=== PATIENT | female | born 1970 | race Caucasian/White ===

== ENCOUNTER 2019-11-05 11:04 | Outpatient (CLI) | payer OTHER, MEDICARE, MEDICAID, SELFPAY ==
--- NOTE | ~2019-11-05 | MM_ITS ---
EXAMINATION: MM screening [place] BI w lesli HISTORY: Screening mammogram TECHNIQUE: Craniocaudal and mediolateral oblique 3-D tomosynthesis images were obtained and synthetic 2-D images were generated. CAD analysis was submitted and interpreted. COMPARISON: Comparison to multiple prior studies sequentially, with oldest reviewed study dated 08/2015. BREAST PARENCHYMAL COMPOSITION: There are scattered areas of fibroglandular density. FINDINGS: There is no evidence of suspicious mass, calcification, or architectural distortion to sugg est malignancy in either breast. There has been no suspicious interval change. IMPRESSION: 1. No mammographic evidence of malignancy. 2. Recommend routine screening mammography in one year. BI-RADS Category 1: Negative Reviewed, dictated and finalized at location A.
== END 2019-11-05 11:05 | disposition home or self-care (01) ==
PROVIDERS: PCP Family Medicine; Visit Provider Family Medicine
DX: Z12.31 Encounter for screening mammogram for malignant neoplasm of breast (principal)
CPT/HCPCS: 77063; 77067

== ENCOUNTER 2019-11-28 09:56 | Outpatient (CLI) | payer OTHER, MEDICARE, MEDICAID, SELFPAY ==
[2019-11-28 10:25] LABS: Basophils Absolute Auto 0.05 K/mm3 (0.00-0.10); Basophils Percent Auto 0.6 % (0.0-1.0); Eosinophils Absolute Auto 0.19 K/mm3 (0.02-0.50); Eosinophils Percent Auto 2.2 % (1.0-6.0); Hematocrit 37.9 % (35.0-49.0); Hemoglobin 11.6 g/dL (12.0-15.0); Immature Granulocyte Absolute 0.02 K/mm3 (0.00-0.00); Immature Granulocyte Percent A 0.2 % (0.0-0.0); Lymphocytes Absolute Auto 2.87 K/mm3 (1.10-4.50); Lymphocytes Percent Auto 32.9 % (18.0-42.0); Mean Corpuscular HGB Conc 30.6 g/dL (32.0-36.0); Mean Corpuscular Hemoglobin 22.1 pg (27.0-31.0); Mean Corpuscular Volume 72.2 fL (78.0-102.0); Monocytes Absolute Auto 0.75 K/mm3 (0.10-0.90); Monocytes Percent Auto 8.6 % (2.0-11.0); Neutrophils Absolute Auto 4.9 K/mm3 (1.7-7.2); Neutrophils Percent Auto 55.5 % (50.0-70.0); Platelet Count Result 393 K/mm3 (150-420); Red Blood Count 5.25 M/mm3 (4.20-5.40); Red Cell Distribution Width 16.2 % (11.6-14.4); White Blood Count 8.7 K/mm3 (4.8-10.8)
[2019-11-28 11:12] LABS: Alanine Aminotransferase 22 U/L (14-59); Albumin Level 3.5 g/dL (3.4-5.0); Alkaline Phosphatase 83 U/L (46-116); Anion Gap 11.2 mmol/L (7-16); Aspartate Amino Transferase 18 U/L (15-37); Bilirubin,Total 0.3 mg/dL (0.00-1.00); Blood Urea Nitrogen 18 mg/dL (7-18); Calcium 8.1 mg/dL (8.5-10.1); Carbon Dioxide 35 mmol/L (21-32); Chloride 95 mmol/L (98-108); Cholesterol 259 mg/dL (0-200); Estimated Glomerular Filt Rate 41; Glucose 110 mg/dL (70-99); HDL Direct 50 mg/dL (40-60); LDL Cholesterol Calculated 164 mg/dL (<130); Osmolality Calculated 288 mOsm/kg (285-295); Potassium 3.2 mmol/L (3.5-5.1); Sodium 138 mmol/L (136-145); Thyroid Stimulating Hormone Reflex 2.67 u/IU/mL (0.36-3.74); Total Protein 7.7 g/dL (6.4-8.2); Triglycerides 225 mg/dL (0-150)
== END 2019-11-28 09:57 | disposition home or self-care (01) ==
PROVIDERS: PCP Family Medicine; Visit Provider Family Medicine
DX: E03.9 Hypothyroidism, unspecified (principal); I10 Essential (primary) hypertension
CPT/HCPCS: 36415; 80053; 80061; 84443; 85025

== ENCOUNTER 2020-01-27 17:47 | Emergency (ER) | payer MEDICARE, MEDICAID, SELFPAY ==
--- NOTE | ~2020-01-27 | XR_ITS ---
EXAMINATION: XR foot RT min 3V DATE: 01/27/2020 20:19 INDICATION: Right fifth toe pain, initial encounter TECHNIQUE: Dorsoplantar, lateral, and 2 oblique views of the right foot were obtained. COMPARISON: 02/11/2017 FINDINGS: There is soft tissue swelling of the fifth toe. Mild osteoarthritis is seen at the lateral margin of the head of the fifth proximal phalanx. There is adjacent soft tissue swelling. No radiopaq ue foreign body is identified. Surgical changes are noted in the head of the fifth metatarsal as well as in the lateral malleolus. A plantar calcaneal enthesophyte is noted. IMPRESSION: 1. Findings suggestive of fracture at the lateral margin of the head of the fifth proximal phalanx. Reviewed, dictated and finalized at location A. IMPRESSION: 1. Findings suggestive of fracture at the lateral margin of the head of the fif th proximal phalanx.
--- NOTE | 2020-01-27 19:40 | ED.LOWEXIN ---
HPI - Extremity Injury (Lower) General Chief Complaint: Extremity Injury, Lower Stated Complaint: foot pain Time Seen by Provider: 01/27/20 19:52 Source: patient Mode of arrival: ambulatory Limitations: no limitations History of Present Illness HPI Narrative: 49-year-old woman comes in today complaining of a laceration between her right 4th and 5th toes that occurred approximately 5 hours ago. Patient states that she was walking outdoors and her socks when she stepped on a nail. She denies any numbness or tingling. She states that she had surgery of her right 5th toe several years ago. She denies history of diabetes. She states it has been greater than 5 years since her last tetanus shot. complaint: foot injury Injury: Right: toes Type of Injury: eversion and laceration Place: home and street/outdoors Severity: moderate Relieving factors: nothing Exacerbating factors: weight bearing, movement and palpation Context: walking and stepped on nail Associated symptoms: ambulatory Related Data Home Medications Medication Instructions Recorded Confirmed dexlansoprazole 60 mg 60 mg PO DAILY 06/04/19 01/08/20 capsule,biphase delayed release nystatin 100,000 unit/gram topical 1 applic TOPICAL BID 06/04/19 01/08/20 powder acetaminophen 500 mg capsule 500 mg PO Q6H PRN 11/05/19 01/08/20 Allergies Allergy/AdvReac Type Severity Reaction Status Date / Time Sulfa (Sulfonamide Allergy Unknown Unknown Verified 01/08/20 13:54 Antibiotics) Review of Systems Constitutional: Constitutional: Denies chills and Denies fever(s) Respiratory: Respiratory: Denies cough and Denies dyspnea Gastrointestinal: Gastrointestinal: Denies nausea and Denies vomiting Musculoskeletal: Musculoskeletal: Denies back pain, Reports arthralgias and Denies joint swelling Integumentary/Breasts: Skin/Breast: Denies pruritus, Denies rash and Denies skin ulcer Neurologic: Denies vertigo, Denies dizziness and Denies syncope Hematologic/Lymphatic: Hematologic/Lymphatic: Denies easy bleeding and Denies easy bruising PMFSH Past Medical History Medical History Depression GERD (gastroesophageal reflux disease) HTN (hypertension) Hyperlipidemia Hypothyroidism Osteoarthritis Osteoarthritis of right shoulder Trochanteric bursitis, right hip Surgical History Surgical History History of shoulder surgery (~07/23/18) Lt - Subscap Tendon Repair History of total replacement of left shoulder joint History of total shoulder replacement (~06/24/18) Lt Hx of cholecystectomy Hx of colonoscopy Hx of total knee replacement Right 2014 Left 2015 Family History Family History Sister Family history of migraine headaches Social History Social History Smoking status: Never smoker Tobacco type: cigarettes Alcohol intake: never Exam Const: General: healthy appearing and alert Nutritional Appearance: obese Orientation/consciousness: patient oriented x3 Limitations: no limitations Other: mild acute distress Resp: Effort & Inspection: normal respiratory effort and not labored Auscultation: clear to auscultation bilaterally, no rales, no rhonchi and no wheezes Cardio: Rate: regular rate Rhythm: regular rhythm Heart sounds: no murmurs Skin: General skin exam: normal color, no jaundice and no pallor Rashes: no rashes Other: 1 cm laceration in the interdigital space of the right 4th and 5th toes. Minimal gaping. No foreign body noted. Neuro: General: patient oriented x3, moves all extremities, no focal motor deficits and CN's II-XI intact bilaterally Speech: normal speech Other: Antalgic gait Extrem: General: normal to inspection and no clubbing, cyanosis or edema Psych: Appearance: grossly normal and well ke
[2020-01-27 19:52] VITALS: BP 141/96; PULSE 112; RESP 18; TEMP 36.8; O2SAT 94
[2020-01-27] MEDS: ACETAMINOPHEN/CODEINE (*CRX) 300/30 MG TABLET 1 TAB PO (20:39)
[2020-01-27] MEDS: TETANUS,DIPHTHERIA,AC PERTUSSIS ADULT 0.5 ML (ADACEL) IM (20:40)
[2020-01-27 21:05] VITALS: BP 146/78; PULSE 106; RESP 18; O2SAT 96
--- NOTE | 2020-01-27 21:07 | PC.NURSE ---
Right 5th toe cleansed, topical ABX ointment applied, wrapped in gauze. Walking boot applied and patient verbalized understanding of instructions
== END 2020-01-27 21:15 | disposition home or self-care (01) ==
PROVIDERS: Emergency Provider Emergency Medicine; PCP Family Medicine
DX: S91.114A Laceration without foreign body of right lesser toe(s) without damage to nail, initial encounter (principal); S92.354A Nondisplaced fracture of fifth metatarsal bone, right foot, initial encounter for closed fracture; W45.0XXA Nail entering through skin, initial encounter
CPT/HCPCS: 73630; 90471; 90715; 99283; 99284; A9270; L2112

== ENCOUNTER 2020-02-05 14:19 | Outpatient (CLI) | payer MEDICARE, OTHER, MEDICAID, SELFPAY ==
--- NOTE | 2020-02-05 14:22 | ECG_ITS ---
Measurements Intervals [place] Rate: 102 P: 58 VT: 162 QRS: 30 QRSD: 90 T: 50 QT: 372 QTc: 487 Interpretive Statements SINUS TACHYCARDIA LOW QRS VOLTAGE IN PRECORDIAL LEADS NONSPECIFIC ST & T-WAVE ABNORMALITY- DIFFUSE LEADS BASELINE ARTIFACT- II, III BORDERLINE ECG Electronically Signed On 02-05-2020 15:50:48 CDT by Delvin Whitehead D.O.
== END 2020-02-05 14:20 | disposition home or self-care (01) ==
PROVIDERS: PCP Nurse Practitioner Family; Visit Provider Nurse Practitioner Family
DX: R00.9 Unspecified abnormalities of heart beat (principal)
CPT/HCPCS: 93005

== ENCOUNTER 2020-03-05 09:19 | Outpatient (CLI) | payer OTHER, MEDICAID, SELFPAY ==
--- NOTE | ~2020-03-05 | XR_ITS ---
XR foot RT min 3V 03/05/2020 09:53 Indication: Right foot fracture follow-up Procedure: 4 views right foot Comparison: 01/27/2020 Findings: There is a nondisplaced fracture fifth proximal phalanx of the head no significant displace ment. Amputation distal aspect of the fifth metatarsal. No significant soft tissue abnormality. Lisfr anc joint is intact. No foreign bodies identified. There is a prominent degenerative calcaneal enthes ophyte. Impression: 1: Stable nondisplaced fracture distal aspect of the right fifth proximal phalanx. Reviewed, dictated and finalized at location A. Impression: 1: Stable nondisplaced fracture distal aspect of the right fifth proximal phala nx.
== END 2020-03-05 09:20 | disposition home or self-care (01) ==
LOC: CHSIMG 09:22
PROVIDERS: PCP Family Medicine; Visit Provider Podiatrist
DX: M79.671 Pain in right foot (principal); S92.514D Nondisplaced fracture of proximal phalanx of right lesser toe(s), subsequent encounter for fracture with routine healing
CPT/HCPCS: 73630

== ENCOUNTER 2020-12-08 13:38 | Outpatient (CLI) | payer OTHER, MEDICARE, MEDICAID, SELFPAY ==
--- NOTE | ~2020-12-08 | MM_ITS ---
EXAMINATION: MM screening dionne BI w lesli HISTORY: Screening TECHNIQUE: Craniocaudal and mediolateral oblique 3-D tomosynthesis images were obtained and synthetic 2-D images were generated. CAD analysis was submitted and interpreted. COMPARISON: 11/05/2019 BREAST PARENCHYMAL COMPOSITION: There are scattered areas of fibroglandular density. FINDINGS: There is no evidence of suspicious mass, calcification, or architectural distortion to sugg est malignancy in either breast. There has been no suspicious interval change. IMPRESSION: 1. No mammographic evidence of malignancy. 2. Recommend routine screening mammography in one year. BI-RADS Category 1: Negative Reviewed, dictated and finalized at location A.
== END 2020-12-08 13:39 | disposition home or self-care (01) ==
LOC: CHSIMG 13:42
PROVIDERS: PCP Family Medicine; Visit Provider Family Medicine
DX: Z12.31 Encounter for screening mammogram for malignant neoplasm of breast (principal)
CPT/HCPCS: 77063; 77067

== ENCOUNTER 2021-04-03 08:36 | Outpatient (CLI) | payer OTHER, MEDICARE, MEDICAID, SELFPAY ==
[2021-04-03 08:48] LABS: Basophils Absolute Auto 0.05 K/mm3 (0.00-0.10); Basophils Percent Auto 0.5 % (0.0-1.0); Eosinophils Absolute Auto 0.17 K/mm3 (0.02-0.50); Eosinophils Percent Auto 1.6 % (1.0-6.0); Hematocrit 34.6 % (35.0-49.0); Hemoglobin 10.2 g/dL (12.0-15.0); Immature Granulocyte Absolute 0.03 K/mm3 (0.00-0.00); Immature Granulocyte Percent A 0.3 % (0.0-0.0); Lymphocytes Percent Auto 22.8 % (18.0-42.0); Mean Corpuscular HGB Conc 29.5 g/dL (32.0-36.0); Mean Corpuscular Hemoglobin 21.3 pg (27.0-31.0); Mean Corpuscular Volume 72.1 fL (78.0-102.0); Mean Platelet Volume 9.8 fl (9.2-11.8); Monocytes Absolute Auto 0.78 K/mm3 (0.10-0.90); Monocytes Percent Auto 7.1 % (2.0-11.0); Neutrophils Absolute Auto 7.4 K/mm3 (1.7-7.2); Neutrophils Percent Auto 67.7 % (50.0-70.0); Platelet Count Result 382 K/mm3 (150-420); Red Cell Distribution Width 16.2 % (11.6-14.4)
[2021-04-03 10:34] LABS: Alanine Aminotransferase 14 U/L (14-59); Albumin Level 3.5 g/dL (3.4-5.0); Alkaline Phosphatase 90 U/L (46-116); Anion Gap 9 mmol/L (8-16); Aspartate Amino Transferase 14 U/L (15-37); Bilirubin,Total 0.3 mg/dL (0.00-1.00); Blood Urea Nitrogen 21 mg/dL (7-18); Calcium 8.2 mg/dL (8.5-10.1); Carbon Dioxide 33 mmol/L (21-32); Chloride 100 mmol/L (98-108); Cholesterol 189 mg/dL (0-200); Estimated Glomerular Filt Rate 44; Glucose 106 mg/dL (70-99); HDL Direct 48 mg/dL (40-60); LDL Cholesterol Calculated 107 mg/dL (<130); Osmolality Calculated 297 mOsm/kg (285-295); Potassium 3.9 mmol/L (3.5-5.1); Sodium 142 mmol/L (136-145); Total Protein 7.9 g/dL (6.4-8.2); Triglycerides 170 mg/dL (0-150)
== END 2021-04-03 08:37 | disposition home or self-care (01) ==
LOC: CHSLAB 08:40
PROVIDERS: PCP Family Medicine; Visit Provider Family Medicine
DX: E83.51 Hypocalcemia (principal); E87.6 Hypokalemia; I10 Essential (primary) hypertension; E78.5 Hyperlipidemia, unspecified; E03.9 Hypothyroidism, unspecified
CPT/HCPCS: 36415; 80053; 80061; 84443; 85025

== ENCOUNTER 2021-04-12 13:25 | Outpatient (NON) | payer OTHER, MEDICARE, MEDICAID, SELFPAY | END 2021-04-12 13:26 | disposition home or self-care (01) | LOC: CHSLAB 13:38 | PROVIDERS: Visit Provider Nurse Practitioner Family | DX: Z12.4 Encounter for screening for malignant neoplasm of cervix (principal); Z13.89 Encounter for screening for other disorder | CPT/HCPCS: 87491; 87591; 87624; 88175; G0145 ==

== ENCOUNTER → 2021-07-15 00:17 | Outpatient (CLI) | payer OTHER, MEDICARE, MEDICAID, SELFPAY ==
[2021-07-15 12:27] LABS: SARS-CoV-2 RNA PCR Negative
== END ==
PROVIDERS: PCP Family Medicine; Visit Provider Internal Medicine Gastroenterology
DX: Z01.812 Encounter for preprocedural laboratory examination (principal); Z20.822 Contact with and (suspected) exposure to COVID-19
CPT/HCPCS: C9803; U0003; U0005

== ENCOUNTER 2021-07-19 00:18 | Day surgery (SDC) | payer OTHER, MEDICARE, MEDICAID, SELFPAY ==
[2021-06-05 13:54] VITALS: BMI 40.8
--- NOTE | 2021-07-07 15:03 | PC.NURSE ---
Called pt. No change from previous PAT call.
[2021-07-19 08:05] VITALS: BP 150/100; PULSE 100; RESP 20; TEMP 36.1; O2SAT 99
[2021-07-19] MEDS: LACTATED RINGERS 1,000 ML 150 ML IV CONT (08:13)
--- NOTE | 2021-07-19 08:21 | WPDANESEPPF ---
Anes - Initial Pre Proc Eval Procedure: Operation Date: 07/19/21 09:00 Proposed Procedures p Esophagogastroduodenoscopy - Rickie Roque MD Date/Time: 07/19/21 08:21 Surgeon: Rickie Roque MD Pre Op Diagnosis: GERD, dysphagia Patient Data Age: 51 Gender: F Height: 1.52 m Weight: 97 kg Last Vital Signs Temp 36.1 C L 07/19/21 08:05 Pulse 100 07/19/21 08:05 Resp 20 07/19/21 08:05 BP 150/100 H 07/19/21 08:05 Pulse Ox 99 07/19/21 08:05 Allergies Allergy/AdvReac Type Severity Reaction Status Date / Time Sulfa (Sulfonamide Allergy Unknown Unknown Verified 07/19/21 08:02 Antibiotics) Home Medications Medication Instructions Recorded Confirmed Type nabumetone 500 mg tablet 500 mg PO BID 06/03/20 07/07/21 History acetaminophen 500 mg capsule See Rx Instructions .ROUTE 07/01/20 07/07/21 Rx .COMPLEX #120 capsule calcium carbonate 500 mg calcium 1,000 mg PO BID #60 tablet 04/07/21 07/07/21 Rx (1,250 mg) tablet cholecalciferol (vitamin D3) 125 125 mcg PO DAILY #30 cap 04/07/21 07/07/21 Rx mcg (5,000 unit) capsule famotidine 20 mg tablet 20 mg PO QHS 90 Days #90 tablet 05/01/21 07/07/21 Rx atorvastatin 40 mg tablet 40 mg PO DAILY #90 tablet 05/22/21 07/07/21 Rx chromium-brindal muhammad [Garcinia 1 tablet PO BID 06/05/21 07/07/21 History Cambogia] ferrous sulfate 325 mg PO EVERY OTHER DAY 06/05/21 07/07/21 History hydrochlorothiazide 25 mg tablet 25 mg PO DAILY #90 tablet 06/05/21 07/07/21 Rx nystatin 100,000 unit/gram topical 1 applic TOPICAL BID #60 g 06/21/21 07/07/21 Rx powder omeprazole 40 mg capsule,delayed 40 mg PO DAILY 90 Days #90 cap 06/23/21 07/07/21 Rx release Patient hx anesthesia problems: none Family hx anesthesia problems: none Results Review: All pre-operative results and documents have been reviewed as part of the pre-operative evaluation. [facility] [place] Past Medical History Medical History Depression GERD (gastroesophageal reflux disease) HTN (hypertension) Hyperlipidemia Hypocalcemia Hypothyroidism Osteoarthritis Osteoarthritis of right shoulder Sebaceous cyst Trochanteric bursitis, right hip Surgical History Surgical History History of shoulder surgery (~07/23/18) Lt - Subscap Tendon Repair History of total replacement of left shoulder joint History of total shoulder replacement (~06/24/18) Lt Hx of cholecystectomy Hx of colonoscopy Hx of total knee replacement Right 2014 Left 2015 Family History Family History Sister Family history of migraine headaches Social History Social History Smoking status: Never smoker Alcohol intake: current Alcohol use details: Occasional use Substance use type: does not use Living arrangements: alone Gender identity (if verbalized by the patient): Female Spiritual care concerns: No Anes - Eval Final PreProcedure Day of Procedure 07/19/21 08:21 Patient weight: morbidly obese Heart: regular rate and rhythm Lungs: clear to auscultation Airway: Mallampati scale class II and special considerations poor opening Neurological: alert and oriented Last oral intake: >/= 8 hours ASA classification: III Emergent: no Anesthetic plan: proceed Anesthesia type and monitoring: general GIVS and standard monitoring Results Review: All pre-operative results and documents have been reviewed as part of the pre-operative evaluation. Informed Consent: The patient's anesthetic plan and its attendant risks and benefits were discussed with the patient/family/POA. Questions were solicited and answers provided to the satisfaction of the patient/family/POA.
--- NOTE | 2021-07-19 08:46 | PM.HPGS ---
History of Present Illness History of Present Illness Consent: Risks, benefits, and alternatives have been discussed and questions answered. Patient agrees to proceed with procedure. Chief complaint: GERD, dysphagia Narrative: Lorena Jensen is a 51 year old female with dysphagia to solids. reports sensation in the neck area. She has hx of previous dilation- in 2019 with 54 fr Newman and in 2017. GERD on omeprazole and pepcid. Review of Systems Constitutional: Constitutional: Denies headache(s) and Denies weakness Eyes: Eyes: Denies blurry vision ENT: Reports Normal hearing present, Denies headache(s) and Denies neck pain Cardiovascular: Cardiovascular: Denies chest pain and Denies dyspnea Respiratory: Respiratory: Denies dyspnea Gastrointestinal: Gastrointestinal: Reports no additional gastrointestinal complaints Genitourinary: Genitourinary: Denies dysuria Musculoskeletal: Musculoskeletal: Denies neck pain Integumentary/Breasts: Skin/Breast: Denies dry skin Neurologic: Reports Normal hearing present, Denies headache(s) and Denies weakness Psychiatric: Psychiatric: Denies anxiety Endocrine: Endocrine: Denies change in body appearance Hematologic/Lymphatic: Hematologic/Lymphatic: Denies easy bleeding Allergic/Immunologic: Allergic/Immunologic: Denies urticaria [facility] Past Medical History Medical History (Updated 07/19/21 @ 08:46 by Rickie Roque MD) Depression Dysphagia GERD (gastroesophageal reflux disease) HTN (hypertension) Hyperlipidemia Hypocalcemia Hypothyroidism Osteoarthritis Osteoarthritis of right shoulder Sebaceous cyst Trochanteric bursitis, right hip Surgical History Surgical History History of shoulder surgery (~07/23/18) Lt - Subscap Tendon Repair History of total replacement of left shoulder joint History of total shoulder replacement (~06/24/18) Lt Hx of cholecystectomy Hx of colonoscopy Hx of total knee replacement Right 2014 Left 2014 Family History Family History Sister Family history of migraine headaches Social History Social History Smoking status: Never smoker Alcohol intake: current Alcohol use details: Occasional use Substance use type: does not use Living arrangements: alone Gender identity (if verbalized by the patient): Female Spiritual care concerns: No Meds Home Medications and Allergies Home Medications Medication Instructions Recorded Confirmed Type nabumetone 500 mg tablet 500 mg PO BID 06/03/20 07/07/21 History acetaminophen 500 mg capsule See Rx Instructions .ROUTE 07/01/20 07/07/21 Rx .COMPLEX #120 capsule calcium carbonate 500 mg calcium 1,000 mg PO BID #60 tablet 04/07/21 07/07/21 Rx (1,250 mg) tablet cholecalciferol (vitamin D3) 125 125 mcg PO DAILY #30 cap 04/07/21 07/07/21 Rx mcg (5,000 unit) capsule famotidine 20 mg tablet 20 mg PO QHS 90 Days #90 tablet 05/01/21 07/07/21 Rx atorvastatin 40 mg tablet 40 mg PO DAILY #90 tablet 05/22/21 07/07/21 Rx chromium-brindal muhammad [Garcinia 1 tablet PO BID 06/05/21 07/07/21 History Cambogia] ferrous sulfate 325 mg PO EVERY OTHER DAY 06/05/21 07/07/21 History hydrochlorothiazide 25 mg tablet 25 mg PO DAILY #90 tablet 06/05/21 07/07/21 Rx nystatin 100,000 unit/gram topical 1 applic TOPICAL BID #60 g 06/21/21 07/07/21 Rx powder omeprazole 40 mg capsule,delayed 40 mg PO DAILY 90 Days #90 cap 06/23/21 07/07/21 Rx release Allergies Allergy/AdvReac Type Severity Reaction Status Date / Time Sulfa (Sulfonamide Allergy Unknown Unknown Verified 07/19/21 08:02 Antibiotics) Vital Signs Vital Signs - 24 hr 07/19/21 08:05 Temperature 97 F L Pulse Rate 100 Respiratory Rate 20 Blood Pressure 150/100 H Pulse Oximetry 99 Exam Const: General: comfortable and no acute distr
[2021-07-19 09:06] VITALS: BP 149/124; PULSE 105; RESP 22; O2SAT 95
[2021-07-19 09:16] VITALS: BP 143/91; PULSE 100; RESP 20; O2SAT 95
[2021-07-19 09:26] VITALS: BP 163/105; PULSE 92; RESP 19; O2SAT 99
== END 2021-07-19 11:05 | disposition home or self-care (01) ==
PROVIDERS: PCP Family Medicine; Visit Provider Internal Medicine Gastroenterology
PROC: 0DJ08ZZ Inspection of Upper Intestinal Tract, Via Natural or Artificial Opening Endoscopic (ICD-10-PCS; CPT 43235; principal; 2021-07-19 09:00)
DX: R13.10 Dysphagia, unspecified (principal); K21.9 Gastro-esophageal reflux disease without esophagitis; K44.9 Diaphragmatic hernia without obstruction or gangrene; K29.70 Gastritis, unspecified, without bleeding; K25.9 Gastric ulcer, unspecified as acute or chronic, without hemorrhage or perforation; I10 Essential (primary) hypertension; E78.5 Hyperlipidemia, unspecified; E83.51 Hypocalcemia; E03.9 Hypothyroidism, unspecified; F32.9 Major depressive disorder, single episode, unspecified; E66.01 Morbid (severe) obesity due to excess calories; Z68.41 Body mass index [BMI] 40.0-44.9, adult
CPT/HCPCS: 43248; 43239; 88305; C9803; J2704; J7120; U0003; U0005

== ENCOUNTER 2021-10-14 07:59 | Outpatient (CLI) | payer OTHER, MEDICARE, MEDICAID, SELFPAY ==
[2021-10-14 08:46] LABS: Hemoglobin A1C 5.9 % (<5.7); Thyroid Stimulating Hormone Reflex 2.21 u/IU/mL (0.36-3.74)
== END 2021-10-14 08:00 | disposition home or self-care (01) ==
LOC: CHSLAB 08:01
PROVIDERS: PCP Family Medicine; Visit Provider Family Medicine
DX: E03.9 Hypothyroidism, unspecified (principal); E11.9 Type 2 diabetes mellitus without complications
CPT/HCPCS: 36415; 83036; 84443

== ENCOUNTER 2022-03-02 13:57 | Outpatient (CLI) | payer MEDICARE, MEDICAID, SELFPAY ==
--- NOTE | ~2022-03-02 | MM_ITS ---
EXAMINATION: MM screening [facility] BI w lesli HISTORY: Screening mammogram TECHNIQUE: Craniocaudal and mediolateral oblique 3-D tomosynthesis images were obtained and synthetic 2-D images were generated. CAD analysis was submitted and interpreted. COMPARISON: 12/08/2020, 11/05/2019, 03/25/2018 BREAST PARENCHYMAL COMPOSITION: The breasts are almost entirely fatty. FINDINGS: No suspicious mass, calcification, or architectural distortion are identified in either [place]ul[place] ast to suggest malignancy. There has been no suspicious interval change. IMPRESSION: 1. No mammographic evidence of malignancy. 2. Recommend routine screening mammography in one year. BI-RADS Category 1: Negative Reviewed, dictated and finalized at location A.
== END 2022-03-02 13:58 | disposition home or self-care (01) ==
LOC: CHSIMG 13:59
PROVIDERS: PCP Family Medicine; Visit Provider Family Medicine
DX: Z12.31 Encounter for screening mammogram for malignant neoplasm of breast (principal)
CPT/HCPCS: 77063; 77067

== ENCOUNTER 2022-03-26 17:35 | Emergency (ER) | payer MEDICARE, MEDICAID, SELFPAY ==
[2022-03-26 18:37] VITALS: BP 130/59; PULSE 104; RESP 18; TEMP 36.3; O2SAT 100
--- NOTE | 2022-03-26 20:25 | ED.GENADULT ---
HPI - General Adult General Chief complaint: Unspecified Stated complaint: bump on abdomen Time Seen by Provider: 03/26/22 20:06 History of Present Illness HPI narrative: 52-year-old female presented to the emergency room for evaluation of an abscess on her abdomen. Patient states that she noticed pain painful mass 2 days ago. is at the bedside, and he states that he tried expressed drainage from it but was unsuccessful. Related Data Home Medications Medication Instructions Recorded Confirmed arnica 20 % topical tincture ea topical 03/19/22 03/19/22 Allergies Allergy/AdvReac Type Severity Reaction Status Date / Time Sulfa (Sulfonamide Allergy Unknown Unknown Verified 03/26/22 18:39 Antibiotics) Review of Systems Review of Systems: CONSTITUTIONAL: Denies fever, chills, or sweats. EYES: Denies visual changes, redness, or discharge. ENT: Denies rhinorrhea, congestion, sore throat, or otalgia. CARDIOVASCULAR: Denies chest pain, palpitations, or edema. RESPIRATORY: Denies cough or dyspnea. GASTROINTESTINAL: Denies abdominal pain, nausea, vomiting, or diarrhea. GENITOURINARY: Denies dysuria or hematuria. SKIN: Painful subcutaneous mass to anterior torso MUSCULOSKELETAL: Denies back pain, joint pain, or myalgia. NEUROLOGIC: Denies headache, numbness, dizziness, or weakness. PSYCHIATRIC: Denies anxiety or depression. [facility] Past Medical History Medical History Depression GERD (gastroesophageal reflux disease) Hiatal hernia HTN (hypertension) Hyperlipidemia Hypocalcemia Hypokalemia Hypothyroidism Osteoarthritis Surgical History Surgical History History of shoulder surgery (~07/23/18) Lt - Subscap Tendon Repair History of total replacement of left shoulder joint History of total shoulder replacement (~06/24/18) Lt Hx of cholecystectomy Hx of colonoscopy Hx of total knee replacement Right 2013 Left 2014 Family History Family History Sister Family history of migraine headaches Mother Hypertension Other Heart disease Skin cancer Social History Social History Smoking status: Never smoker Alcohol intake: current Alcohol use details: Occasional use Substance use: never Substance use type: does not use Lack of Transportation: No Lack of Food: Never True Current Housing: I Have Housing Concerned About Future Housing: No Difficulty Paying Gas/Electric Bills: YES Difficulty Paying for Meds: No Currently Unemployed: No Education: High School Diploma/GED Difficulty w/ Childcare or Family Care: No Additional occupation/education comments: Disabled Gender identity (if verbalized by the patient): Female Spiritual care concerns: No Exam Narrative: GENERAL: Well-appearing, well-nourished, no physical limitations, and in no acute distress. HEAD: Normocephalic, atraumatic. EYES: Conjunctivae normal, PERRLA and EOMI. CHEST: Clear to auscultation. No respiratory distress. No wheezes rales or rhonchi. HEART: Regular rate and rhythm. No murmur heard. Normal peripheral pulses. EXTREMITIES: Normal range of motion. No edema. No clubbing or cyanosis SKIN: 3 x 3 cm area of induration to periumbilical area with a superficial pinpoint abscess. No signs of lymphangitic spread NEURO: No focal deficits. Alert and oriented x3. MAEW. CN's II-XI intact bilaterally, normal gait PSYCH: Cooperative. Normal mood and affect. Course Vital Signs Vital signs: Vital Signs Temperature 36.3 C L 03/26/22 18:37 Pulse Rate 104 H 03/26/22 18:37 Respiratory Rate 18 03/26/22 18:37 Blood Pressure 130/59 L 03/26/22 18:37 Pulse Oximetry 100 03/26/22 18:37 Temperature 36.3 C L 03/26/22 18:37 Pulse Rate 104 H 03/26/22 18:37 Respiratory Rate 1
== END 2022-03-26 21:13 | disposition home or self-care (01) ==
LOC: ANHED 21:03
PROVIDERS: Emergency Provider Nurse Practitioner Family; PCP Family Medicine
DX: L02.211 Cutaneous abscess of abdominal wall (principal); I10 Essential (primary) hypertension; E78.5 Hyperlipidemia, unspecified; E03.9 Hypothyroidism, unspecified; K21.9 Gastro-esophageal reflux disease without esophagitis; M19.90 Unspecified osteoarthritis, unspecified site; Z96.612 Presence of left artificial shoulder joint; Z96.651 Presence of right artificial knee joint
CPT/HCPCS: 99283

== ENCOUNTER 2022-04-19 16:02 | Outpatient (CLI) | payer MEDICARE, MEDICAID, SELFPAY ==
--- NOTE | 2022-04-19 16:08 | ECG_ITS ---
Measurements Intervals [place] Rate: 99 P: 67 VT: 158 QRS: 15 QRSD: 78 T: 7 QT: 327 QTc: 421 Interpretive Statements SINUS RHYTHM LOW QRS VOLTAGE IN PRECORDIAL LEADS [QRS DEFLECTION < 1.0 mV IN CHEST LEADS] NONSPECIFIC T-WAVE ABNORMALITY BASELINE ARTIFACT COMPARED TO ECG 02/05/2020 14:37:58 THE RATE IS SOMEWHAT SLOWER T-WAVE ABNORMALITY NOW PRESENT Electronically Signed On 04-19-2022 20:09:34 SYSTEMS DESIGN ENGINEER by Summer Mcnulty M.D.
[2022-04-19 16:33] LABS: Hematocrit 38.3 % (35.0-49.0); Hemoglobin 12.6 g/dL (12.0-15.0); Mean Corpuscular HGB Conc 32.9 g/dL (32.0-36.0); Mean Corpuscular Hemoglobin 28.9 pg (27.0-31.0); Mean Corpuscular Volume 87.8 fL (78.0-102.0); Platelet Count Result 273 K/mm3 (150-420); Red Blood Count 4.36 M/mm3 (4.20-5.40); Red Cell Distribution Width 12.4 % (11.6-14.4)
[2022-04-19 17:29] LABS: Alanine Aminotransferase 33 U/L (14-59); Albumin Level 3.7 g/dL (3.4-5.0); Alkaline Phosphatase 83 U/L (46-116); Anion Gap 8 mmol/L (8-16); Aspartate Amino Transferase 19 U/L (15-37); Bilirubin,Total 0.3 mg/dL (0.00-1.00); Blood Urea Nitrogen 23 mg/dL (7-18); Calcium 8.3 mg/dL (8.5-10.1); Carbon Dioxide 31 mmol/L (21-32); Chloride 101 mmol/L (98-108); Estimated Glomerular Filt Rate 36; Glucose 92 mg/dL (70-99); Osmolality Calculated 293 mOsm/kg (285-295); Sodium 140 mmol/L (136-145); Total Protein 7.4 g/dL (6.4-8.2)
[2022-04-19 19:06] LABS: Thyroid Stimulating Hormone Reflex 3.43 u/IU/mL (0.36-3.74)
== END 2022-04-19 16:03 | disposition home or self-care (01) ==
PROVIDERS: PCP Family Medicine; Visit Provider Family Medicine
DX: E03.9 Hypothyroidism, unspecified (principal); E11.9 Type 2 diabetes mellitus without complications; I10 Essential (primary) hypertension
CPT/HCPCS: 36415; 80053; 84443; 85027; 93005

== ENCOUNTER 2022-09-24 08:58 | Outpatient (CLI) | payer MEDICARE, MEDICAID, SELFPAY ==
--- NOTE | ~2022-09-24 | XR_ITS ---
EXAMINATION: XR chest 2V DATE: 09/24/2022 10:42 INDICATION: Esophageal reflux disease without esophagitis TECHNIQUE: PA and lateral views of the chest were obtained. COMPARISON: Chest radiograph dated 01/18/2015 FINDINGS: The lungs are clear with no focal airspace opacities, pulmonary edema, pleural effusion or pneumothor ax. Heart size is normal. Cholecystectomy clips in right upper quadrant. Right glenohumeral osteoarth ritis and left total shoulder arthroplasty. Mild thoracic and moderate lumbar spondylosis. IMPRESSION: 1. No acute cardiopulmonary disease. Reviewed, dictated and finalized at location A.
--- NOTE | 2022-09-24 10:10 | ECG_ITS ---
Measurements Intervals Miller Rate: 90 P: 78 AK: 158 QRS: 2 QRSD: 69 T: -1 QT: 348 QTc: 428 Interpretive Statements SINUS RHYTHM DELAYED PRECORDIAL R/S TRANSITION LOW QRS VOLTAGE IN PRECORDIAL LEADS CONSIDER INFERIOR INFARCT, AGE INDETERMINATE BASELINE ARTIFACT- I, II, III, AVR ABNORMAL ECG COMPARED TO ECG 04/19/2022 18:16:25 NO SIGNIFICANT CHANGES Electronically Signed On 09-24-2022 11:31:11 CDT by Delvin Whitehead D.O.
[2022-09-24 11:16] LABS: Basophils Percent Auto 0.4 % (0.2-1.2); Eosinophils Absolute Auto 0.2 K/mm3 (0-0.3); Eosinophils Percent Auto 1.6 % (0-4.4); Hematocrit 38.7 % (37.0-47.0); Hemoglobin 12.5 g/dL (12.0-15.0); Immature Granulocyte Absolute 0.01 K/mm3 (0.00-0.031); Immature Granulocyte Percent A 0.1 % (0-0.5); Lymphocytes Absolute Auto 3.23 K/mm3 (0.9-3.2); Lymphocytes Percent Auto 33.8 % (18.3-44.2); Mean Corpuscular HGB Conc 32.3 g/dl (32-36); Mean Corpuscular Hemoglobin 27.5 pg (26-34); Mean Corpuscular Volume 85.1 fl (80-100); Mean Platelet Volume 11.1 fl (7.4-10.4); Monocytes Absolute Auto 0.9 K/mm3 (0.1-0.6); Monocytes Percent Auto 8.9 % (2.6-8.5); Neutrophils Absolute Auto 5.3 K/mm3 (1.3-6.7); Neutrophils Percent Auto 55.2 % (45.5-73.1); Platelet Count Result 281 k/mm3 (150-375); Red Blood Count 4.55 M/mm3 (4.2-5.4); Red Cell Distribution Width 12.9 % (11.5-14.5); White Blood Count 9.6 K/mm3 (4.5-10.0)
[2022-09-24 11:27] LABS: Anion Gap 8 mmol/L (8-16); Blood Urea Nitrogen 26 mg/dL (7-17); Calcium 8.9 mg/dL (8.4-10.2); Carbon Dioxide 30 mmol/L (22-30); Chloride 102 mmol/L (98-107); Estimated Glomerular Filt Rate 47; Glucose 98 mg/dL (65-110); Sodium 140 mmol/L (137-145)
[2022-09-24 11:31] LABS: INR 0.9; Prothrombin Time 12.7 Seconds (11.1-14.7)
[2022-09-24 11:32] LABS: Partial Thromboplastin Time 26.4 SECONDS (22.3-36.8)
== END 2022-09-24 08:59 | disposition home or self-care (01) ==
PROVIDERS: Anesthesiology; PCP Family Medicine; Visit Provider Surgery
DX: K21.9 Gastro-esophageal reflux disease without esophagitis (principal); N18.32 Chronic kidney disease, stage 3b
CPT/HCPCS: 36415; 71046; 80048; 85025; 85610; 85730; 93005

== ENCOUNTER 2022-09-24 09:07 | Outpatient (CLI) | payer MEDICARE, MEDICAID, SELFPAY ==
[2022-09-24 11:34] LABS: Albumin Level 4.5 g/dL (3.5-5.1); Anion Gap 7 mmol/L (8-16); Blood Urea Nitrogen 26 mg/dL (7-17); Carbon Dioxide 31 mmol/L (22-30); Chloride 101 mmol/L (98-107); Estimated Glomerular Filt Rate 47; Glucose 99 mg/dL (65-110); Phosphorus 3.2 mg/dL (2.5-4.5); Potassium 3.8 mmol/L (3.4-5.0); Sodium 139 mmol/L (137-145)
[2022-09-24 11:39] LABS: Complement C3 144 mg/dL (88-165)
[2022-09-27 22:50] LABS: Albumin 3.9 g/dL (3.8-4.8); Alpha 1 Globulin 0.4 g/dL (0.2-0.3); Alpha 2 Globulin 0.9 g/dL (0.5-0.9); Beta 1 Globulin 0.5 g/dL (0.4-0.6); Gamma Globulin 1.2 g/dL (0.8-1.7); Protein, Total 7.2 g/dL (6.1-8.1)
[2022-09-29 11:46] LABS: Anti Glomerular Basement Memb <1.0 AI (<1.0)
[2022-09-30 21:57] LABS: ANCA Screen Negative (Negative)
== END 2022-09-24 09:08 | disposition home or self-care (01) ==
LOC: ANHLAB 09:09
PROVIDERS: PCP Family Medicine; Visit Provider Internal Medicine Nephrology
DX: I12.9 Hypertensive chronic kidney disease with stage 1 through stage 4 chronic kidney disease, or unspecified chronic kidney disease (principal); N18.32 Chronic kidney disease, stage 3b
CPT/HCPCS: 36415; 71046; 80048; 80069; 83520; 84155; 84165; 85025; 85610; 85730; 86036; 86038; 86160; 86225; 93005

== ENCOUNTER 2022-10-15 09:37 | Outpatient (CLI) | payer MEDICARE, MEDICAID, SELFPAY ==
--- NOTE | ~2022-10-15 | US_ITS ---
EXAMINATION: US renal BI DATE: 10/15/2022 10:04 INDICATION: Chronic kidney disease TECHNIQUE: Multiple grayscale and Doppler ultrasound images of the kidneys were obtained. COMPARISON: None. FINDINGS: The right kidney measures 9.4 x 3.7 x 4.0 cm. The left kidney measures 8.5 x 4.2 x 4.0 cm. The kidneys demonstrate normal parenchymal echogenicity. There is no hydronephrosis. The bladder not distended but unremarkable in appearance. IMPRESSION: 1. Bilateral atrophy of the kidneys. Reviewed, dictated and finalized at location A.
== END 2022-10-15 09:38 | disposition home or self-care (01) ==
LOC: ANHIMG 09:44
PROVIDERS: PCP Family Medicine; Visit Provider Internal Medicine Nephrology
DX: I12.9 Hypertensive chronic kidney disease with stage 1 through stage 4 chronic kidney disease, or unspecified chronic kidney disease (principal); N18.32 Chronic kidney disease, stage 3b
CPT/HCPCS: 76775

== ENCOUNTER 2022-10-17 06:03 | Day surgery (SDC) | payer MEDICARE, MEDICAID, SELFPAY ==
[2022-09-24 09:17] VITALS: BMI 38.9
--- NOTE | 2022-09-24 09:51 | PC.NURSE ---
Report to the Outpatient Waiting Room, entrance under the green pavilion located off [facility], at time __0745 on date _10/17/22 . Planned Procedure Time: __45 . Time changes happen often and if your time is changed the preop area will call you the afternoon before. - You and your visitor will be asked to self-screen and do not enter if you have any COVID symptoms. - A mask is optional within the hospital at this time. Patients may have clear liquids (water, carbonated beverages, clear teas, apple juice) until 3 hours prior to surgery with a maximum of 20 ounces. - No food from midnight until time of surgery - Infants may have breast milk until 4 hours before surgery, infant formula 6 hours prior to surgery. - Children will be allowed to drink immediately following surgery. If applicable, please bring a bottle or sippy cup to assist with drinking. Juice, water, soda, and popsicles are readily available. For infants on formula, please bring formula the day of surgery. Pacifiers are allowed. Take the following medications with a SIP of water the morning of surgery: __NONE DO NOT STOP ANY OF YOUR OTHER PRESCRIPTION MEDICATIONS PRIOR TO SURGERY ?EXCEPT THE FOLLOWING Medications to discontinue per physician ALL VITAMINS AND SUPPLEMENTS 3 DAYS PRE OP.LAST DOSE 10/14/22 HIBICLENS SHOWER MORNING OF SURGERY Please no make-up, nail french, hairspray, perfume, deodorant, or body powder the day of surgery. No jewelry (including any body piercings) or valuables the day of surgery, leave them at home. Please take a shower or bath the night before, or the morning of, surgery with an antibacterial soap. Wear comfortable, loose fitting clothing. Children are encouraged to wear pajamas. - Jewelry must be removed prior to entering the operating room. Rings and piercings that are not removed may be cut off. - The hospital will not accept responsibility for valuables. - Please leave all valuables, including medications, at home the day of surgery. If you are going home after surgery, a licensed driver recruiter must drive you home. - NO public transportation without another adult if you receive anesthesia. - We recommend that an adult stay with you for 24 hours following discharge. - We also recommend that you do not drive, make important decision, drink alcoholic beverages, or take any drugs that were not prescribed by your health care provider for at least 24 hours after your discharge time. For Pediatric surgeries, we recommend two adults accompany the child home. Follow any additional instructions given to you from your surgeon. If you or anyone in your household have experienced Covid symptoms in the past week, please notify your surgeon or the nurse liaison at the phone number below for possible testing. VERBAL AND WRITTEN instructions given to ___PATIENT and asked if any additional questions and then verbalized understanding. Patient advised to call surgeon office or pre surgery nurse liaison [phone] if any additional questions.
[2022-09-24 10:13] VITALS: BP 106/63; PULSE 95; RESP 18; TEMP 36.4; O2SAT 100
--- NOTE | 2022-10-16 10:40 | PM.IMHP ---
H&P: HPI History of Present Illness Date/Time: 10/16/22 10:40 Chief Complaint: Gastroesophageal reflux Narrative: patient is a 52-year-old woman who I saw initially in November of 2021. She had an EGD in July of 2021 which showed a medium hiatal hernia, felt to be about 4 cm in size. She also no was noted to have a Carrillo ulcer in the hiatal hernia. After seeing her in November, she was sent for esophageal manometry and pH testing. She completed both studies. Manometry showed normal esophageal motility. Her pH testing showed a markedly elevated DeMeester score of 37. She was at that time in the process of losing weight and had lost 20 lb. Her BMI was still over 40. We recommended holding off until she had lost more weight. She was successful in doing that and has had a BMI of 38.7 at her last office visit. She continues to have severe reflux symptoms despite taking Protonix in the morning and Pepcid in the evening. After several discussions in the office and careful consideration, she is taken to surgery now for laparoscopic Avery fundoplication. Review of Systems Review of Systems: All systems reviewed & are unremarkable except as noted in HPI and below ( HPI and those items noted below) Constitutional: Constitutional: Denies chills and Denies fever(s) Cardiovascular: Cardiovascular: Denies chest pain, Denies diaphoresis, Denies dyspnea and Denies paroxysmal nocturnal dyspnea Respiratory: Respiratory: Denies chest congestion, Denies cough and Denies dyspnea Integumentary/Breasts: Skin/Breast: Denies lesions and Denies rash PMFSH Past Medical History Medical History Depression GERD (gastroesophageal reflux disease) Hiatal hernia HTN (hypertension) Hyperlipidemia Hypocalcemia Hypokalemia Hypothyroidism Osteoarthritis Surgical History Surgical History History of shoulder surgery (~07/23/18) Lt - Subscap Tendon Repair History of total replacement of left shoulder joint History of total shoulder replacement (~06/24/18) Lt Hx of cholecystectomy Hx of colonoscopy Hx of total knee replacement Right 2014 Left 2014 Family History Family History Sister Family history of migraine headaches Mother Hypertension Other Heart disease Skin cancer Social History Social History Smoking status: Never smoker Alcohol intake: current Alcohol use details: Occasional use Substance use: never Substance use type: does not use Lack of Transportation: No Lack of Food: Never True Current Housing: I Have Housing Concerned About Future Housing: No Difficulty Paying Gas/Electric Bills: YES Difficulty Paying for Meds: No Currently Unemployed: No Education: High School Diploma/GED Difficulty w/ Childcare or Family Care: No Living arrangements: with family Occupation/Education: other Additional occupation/education comments: Disabled Gender identity (if verbalized by the patient): Female Spiritual care concerns: No Meds Home Medications and Allergies Home Medications Medication Instructions Recorded Confirmed Type famotidine 40 mg tablet See Rx Instructions .Route 03/09/22 09/24/22 Rx .COMPLEX #100 tabs atorvastatin 40 mg tablet See Rx Instructions .Route 03/15/22 09/24/22 Rx .COMPLEX #100 tabs vit C 250 mg-vit E 90 mg-zinc 40 1 tablet PO BID 04/09/22 09/24/22 History mg-copper 1 [id number]-frhurr-wnronv capsule (PreserVision AREDS-2) lisinopril 20 See Rx Instructions .Route 06/28/22 09/24/22 Rx mg-hydrochlorothiazide 25 mg tablet .COMPLEX #100 tabs cranberry 1,000 mg capsule 1,000 mg PO DAILY 09/24/22 09/24/22 History diphenhydramine 25 2 tablet PO HS PRN PAIN/INSOMNIA 09/24/22 09/24/22 History mg-acetaminophen 500 mg tablet (Tylenol PM Extra Strength
--- NOTE | 2022-10-18 12:37 | SUR.PREOP ---
Paper documentation exists on this patient due to [facility] downtime on 10/17/22
== END 2022-10-17 07:30 | disposition home or self-care (01) ==
LOC: ANHSURGERY 11-09 14:04
PROVIDERS: PCP Family Medicine; Visit Provider Surgery
DX: K21.9 Gastro-esophageal reflux disease without esophagitis (principal); Z53.8 Procedure and treatment not carried out for other reasons
CPT/HCPCS: 99199

== ENCOUNTER 2022-11-08 09:25 | Outpatient (CLI) | payer MEDICARE, MEDICAID, SELFPAY ==
[2022-11-08 10:00] LABS: Anion Gap 7 mmol/L (8-16); Blood Urea Nitrogen 25 mg/dL (7-17); Calcium 8.4 mg/dL (8.4-10.2); Carbon Dioxide 32 mmol/L (22-30); Chloride 100 mmol/L (98-107); Estimated Glomerular Filt Rate 47; Glucose 106 mg/dL (65-110); Potassium 4.3 mmol/L (3.4-5.0); Sodium 139 mmol/L (137-145)
[2022-11-08 10:02] LABS: INR 0.9; Prothrombin Time 12.1 Seconds (11.1-14.7)
== END 2022-11-08 09:26 | disposition home or self-care (01) ==
PROVIDERS: Anesthesiology; PCP Family Medicine; Visit Provider Surgery
DX: I12.9 Hypertensive chronic kidney disease with stage 1 through stage 4 chronic kidney disease, or unspecified chronic kidney disease (principal); N18.30 Chronic kidney disease, stage 3 unspecified; K21.9 Gastro-esophageal reflux disease without esophagitis; Z01.818 Encounter for other preprocedural examination
CPT/HCPCS: 36415; 80048; 85610; 85730; 86850; 86900; 86901

== ENCOUNTER 2022-11-14 16:28 | Inpatient (IN) | payer MEDICARE, MEDICAID, SELFPAY ==
[2022-11-05 13:22] VITALS: BMI 38.7
--- NOTE | 2022-11-05 13:27 | PC.NURSE ---
Report to the Outpatient Waiting Room, entrance under the green pavilion located off [facility], at time _0600_ on date 11-14-2022_. Planned Procedure Time: _0730_. Time changes happen often and if your time is changed the preop area will call you the afternoon before. - You and your visitor will be asked to self-screen and do not enter if you have any COVID symptoms. - A mask is optional within the hospital at this time. Patients may have clear liquids (water, carbonated beverages, clear teas, apple juice) until 3 hours prior to surgery with a maximum of 20 ounces. - No food from midnight until time of surgery Take the following medications with a SIP of water the morning of surgery: ___None DO NOT STOP ANY OF YOUR OTHER PRESCRIPTION MEDICATIONS PRIOR TO SURGERY ?EXCEPT THE FOLLOWING Medications to discontinue per physician Cranberry and eye vitamin Date to take last [id number] Please no make-up, nail albanian, hairspray, perfume, deodorant, or body powder the day of surgery. No jewelry (including any body piercings) or valuables the day of surgery, leave them at home. Please take a shower or bath the night before, or the morning of, surgery with an antibacterial soap. Wear comfortable, loose fitting clothing. - Jewelry must be removed prior to entering the operating room. Rings and piercings that are not removed may be cut off. - The hospital will not accept responsibility for valuables. - Please leave all valuables, including medications, at home the day of surgery. If you are going home after surgery, a licensed commercial trailer truck driver must drive you home. - NO public transportation without another adult if you receive anesthesia. - We recommend that an adult stay with you for 24 hours following discharge. - We also recommend that you do not drive, make important decision, drink alcoholic beverages, or take any drugs that were not prescribed by your health care provider for at least 24 hours after your discharge time. Follow any additional instructions given to you from your surgeon. If you or anyone in your household have experienced Covid symptoms in the past week, please notify your surgeon or the nurse liaison at the phone number below for possible testing. Telephone instructions given to _Patient____and asked if any additional questions and then verbalized understanding. Patient advised to call surgeon office or pre surgery nurse liaison [phone] if any additional questions.
[2022-11-14] VITALS (14 sets, daily range): BP systolic 95–136; BP diastolic 47–79; PULSE 96–130; RESP 16–25; TEMP 36.1–37.1; O2SAT 91–100
--- NOTE | ~2022-11-14 | XR_ITS ---
EXAMINATION: XR chest 1V portable INDICATION: Unresponsive TECHNIQUE: Portable AP chest at 1119 hours COMPARISON: 09/24/2022 FINDINGS: There is a small left pleural effusion. There are minimal airspace opacities of the left aly ng base. There is no pneumothorax. The cardiomediastinal silhouette is stable. There is questionable diffuse subcutaneous gas of the chest wall and neck. Changes of left shoulder arthroplasty are noted. IMPRESSION: 1. Small left pleural effusion with minimal left basilar airspace opacity, atelectasis versus pneumon ia. 2. Questionable diffuse subcutaneous gas of the chest wall and neck. Reviewed, dictated and finalized at location B. IMPRESSION: 1. Small left pleural effusion with minimal left basilar airspace opacity, atel ectasis versus pneumonia. 2. Questionable diffuse subcutaneous gas of the chest wall and neck.
--- NOTE | ~2022-11-14 | XR_ITS ---
XR chest 1V portable DATE: 11/18/2022 08:56 INDICATION: Shortness of breath TECHNIQUE: Portable upright AP chest on 11/18/2022 at 0852 hours COMPARISON: 11/16/2022 CT chest 11/16/2022 portable AP chest FINDINGS: There is mild infiltrate or atelectasis is suggested at the lung bases, left greater than r ight. No pulmonary vascular congestion or pneumothorax is noted. Minimal blunting of the left costophrenic angle suggests possible small left pleural effusion. Surgical clips, right upper quadrant, consistent with cholecystectomy. Left humeral head prosthesis. Osteoarthritic change at the right glenohumeral joint. IMPRESSION: Bibasilar infiltrate or atelectasis, left greater right, probable small left pleural effu rachel Reviewed, dictated and finalized at location A. IMPRESSION: Bibasilar infiltrate or atelectasis, left greater right, probable s mall left pleural effusion
--- NOTE | ~2022-11-14 | CT_ITS ---
CT Scan of the Chest without Contrast: Clinical Indication: Subcutaneous emphysema Technique: Contiguous sections were acquired throughout the chest without intravenous contrast. Dose reduction technique was used on this scan by utilizing automated exposure control and iterative recon struction technique. The dose-length product (DLP) was 317.64 mGy-cm. Findings: There is no evidence of any significant mediastinal, hilar or axillary lymphadenopathy. No aortic ane urysm. No pericardial effusion. There are small bilateral pleural effusions with mild bibasilar atelectasis. No pneumothorax. Images through the upper abdomen reveal 2.9 x 2.2 left adrenal lesion. Small hiatal hernia present. T here are several tiny bubbles of free air in the perisplenic region. There is scattered subcutaneous emphysema throughout the subcutaneous soft tissues anteriorly, extend ing to the axillary regions. There is also small amount of pneumomediastinum. Impression: Moderate amount of scattered subcutaneous emphysema predominantly in the anterior subcutaneous soft t issues of the chest. There is also small amount of pneumomediastinum and minimal pneumoperitoneum see n in the upper quadrant. These findings are likely related to recent surgery. Correlate clinically. Small bilateral pleural effusions, left greater than right, with mild bibasilar atelectasis. 2.9 x 2.2 cm left adrenal lesion, mildly hyperdense. Diagnostic concerns include adrenal hemorrhage v ersus other soft tissue mass. Follow-up MR advised to better assess this lesion given its size. Reviewed, dictated and finalized at [facility]. Impression: Moderate amount of scattered subcutaneous emphysema predominantly in the anteri or subcutaneous soft tissues of the chest. There is also small amount of pneumo mediastinum and minimal pneumoperitoneum seen in the upper quadrant. These find ings are likely related to recent surgery. Correlate clinically. Small bilateral pleural effusions, left greater than right, with mild bibasilar atelectasis. 2.9 x 2.2 cm left adrenal lesion, mildly hyperdense. Diagnostic concerns includ e adrenal hemorrhage versus other soft tissue mass. Follow-up MR advised to bet ter assess this lesion given its size.
--- NOTE | ~2022-11-14 | CT_ITS ---
EXAMINATION: CT brain wo con DATE: 11/16/2022 11:55 INDICATION: Unresponsive TECHNIQUE: Computed tomography (CT) of the head was performed without intravenous contrast. Sagittal and coronal reconstructions were performed. The mA was adjusted according to patient size. Iterative reconstruction technique was employed. The dose-length product was 605.33 mGy-cm. COMPARISON: None FINDINGS: No acute infarction or abnormal extra axial fluid collection. Ventricles are normal and symmetric. Re latively symmetric pattern of prominent dystrophic calcifications at the bilateral basal ganglia and cerebellar hemispheres. Smaller regions of less than dense increased attenuation extending along the left thalamus and in the right parietal white matter most likely representing additional dystrophic c alcification although differential would include intraparenchymal hemorrhage. No mass/mass effect. Ch anges of bilateral intraocular lens replacement. Chronic blowout fracture along the anterior medial w all of the right orbit. The orbits, paranasal sinuses and mastoid air cells are normal. IMPRESSION: 1. Prominent bilateral basal ganglia and cerebellar dystrophic calcifications which can be age-relate d findings however the prominent sulci suggests possibility of either primary Fahr's disease or Fahr syndrome which has a wide differential including secondary to multiple endocrinopathies, vasculitis, mitochondrial disorders, infection, permanent side port is been were multiple additional in her to cheryl figueroa. 2. Additional increased densities at the left thalamus and right parietal white matter most likely re presenting additional dystrophic calcific lesions although the density remains within the range of he morrhage which could not be absolutely excluded but in the absence of trauma is considered significan tly less likely. Prior outside imaging would be helpful to establish chronicity of the indeterminate densities which if chronic could be consistent with calcification. Reviewed, dictated and finalized at location A. IMPRESSION: 1. Prominent bilateral basal ganglia and cerebellar dystrophic calcifications w hich can be age-related findings however the prominent sulci suggests possibili ty of either primary Fahr's disease or Fahr syndrome which has a wide different ial including secondary to multiple endocrinopathies, vasculitis, mitochondrial disorders, infection, permanent side port is been were multiple additional in her to disorders. 2. Additional increased densities at the left thalamus and right parietal white matter most likely representing additional dystrophic calcific lesions althoug h the density remains within the range of hemorrhage which could not be absolut tarik excluded but in the absence of trauma is considered significantly less like ly. Prior outside imaging would be helpful to establish chronicity of the indet erminate densities which if chronic could be consistent with calcification.
--- NOTE | ~2022-11-14 | US_ITS ---
EXAMINATION: US venous doppler [facility] DATE: 11/16/2022 14:16 INDICATION: Lower limb edema. TECHNIQUE: Grayscale ultrasound images without and with compression and Doppler ultrasound images of the bilateral lower extremity veins were obtained. COMPARISON: None. FINDINGS: The visualized portions of right common femoral vein, profunda (deep) femoral vein, femoral vein, pop liteal vein, peroneal veins, posterior tibial veins, and greater saphenous vein outflow are patent. The visualized portions of left common femoral vein, profunda femoral vein, femoral vein, popliteal v ein, peroneal veins, posterior tibial veins, and greater saphenous vein outflow are patent. IMPRESSION: 1. No deep venous thrombosis. Reviewed, dictated and finalized at location E.
--- NOTE | ~2022-11-14 | CT_ITS ---
EXAMINATION: CT brain wo con DATE: 11/17/2022 14:01 INDICATION: Abnormal head CT. Intracranial hemorrhage. TECHNIQUE: Computed tomography (CT) of the head was performed without intravenous contrast. The mA wa s adjusted according to patient size. Iterative reconstruction technique was employed. The dose-lengt h product was 605.33 mGy-cm. COMPARISON: Head CT 11/16/2022 FINDINGS: There is no intracranial hemorrhage, acute infarction, or abnormal intracranial mass lesion . There are dystrophic calcifications involving the bilateral cerebellum, bilateral basal ganglia, th gomez, and right parietal deep white matter. The ventricles are normal in size. The paranasal sinuses are clear. There are likely changes of ocular lens replacement surgeries. The mastoid air cells are normal. IMPRESSION: 1. No acute intracranial pathology. 2. Extensive dystrophic calcifications in the brain. Reviewed, dictated and finalized at location E.
--- NOTE | ~2022-11-14 | MR_ITS ---
EXAMINATION: MR abdomen wo con DATE: 11/18/2022 07:47 INDICATION: Adrenal mass. TECHNIQUE: Magnetic resonance imaging (MRI) of the abdomen was performed without intravenous contrast . COMPARISON: Chest CT 11/16/2022, abdomen MRI 03/03/2014 FINDINGS: There are small pleural effusions. There is a 2.9 cm mass in left hepatic lobe that demonstrates incr eased T2-weighted signal intensity, decreased from 3.5 cm on 03/03/2014, likely a hemangioma or focal nodular hyperplasia. The gallbladder is absent. There is mild intrahepatic and extrahepatic biliary duct dilatation, stable from 03/03/2014. There are 2 cysts in the spleen measuring up to 14 mm. The p ancreas and right adrenal gland are normal. There is a 2.8 cm mass in left adrenal gland that demonst rates decreased signal on in-phase imaging suggesting it contains blood products. There are cysts in the kidneys measuring up to 13 mm on the left. There are no dilated loops of bowel. There are changes of fundoplication of the stomach. There are no pathologically enlarged lymph nodes. There is no free intraperitoneal fluid. IMPRESSION: 1. 2.8 cm mass in left adrenal gland containing blood products, new from 03/03/14, most likely a john coretta. Abdomen MRI without and with contrast is recommended in 3 months to exclude malignancy. 2. Small pleural effusions. Reviewed, dictated and finalized at location E. IMPRESSION: 1. 2.8 cm mass in left adrenal gland containing blood products, new from , most likely a hematoma. Abdomen MRI without and with contrast is recommende d in 3 months to exclude malignancy. 2. Small pleural effusions.
[2022-11-14] MEDS: LACTATED RINGERS 1,000 ML 30 ML IV CONT ×2 (06:18→09:42)
--- NOTE | 2022-11-14 06:45 | WPDANESEPPF ---
Anes - Initial Pre Proc Eval Procedure: Operation Date: 11/14/22 07:30 Proposed Procedures p Laparoscopic Avery Fundoplication - Cesar Mathews MD Date/Time: 11/14/22 06:45 Surgeon: Cesar Mathews MD Pre Op Diagnosis: gerd Patient Data Age: 52 Gender: F Height: 1.52 m Weight: 91.3 kg Allergies Allergy/AdvReac Type Severity Reaction Status Date / Time Sulfa (Sulfonamide Allergy Unknown Rash Verified 11/14/22 06:09 Antibiotics) Home Medications Medication Instructions Recorded Confirmed Type famotidine 40 mg tablet See Rx Instructions .Route 03/09/22 11/14/22 Rx .COMPLEX #100 tabs atorvastatin 40 mg tablet See Rx Instructions .Route 03/15/22 11/14/22 Rx .COMPLEX #100 tabs vit C 250 mg-vit E 90 mg-zinc 40 1 tablet PO BID 04/09/22 11/14/22 History mg-copper 1 [id number]-[id number] capsule (PreserVision AREDS-2) lisinopril 20 See Rx Instructions .Route 06/28/22 11/14/22 Rx mg-hydrochlorothiazide 25 mg tablet .COMPLEX #100 tabs cranberry 1,000 mg capsule 1,000 mg PO DAILY 09/24/22 11/14/22 History diphenhydramine 25 2 tablet PO HS PRN PAIN/INSOMNIA 09/24/22 11/05/22 History mg-acetaminophen 500 mg tablet (Tylenol PM Extra Strength) pantoprazole 40 mg tablet,delayed See Rx Instructions .Route 10/02/22 11/14/22 Rx release .COMPLEX #90 tabs Patient hx anesthesia problems: none Family hx anesthesia problems: none Results Review: All pre-operative results and documents have been reviewed as part of the pre-operative evaluation. [facility] Past Medical History Medical History Depression GERD (gastroesophageal reflux disease) Hiatal hernia HTN (hypertension) Hyperlipidemia Hypocalcemia Hypokalemia Hypothyroidism Osteoarthritis Surgical History Surgical History History of shoulder surgery (~07/23/18) Lt - Subscap Tendon Repair History of total replacement of left shoulder joint History of total shoulder replacement (~06/24/18) Lt Hx of cholecystectomy Hx of colonoscopy Hx of total knee replacement Right 2014 Left 2015 Family History Family History Sister Family history of migraine headaches Mother Hypertension Other Heart disease Skin cancer Social History Social History Smoking status: Never smoker Alcohol intake: current Alcohol use details: Occasional use Substance use: never Substance use type: does not use Lack of Transportation: No Lack of Food: Never True Current Housing: I Have Housing Concerned About Future Housing: No Difficulty Paying Gas/Electric Bills: YES Difficulty Paying for Meds: No Currently Unemployed: No Education: High School Diploma/GED Difficulty w/ Childcare or Family Care: No Living arrangements: with family Occupation/Education: other Additional occupation/education comments: Disabled Gender identity (if verbalized by the patient): Female Spiritual care concerns: No Anes - Eval Final PreProcedure Day of Procedure 11/14/22 06:45 Patient weight: obese Heart: regular rate and rhythm Lungs: clear to auscultation Airway: Mallampati scale class III and special considerations poor opening Neurological: alert and oriented Last oral intake: >/= 8 hours ASA classification: III Emergent: no Anesthetic plan: proceed Anesthesia type and monitoring: general ETT and standard monitoring Results Review: All pre-operative results and documents have been reviewed as part of the pre-operative evaluation. Informed Consent: The patient's anesthetic plan and its attendant risks and benefits were discussed with the patient/family/POA. Questions were solicited and answers provided to the satisfaction of the patient/family/POA.
--- NOTE | 2022-11-14 07:07 | WPDHPUPDATE1 ---
History and Physical Update Update Date/Time: 11/14/22 07:07 History and Physical has been reviewed, including an updated exam of the patient. There are NO changes in the patient's condition. Risks, benefits, and alternatives have been discussed and questions answered. Patient agrees to proceed with procedure.
[2022-11-14] MEDS: ceFAZolin 2 GM/D5W 50 ML 2 GM/50 ML BAG IVPB (07:19)
--- NOTE | 2022-11-14 09:29 | SUR.OPER ---
100mL clear yellow urine drained from baker bag in OR at 0920
--- NOTE | 2022-11-14 09:49 | W.PM.PROC2 ---
Procedure Note - Detailed Date of Procedure 11/14/22 Pre-op Diagnosis gerd, Carrillo ulcer Post-op Diagnosis Same Procedure Performed Laparoscopic Avery fundoplication Surgeon Cesar Mathews MD Gambling Box Person Geno LAZO Anesthesia General and Local (0.25% Marcaine with epinephrine) Indications Patient is a 52-year-old woman who has had chronic heartburn and reflux symptoms. In July of 2021 she had an EGD which did not show esophagitis but did show a Carrillo ulcer. She has been taking Protonix in the morning and Pepcid in the evening but still has regurgitation and heartburn symptoms. She had esophageal manometry which was normal. Her pH testing was also performed and this was markedly abnormal with a DeMeester score of 37. She has recalcitrant gastroesophageal reflux disease which is very symptomatic. After thorough discussion, she is taken to surgery now for laparoscopic Avery fundoplication. Findings She had a relatively small hiatal hernia consistent with the EGD report of only about 4 cm. No other significant findings were noted. Description of Procedure Patient was taken to surgery and induced into general anesthesia. The abdomen is prepped and draped. The patient had the 1st trocar placed in left subcostal position. Local was infiltrated and a skin incision made. The varies needle was introduced insufflation was carried out. A 10 11 port was been placed in the left subcostal position somewhat laterally. With the camera in this position we then placed the Hakeem retractor in the epigastric site. Three more 5 mm ports were placed in the usual position. Patient was placed in reverse Trendelenburg. We then placed some traction on the stomach and expose the hepato gastric ligament. This was avascular and was divided with the LigaSure. Essentially all the dissection was performed with the LigaSure. We then freed the right mariah from the adhesions to the hiatal hernia. I was able to enter the mediastinum in this manner. I took down some adhesions to the esophagus and mobilized the esophagus posteriorly. I identified the posterior mariah and dissected the distal portion of this as well. We then exposed the anterior aspect of the esophagus and freed adhesions to the anterior most aspect of the mariah from the esophagus. Esophagus was then mobilized from the anterior right and posterior areas in the mediastinum. We then flipped the stomach so that it was anterior and place traction on the greater omentum in the upper body of the stomach. I used the LigaSure to gain access to the lesser sac. I divided the greater omentum from the stomach freeing it on towards the esophageal hiatus. The omentum came off easily. At the hiatus, we exposed both the posterior and left side of the esophagus and dissected any residual adhesions. There was no bleeding with this. I then continued dissection into the mediastinum freeing up the distal esophagus in the posterior and left aspects. It was not a large hiatal hernia and really this was all the dissection necessary as we had more than 4 cm of intra-abdominal esophagus at this point. I did turn the stomach back and look into the mediastinum again from the medial side of the esophagus. No other abnormalities were appreciated. We then placed a Shelbi drain around the lower most aspect of the esophagus. The 2 ends were tied to 1 another with a Vicryl endoloop. With traction on the distal esophagus I then closed the esophageal hiatus with interrupted sutures of 0 Ethibond using the Endo Stitch. When this was completed, I then brought up the fundus of the stomach and used the greater curvature where we had divided the omentum to pass the wrap under the distal esophagus. I grasped the 2 ends of the wrap and using the shoe shine technique checked to make sure there was no spiraling of the wrap. I then secured the wrap with a noncrushing bowel clamp. Serial bougie is were then passed through the esophagus b
--- NOTE | 2022-11-14 10:39 | SUR.PHASEI ---
Dr. Head aware of Ectopy in recovery. No treatment at this time.
--- NOTE | 2022-11-14 11:15 | ADMGEN ---
This patient, Lorena Jensen, was admitted to Medical Room 244-. Patient/family oriented to hospital policies and general routines including ID bracelet, bed and alarms, visiting hours, pain management, procedures, bathroom and other care routines, personal items, smoking policy, room service/diet, and visiting hours. Information on how to activate the Rapid Response Team has been discussed. Patient/Family are encouraged to report perceived risks to care and to ask questions if they do not understand what they are told or what they should do.
[2022-11-14] MEDS: MORPHINE SULFATE (*CRX) 2 MG/ML INJ IV PUSH (14:06)
[2022-11-14] MEDS: LACTATED RINGERS 1,000 ML 100 ML IV CONT (14:11)
[2022-11-14] MEDS: ATORVASTATIN 40 MG TABLET BY MOUTH (17:13)
[2022-11-14] MEDS: PANTOPRAZOLE 40 MG TABLET BY MOUTH (17:13)
[2022-11-14] MEDS: HYDROcodone/acetaminophen (*CRX) 5-325 MG TABLET 1 TAB PO (17:13)
[2022-11-14] MEDS: ONDANSETRON INJ 4 MG/2 ML VIAL IV PUSH (17:34)
[2022-11-15 00:45] VITALS: BP 136/64; PULSE 123; RESP 18; TEMP 36.8; O2SAT 94
[2022-11-15] MEDS: HYDROcodone/acetaminophen (*CRX) 5-325 MG TABLET 1 TAB PO ×4 (01:04→22:29)
[2022-11-15 04:50] VITALS: BP 110/57; PULSE 115; RESP 18; TEMP 36.9; O2SAT 93
[2022-11-15 05:41] LABS: Hematocrit 34.5 % (37.0-47.0); Hemoglobin 10.8 g/dL (12.0-15.0); Mean Corpuscular HGB Conc 31.3 g/dl (32-36); Mean Corpuscular Hemoglobin 26.7 pg (26-34); Mean Corpuscular Volume 85.2 fl (80-100); Mean Platelet Volume 10.8 fl (7.4-10.4); Platelet Count Result 275 k/mm3 (150-375); Red Blood Count 4.05 M/mm3 (4.2-5.4); White Blood Count 14.1 K/mm3 (4.5-10.0)
[2022-11-15 05:51] LABS: Anion Gap 4 mmol/L (8-16); Blood Urea Nitrogen 26 mg/dL (7-17); Calcium 8.5 mg/dL (8.4-10.2); Carbon Dioxide 31 mmol/L (22-30); Chloride 102 mmol/L (98-107); Estimated CRCL calculation 49 ml/min; Estimated Glomerular Filt Rate 47; Glucose 125 mg/dL (65-110); Potassium 4.2 mmol/L (3.4-5.0); Sodium 137 mmol/L (137-145)
--- NOTE | 2022-11-15 07:58 | PM.PNGS ---
Progress Note: A&P Assessment and Plan (1) GERD (gastroesophageal reflux disease): Qualifiers: Esophagitis presence: without esophagitis Qualified Code(s): K21.9 - Gastro-esophageal reflux disease without esophagitis Code(s): K21.9 - Gastro-esophageal reflux disease without esophagitis Status: Chronic Assessment and Plan: Tachycardic this morning but otherwise looks good postop day 1. Status post laparoscopic Avery fundoplication. Pain is better but still or requiring significant analgesics some of them parenterally. Continue full liquids with in live supplement t.i.d.. Recheck labs tomorrow. Encouraged to drink liquids slowly. Doing okay so far. No symptoms of dysphagia as yet but I do expect them to develop as is typical following the surgery. 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 Should resolve with repair if has not already resolved. Subjective Subjective Date/Time Seen: 11/15/22 07:58 Post Op day: 1 Patient reports: feels better, pain is less, no bowel movement and afebrile Interval history: Has not noticed any dysphagia as yet. No heartburn or reflux symptoms. Exam GI: Inspection: non-distended and incision (Dry and healing well) GI Palp: Yes Soft to palpation and Yes Tenderness to palpation present (GI) Objective Data Vital Signs Vital Signs: Vital Signs - 24 hr 11/14/22 09:42 11/14/22 09:55 11/14/22 10:10 Temperature 36.3 C L Pulse Rate 108 H 103 H 109 H Respiratory Rate 20 19 16 Blood Pressure 105/59 L 95/50 L 95/61 L Pulse Oximetry 99 100 98 Oxygen Delivery Simple Face Mask Simple Face Mask Room Air Oxygen Flow Rate 6 6 11/14/22 10:25 11/14/22 10:40 11/14/22 10:55 Temperature Pulse Rate 113 H 120 H 106 H Respiratory Rate 21 H 25 H 19 Blood Pressure 107/49 L 111/66 112/61 Pulse Oximetry 96 96 99 Oxygen Delivery Room Air Room Air Room Air Oxygen Flow Rate 11/14/22 11:20 11/14/22 11:35 11/14/22 12:05 Temperature 36.4 C 36.4 C 36.6 C Pulse Rate 100 103 H 102 H Respiratory Rate 16 16 18 Blood Pressure 121/79 124/64 136/72 Pulse Oximetry 97 99 98 Oxygen Delivery Oxygen Flow Rate 11/14/22 13:07 11/14/22 14:45 11/14/22 18:22 Temperature 36.4 C 36.4 C 36.9 C Pulse Rate 100 96 112 H Respiratory Rate 18 18 18 Blood Pressure 128/72 127/78 130/61 Pulse Oximetry 99 99 96 Oxygen Delivery Oxygen Flow Rate 11/14/22 20:50 11/15/22 00:45 11/14/22 20:00 Temperature 37.1 C 36.8 C Pulse Rate 130 H 123 H Respiratory Rate 18 18 Blood Pressure 120/47 L 136/64 Pulse Oximetry 91 94 Oxygen Delivery Room Air Oxygen Flow Rate 11/15/22 04:50 Temperature 36.9 C Pulse Rate 115 H Respiratory Rate 18 Blood Pressure 110/57 L Pulse Oximetry 93 Oxygen Delivery Oxygen Flow Rate Intake/Output Intake/Output: Intake & Output 11/12/22 11/13/22 11/14/22 11/15/22 23:59 23:59 23:59 23:59 Intake Total 410 Output Total 500 100 Balance -90 -100 Meds/Results Medications: Active Medications Generic Name Dose Route Start Last Admin Trade Name Freq PRN Reason Stop Dose Admin Acetaminophen 500 mg 11/14/22 11:05 Acetaminophen 500 Mg Tablet PO Q6H PRN Mild Pain (1-3) or Fever Hydrocodone Bitart/Acetaminophen 1 tab 11/14/22 11:05 11/15/22 01:04 Hydrocodone/Acetaminophen (*Crx) 5-325 Mg Tablet PO 1 tab Q4H PRN Administration Pain Rated 4-6 Atorvastatin Calcium 40 mg 11/14/22 11:05 11/14/22 17:13 Atorvastatin 40 Mg Tablet BY MOUTH 40 mg DAILY ISAIAH Administration Enoxaparin Sodium 40 mg 11/15/22 09:00 Enoxaparin 40 Mg/0.4 Ml Syringe SUB-Q DAILY ISAIAH Mor
[2022-11-15 08:50] VITALS: BP 137/90; PULSE 112; RESP 20; TEMP 36.4; O2SAT 94
[2022-11-15] MEDS: ATORVASTATIN 40 MG TABLET BY MOUTH (09:34)
[2022-11-15] MEDS: ENOXAPARIN 40 MG/0.4 ML SYRINGE SUB-Q (09:34)
[2022-11-15] MEDS: PANTOPRAZOLE 40 MG TABLET BY MOUTH (09:34)
[2022-11-15] MEDS: OPTI-GEN TAB 1 TABLET PO ×2 (09:35→16:20)
[2022-11-15 09:39] VITALS: RESP 18; O2SAT 94
[2022-11-15] MEDS: polyethylene glycoL 3350 17 GM POWD.PACK PO (09:39)
[2022-11-15] MEDS: ONDANSETRON INJ 4 MG/2 ML VIAL IV PUSH (09:54)
[2022-11-15 12:50] VITALS: BP 132/87; PULSE 118; RESP 20; TEMP 36.6; O2SAT 97
--- NOTE | 2022-11-15 13:56 | WPDANESPN ---
Anes - Prog Note Post-Op Date/Time: 11/15/22 13:56 Vital Signs: Last Vital Signs Temp 36.4 C 11/15/22 08:50 Pulse 112 H 11/15/22 08:50 Resp 18 11/15/22 09:39 BP 137/90 11/15/22 08:50 Pulse Ox 94 11/15/22 09:39 O2 Del Method Room Air 11/15/22 09:39 O2 Flow Rate 6 11/14/22 09:55 Pain Score (VAS): 4 I/O: Intake & Output 11/14/22 11/15/22 11/15/22 23:59 07:59 15:59 Intake Total 270 120 Output Total 250 100 Balance 20 -100 120 Laboratory Tests 11/15/22 04:59 11/15/22 04:59 11/15/22 04:59 WBC 14.1 H RBC 4.05 L Hgb 10.8 L Hct 34.5 L MCV 85.2 MCH 26.7 MCHC 31.3 L RDW 13.0 Plt Count 275 MPV 10.8 H Sodium 137 Potassium 4.2 Chloride 102 Carbon Dioxide 31 H Anion Gap 4 L BUN 26 H Creatinine 1.20 H Estim Creat Clear Calc 49 Estimated GFR 47 L Glucose 125 H Calcium 8.5 Patient Feedback: Patient satisfied with anesthetic care.
[2022-11-15 20:51] VITALS: BP 105/63; PULSE 120; RESP 18; TEMP 36.9; O2SAT 90
[2022-11-16] VITALS (10 sets, daily range): BP systolic 101–120; BP diastolic 57–79; PULSE 94–120; RESP 16–20; TEMP 35.9–37.3; O2SAT 91–100
[2022-11-16 05:32] LABS: Hematocrit 35.8 % (37.0-47.0); Hemoglobin 11.2 g/dL (12.0-15.0); Mean Corpuscular HGB Conc 31.3 g/dl (32-36); Mean Corpuscular Hemoglobin 27.3 pg (26-34); Mean Corpuscular Volume 87.3 fl (80-100); Mean Platelet Volume 10.9 fl (7.4-10.4); Platelet Count Result 260 k/mm3 (150-375); Red Cell Distribution Width 12.8 % (11.5-14.5)
[2022-11-16 05:58] LABS: Anion Gap 5 mmol/L (8-16); Blood Urea Nitrogen 19 mg/dL (7-17); Calcium 8.5 mg/dL (8.4-10.2); Carbon Dioxide 35 mmol/L (22-30); Chloride 98 mmol/L (98-107); Estimated CRCL calculation 54 ml/min; Estimated Glomerular Filt Rate 52; Glucose 126 mg/dL (65-110); Potassium 4.5 mmol/L (3.4-5.0); Sodium 138 mmol/L (137-145)
--- NOTE | 2022-11-16 07:15 | ECG_ITS ---
Measurements Intervals Potter Rate: 112 P: 32 ND: 112 QRS: 3 QRSD: 77 T: -2 QT: 290 QTc: 397 Interpretive Statements SINUS TACHYCARDIA LOW QRS VOLTAGE IN PRECORDIAL LEADS CONSIDER INFERIOR INFARCT, AGE INDETERMINATE BASELINE WANDER- I, II, AVR, AVL, AVF, V1-V6 ABNORMAL ECG COMPARED TO ECG 09/24/2022 10:32:13 SINUS TACHYCARDIA NOW PRESENT Electronically Signed On 11-16-2022 11:12:02 CDT by Delvin Whitehead D.O.
--- NOTE | 2022-11-16 07:17 | PM.PNGS ---
Progress Note: A&P Assessment and Plan (1) Tachycardia with heart rate 100-120 beats per minute: Code(s): R00.0 - Tachycardia, unspecified Status: Acute Assessment and Plan: Reviewing her previous EKGs, she seems to run normal heart rate of around 90-100. Postoperatively, she has been 110-120 frequently. Will get EKG. Probably sinus tach. (2) GERD (gastroesophageal reflux disease): Qualifiers: Esophagitis presence: without esophagitis Qualified Code(s): K21.9 - Gastro-esophageal reflux disease without esophagitis Code(s): K21.9 - Gastro-esophageal reflux disease without esophagitis Status: Chronic Assessment and Plan: With Carrillo ulcer. Still on Protonix and will continue for at least 2 if not 4 weeks postoperatively. (3) History of Avery fundoplication: Code(s): Z98.890 - Other specified postprocedural states Status: Acute Assessment and Plan: Tachycardic and still not eating very much. Will recheck her later today. May need to stay another day. (4) CKD (chronic kidney disease) stage 3, GFR 30-59 ml/min: Qualifiers: Chronic kidney disease stage 3 subtype: stage 3a (GFR 45-59) Qualified Code(s): N18.31 - Chronic kidney disease, stage 3a Code(s): N18.30 - Chronic kidney disease, stage 3 unspecified Status: Chronic Assessment and Plan: Renal function at baseline if not a little better. Subjective Subjective Date/Time Seen: 11/16/22 07:17 Post Op day: 2 Patient reports: no new complaints, still having pain and afebrile Interval history: Patient very sleepy this morning. Not very talkative. No particular complaints however. Exam Const: General: comfortable, no acute distress and lethargic Nutritional Appearance: obese GI: Inspection: non-distended, incision (Dry and healing well) and obesity GI Palp: Yes Soft to palpation, Yes Tenderness to palpation present (GI), No Guarding due to palpation present (GI) and No Rebound tenderness present Extrem: General: no calf tenderness and no edema Objective Data Vital Signs Vital Signs: Vital Signs - 24 hr 11/15/22 09:39 11/15/22 08:50 11/15/22 12:50 Temperature 36.4 C 36.6 C Pulse Rate 112 H 118 H Respiratory Rate 18 20 20 Blood Pressure 137/90 132/87 Pulse Oximetry 94 94 97 Oxygen Delivery Room Air 11/15/22 20:51 11/15/22 20:00 11/16/22 05:24 Temperature 36.9 C 37.2 C Pulse Rate 120 H 120 H Respiratory Rate 18 18 Blood Pressure 105/63 112/60 Pulse Oximetry 90 91 Oxygen Delivery Room Air Persistent tachycardia heart rate 120 Intake/Output Intake/Output: Intake & Output 11/13/22 11/14/22 11/15/22 11/16/22 23:59 23:59 23:59 23:59 Intake Total 410 730 250 Output Total 500 400 Balance -90 330 250 Only took in 720 cc orally yesterday. Not really eating adequately Meds/Results Medications: Active Medications Generic Name Dose Route Start Last Admin Trade Name Freq PRN Reason Stop Dose Admin Acetaminophen 500 mg 11/14/22 11:05 Acetaminophen 500 Mg Tablet PO Q6H PRN Mild Pain (1-3) or Fever Hydrocodone Bitart/Acetaminophen 1 tab 11/14/22 11:05 11/15/22 22:29 Hydrocodone/Acetaminophen (*Crx) 5-325 Mg Tablet PO 1 tab Q4H PRN Administration Pain Rated 4-6 Atorvastatin Calcium 40 mg 11/14/22 11:05 11/15/22 09:34 Atorvastatin 40 Mg Tablet BY MOUTH 40 mg DAILY ISAIAH Administration Enoxaparin Sodium 40 mg 11/15/22 09:00 11/15/22 09:34 Enoxaparin 40 Mg/0.4 Ml Syringe SUB-Q 40 mg DAILY ISAIAH Administration Morphine Sulfate 2 mg 11/14/22 11:05 11/14/22 14:06 Morphine Sulfate (*Crx) 2 Mg/Ml Inj IV PUSH 2 mg Q2H PRN Administration Pain Rated 7-10 Multivitamins/Minerals 1 tablet 11/14/22 17:00 11/15/22 16:20 Opti-Gen Tab PO 12/14/22 16:59 1 tablet BID ISAIAH Administration Naloxone HCl 0.1 mg 11/14/22 11:05 Naloxone Hcl 0.4 Mg/Ml Vial IV PUSH Q2M P
[2022-11-16 10:09] LABS: Glucose Point of Care 173 mg/dl (65-105)
[2022-11-16] MEDS: NALOXONE HCL 0.4 MG/ML VIAL IV PUSH (10:14)
[2022-11-16 10:17] LABS: Alveolar/Arterial O2 Gradient 496.1 mmHg; Base Excess ABG 3.2 mEq/l (+/-2.0); Fractional Inspired Oxygen 100 %; HCO3 ABG 30.9 mEq/l (22.0-26.0); Oxygen Content ABG 17.2 %vol (16.0-22.0); Oxygen Saturation ABG 98.8 % (95.0-100.0); Oxyhemoglobin 97.2 % THb (90.0-100.0); PO2 ABG 154.4 mmHg (80.0-100.0); PO2 FiO2 Ratio Arterial Blood 1.54 %; Total Hemoglobin 12.4 g/dL (12.0-18.0); pH ABG 7.312 (7.350-7.450)
[2022-11-16 10:25] LABS: Device NON-REBREATHER MASK; Modified Allen's Test Pass; PCO2 ABG 62.5 mmHg (35.0-45.0); Site Drawn LEFT RADIAL
[2022-11-16 10:26] LABS: Hematocrit 36.9 % (37.0-47.0); Hemoglobin 11.3 g/dL (12.0-15.0); Mean Corpuscular HGB Conc 30.6 g/dl (32-36); Mean Corpuscular Hemoglobin 26.9 pg (26-34); Mean Corpuscular Volume 87.9 fl (80-100); Mean Platelet Volume 10.2 fl (7.4-10.4); Platelet Count Result 233 k/mm3 (150-375); White Blood Count 11.4 K/mm3 (4.5-10.0)
--- NOTE | 2022-11-16 10:29 | PC.NURSE ---
Voicemail left with spouse regarding transfer in level of care.
--- NOTE | 2022-11-16 10:41 | PC.NURSE ---
Spoke with regarding change in level of care.
--- NOTE | 2022-11-16 10:48 | PC.NURSE ---
This patient, Lorena Jensen, was received from JUMANA Segura on 11/16/22 at 1048. Patient/family oriented to unit policies and routines
--- NOTE | 2022-11-16 11:56 | PM.IMCN ---
Assessment and Plan Assessment and plan (1) Altered mental status: Code(s): R41.82 - Altered mental status, unspecified Status: Acute Assessment and Plan: ABG showed hypercapnia, will initiate BIPAP if still elevated on the recheck Chest x-ray did show subcutaneous gas in the chest wall, will obtain CT chest, will avoid contrast for now due to her kidney disease Check Dopplers for now, consider CTA (2) History of Avery fundoplication: Code(s): Z98.890 - Other specified postprocedural states Status: Acute Assessment and Plan: Postop day 2 from the procedure which was done November 14, 2022 Management per general surgery (3) Stage 3a chronic kidney disease: Code(s): N18.31 - Chronic kidney disease, stage 3a Status: Acute Assessment and Plan: Creatinine appears to be at baseline, monitor (4) Secondary renal hyperparathyroidism: Code(s): N25.81 - Secondary hyperparathyroidism of renal origin Status: Acute (5) Benign hypertension with chronic kidney disease: Code(s): I12.9 - Hypertensive chronic kidney disease with stage 1 through stage 4 chronic kidney disease, or unspecified chronic kidney disease Status: Chronic (6) HTN (hypertension): Code(s): I10 - Essential (primary) hypertension Status: Acute Assessment and Plan: Blood pressures reviewed 11/16 (7) Hypothyroidism: Code(s): E03.9 - Hypothyroidism, unspecified Status: Acute Assessment and Plan: Check TSH (8) Hyperlipidemia: Code(s): E78.5 - Hyperlipidemia, unspecified Status: Acute Plan DVT prophylaxis with SCDs GI prophylaxis not indicated Code status full code HPI Data of Consult Consult date: 11/16/22 Requesting Physician: Cesar Mathews MD Primary Care Provider: David Gutierrez DO Consult Narrative Reason for consult: Rapid response Narrative: Lorena Jensen is a 52 year old female with past medical history significant for hypertension, hyperlipidemia, hypothyroidism as well as GERD presented for laparoscopic Avery fundoplication by General surgery on November 14, 2022. She had some elevated creatinine and therefore they decided to keep her for observation. This morning, November 16, 2022, a rapid response was called as the patient was less responsive than normal. Narcan was given with some response. However, the patient remains less talkative and somewhat altered. Chest x-ray and stat head CT were ordered and are pending. Concern is for possible CVA. Review of Systems Review of Systems: ROS unobtainable: Yes unobtainable due to mental status PMFSH Past Medical History Medical History Depression GERD (gastroesophageal reflux disease) Hiatal hernia HTN (hypertension) Hyperlipidemia Hypocalcemia Hypokalemia Hypothyroidism Osteoarthritis Surgical History Surgical History History of shoulder surgery (~07/23/18) Lt - Subscap Tendon Repair History of total replacement of left shoulder joint History of total shoulder replacement (~06/24/18) Lt Hx of cholecystectomy Hx of colonoscopy Hx of total knee replacement Right 2014 Left 2015 Family History Family History Sister Family history of migraine headaches Mother Hypertension Other Heart disease Skin cancer Social History Social History Smoking status: Never smoker Alcohol intake: current Alcohol use details: Occasional use Substance use: never Substance use type: does not use Lack of Transportation: No Lack of Food: Never True Current Housing: I Have Housing Concerned About Future Housing: No Difficulty Paying Gas/Electric Bills: YES Difficulty Paying for Meds: No Currently Unemployed: No Education: [employer]
[2022-11-16 12:40] LABS: Alveolar/Arterial O2 Gradient 89.2 mmHg; Base Excess ABG 4.8 mEq/l (+/-2.0); Fractional Inspired Oxygen 32 %; HCO3 ABG 29.4 mEq/l (22.0-26.0); Oxygen Content ABG 16.3 %vol (16.0-22.0); Oxyhemoglobin 95.8 % THb (90.0-100.0); PCO2 ABG 43.8 mmHg (35.0-45.0); PO2 ABG 87.7 mmHg (80.0-100.0); PO2 FiO2 Ratio Arterial Blood 2.74 %; pH ABG 7.445 (7.350-7.450)
[2022-11-16 12:42] LABS: Device NASAL CANNULA; Modified Allen's Test Pass; Site Drawn RIGHT RADIAL
--- NOTE | 2022-11-16 12:46 | PCCCNOTE ---
On 11/16/22, the student, [Luiza Villanueva], provided care and completed [facility] documentation on this patient. I have reviewed the student's documentation and agree with the findings.
[2022-11-16 12:55] LABS: Troponin I 0.234 ng/mL (0.000-0.034)
[2022-11-16 13:15] LABS: Thyroid Stimulating Hormone 0.848 uIU/mL (0.465-4.680)
[2022-11-16] MEDS: OPTI-GEN TAB 1 TABLET PO (13:30)
[2022-11-16] MEDS: ACETAMINOPHEN 500 MG TABLET PO ×2 (13:30→20:37)
[2022-11-16] MEDS: polyethylene glycoL 3350 17 GM POWD.PACK PO (13:30)
[2022-11-16] MEDS: PANTOPRAZOLE 40 MG TABLET BY MOUTH (13:30)
[2022-11-16] MEDS: ATORVASTATIN 40 MG TABLET BY MOUTH (13:30)
[2022-11-17] VITALS (9 sets, daily range): BP systolic 111–123; BP diastolic 65–97; PULSE 74–99; RESP 18–20; TEMP 36.6–37.6; O2SAT 95–100
[2022-11-17 04:51] LABS: Anion Gap 2 mmol/L (8-16); Blood Urea Nitrogen 20 mg/dL (7-17); Calcium 8.1 mg/dL (8.4-10.2); Carbon Dioxide 39 mmol/L (22-30); Chloride 95 mmol/L (98-107); Estimated CRCL calculation 54 ml/min; Estimated Glomerular Filt Rate 52; Glucose 107 mg/dL (65-110); Sodium 136 mmol/L (137-145)
[2022-11-17 05:27] LABS: Basophils Absolute Auto 0.1 K/mm3 (0.0-0.1); Basophils Percent Auto 0.4 % (0.2-1.2); Eosinophils Absolute Auto 0.1 K/mm3 (0-0.3); Eosinophils Percent Auto 1.2 % (0-4.4); Hematocrit 32.5 % (37.0-47.0); Hemoglobin 10.2 g/dL (12.0-15.0); Immature Granulocyte Absolute 0.05 K/mm3 (0.00-0.031); Immature Granulocyte Percent A 0.4 % (0-0.5); Lymphocytes Absolute Auto 2.75 K/mm3 (0.9-3.2); Lymphocytes Percent Auto 23.7 % (18.3-44.2); Mean Corpuscular HGB Conc 31.4 g/dl (32-36); Mean Corpuscular Hemoglobin 26.8 pg (26-34); Mean Corpuscular Volume 85.3 fl (80-100); Monocytes Absolute Auto 1.1 K/mm3 (0.1-0.6); Monocytes Percent Auto 9.7 % (2.6-8.5); Neutrophils Absolute Auto 7.5 K/mm3 (1.3-6.7); Neutrophils Percent Auto 64.6 % (45.5-73.1); Platelet Count Result 217 k/mm3 (150-375); Red Blood Count 3.81 M/mm3 (4.2-5.4); Red Cell Distribution Width 12.4 % (11.5-14.5); White Blood Count 11.6 K/mm3 (4.5-10.0)
--- NOTE | 2022-11-17 08:11 | PM.IMPN ---
Progress Note: A&P Assessment and Plan (1) Altered mental status: Code(s): R41.82 - Altered mental status, unspecified Status: Acute Assessment and Plan: 11/16: ABG showed hypercapnia, will initiate BIPAP if still elevated on the recheck Chest x-ray did show subcutaneous gas in the chest wall, will obtain CT chest, will avoid contrast for now due to her kidney disease Check Dopplers for now, consider CTA 11/17: Repeat ABG showed normalized CO2, this was likely secondary to hypoventilation from opiate administration with possible component of OHS, would recommend checking an ApneaLink prior to discharge once off pain medication if still on oxygen vs sleep study outpatient. Dopplers were negative for DVT, do not suspect PE at this time, but still in the differential. Likely component of atelectasis. IS to bedside. Ambulate as able. (2) Abnormal head CT: Code(s): R93.0 - Abnormal findings on diagnostic imaging of skull and head, not elsewhere classified Status: Acute Assessment and Plan: 11/17: Unsure of etiology of abnormal findings on CT head, do not suspect they are contributing to the acute issues at hand, however, will consult neurology to further investigate these findings, if necessary, and attempt to find old records to confirm chronicity. Also, will repeat CT head today 24 hours after initial CTH to confirm hemorrhage not increasing, if present at all (3) Pleural effusion: Code(s): J90 - Pleural effusion, not elsewhere classified Status: Acute Assessment and Plan: 11/17: Chest CT and CXR did show diffuse subcutaneous gas likely secondary to surgery as well as pleural effusion Lasix 40 mg IV x1 (4) Lesion of adrenal gland: Code(s): E27.9 - Disorder of adrenal gland, unspecified Status: Acute Assessment and Plan: Incidental adrenal mass noted, MR recommended to evaluate, this is ordered and pending (5) History of Avery fundoplication: Code(s): Z98.890 - Other specified postprocedural states Status: Acute Assessment and Plan: Postop day 3 from the procedure which was done November 14, 2022 Management per general surgery (6) Stage 3a chronic kidney disease: Code(s): N18.31 - Chronic kidney disease, stage 3a Status: Chronic Assessment and Plan: Creatinine appears to be at baseline, monitor (7) Benign hypertension with chronic kidney disease: Code(s): I12.9 - Hypertensive chronic kidney disease with stage 1 through stage 4 chronic kidney disease, or unspecified chronic kidney disease Status: Chronic (8) HTN (hypertension): Code(s): I10 - Essential (primary) hypertension Status: Acute Assessment and Plan: Blood pressures reviewed 11/17 (9) Hypothyroidism: Code(s): E03.9 - Hypothyroidism, unspecified Status: Acute Assessment and Plan: TSH on the lower side, but wnl, does not appear to be on thyroid replacement hormone? unsure of etiology of this diagnosis? (10) Hyperlipidemia: Code(s): E78.5 - Hyperlipidemia, unspecified Status: Acute Plan DVT prophylaxis with SCDs GI prophylaxis not indicated Code status full code Subjective Date/time seen: 11/17/22 08:11 Interval history: 52-year-old female with history of hypothyroidism, chronic kidney disease, hyperlipidemia, hypertension and GERD presented for Avery fundoplication due to peptic ulcer disease and hospitalist was consulted due to episode of hypoxia with altered mentation, currently being treated for hypercapnia. No overnight events noted. No chest pain or shortness of breath. No nausea, vomiting or diarrhea. No fevers or chills. Review of Systems Review of Systems: 12 point review of systems was assessed and was negative except as noted in the HPI Exam Narrative: General: No acute distress, alert and oriented per baseline HEENT: Atraumatic, normocep
[2022-11-17] MEDS: PANTOPRAZOLE 40 MG TABLET BY MOUTH (08:40)
[2022-11-17] MEDS: OPTI-GEN TAB 1 TABLET PO ×2 (08:40→17:54)
[2022-11-17] MEDS: polyethylene glycoL 3350 17 GM POWD.PACK PO (08:40)
[2022-11-17] MEDS: ATORVASTATIN 40 MG TABLET BY MOUTH (08:41)
[2022-11-17] MEDS: ACETAMINOPHEN 500 MG TABLET PO (08:41)
--- NOTE | 2022-11-17 09:42 | PM.PNGS ---
Progress Note: A&P Assessment and Plan (1) Altered mental status: Code(s): R41.82 - Altered mental status, unspecified Status: Acute Assessment and Plan: Seems to be completely resolved. Patient attributes this to morphine but there is no record of her receiving morphine the night before this occurred. She did get a hydrocodone 5 mg around 10:00 p.m.. She did have a prompt response to Narcan during the rapid response yesterday. Thorough workup otherwise has been negative. Patient is getting MRI of the brain as ordered by hospitalist. Will resume ambulation and transfer her to [facility] floor today. Seems to be resolved. (2) Tachycardia with heart rate 100-120 beats per minute: Code(s): R00.0 - Tachycardia, unspecified Status: Resolved Assessment and Plan: Resolved yesterday (3) History of Avery fundoplication: Code(s): Z98.890 - Other specified postprocedural states Status: Acute Assessment and Plan: No dysphagia. No complaints of reflux. Wounds healing well. Seems to be working as expected. (4) Stage 3a chronic kidney disease: Code(s): N18.31 - Chronic kidney disease, stage 3a Status: Chronic Assessment and Plan: Stable Subjective Subjective Date/Time Seen: 11/17/22 09:42 Post Op day: 3 Patient reports: feels better, pain is less, tolerating liquids well and other (Wants to go home) Review of Systems Review of Systems: All systems reviewed & are unremarkable except as noted in HPI and below (HPI and those items noted below) Constitutional: Constitutional: Denies chills and Denies fever(s) Cardiovascular: Cardiovascular: Denies chest pain, Denies diaphoresis, Denies dyspnea and Denies paroxysmal nocturnal dyspnea Respiratory: Respiratory: Denies chest congestion, Denies cough and Denies dyspnea Gastrointestinal: Gastrointestinal: Denies bloating, Denies dysphagia and Denies nausea Comments: Does not like Ensure Integumentary/Breasts: Skin/Breast: Denies lesions and Denies rash Exam Const: General: comfortable and no acute distress Nutritional Appearance: overweight Orientation/consciousness: patient oriented x3 GI: Inspection: non-distended, incision (Dry and healing) and obesity GI Palp: Yes Soft to palpation, Yes Tenderness to palpation present (GI) (Minimal incisional tenderness), No Guarding due to palpation present (GI) and No Rebound tenderness present Auscultation: normal bowel sounds Neuro: General: patient oriented x3 and no focal motor deficits Extrem: General: no calf tenderness and no edema Psych: Affect: normal affect Insight: Good insight present (Psych) Judgement: Good judgement present (Psych) Objective Data Vital Signs Vital Signs: Vital Signs - 24 hr 11/16/22 09:56 11/16/22 10:50 11/16/22 10:25 Temperature 35.9 C L Pulse Rate 111 H Respiratory Rate 16 Blood Pressure 110/57 L Pulse Oximetry 100 100 Oxygen Delivery Room Air Non-Rebreather Mask Non-Rebreather Mask Oxygen Flow Rate 15 15 11/16/22 12:00 11/16/22 12:00 11/16/22 14:00 Temperature 36.6 C Pulse Rate 111 H 106 H Respiratory Rate 20 Blood Pressure 117/75 Pulse Oximetry 100 98 Oxygen Delivery Nasal Cannula Oxygen Flow Rate 3 11/16/22 16:00 11/16/22 16:00 11/16/22 16:00 Temperature 37.3 C Pulse Rate 102 H 103 H Respiratory Rate 20 Blood Pressure 119/61 Pulse Oximetry 99 95 Oxygen Delivery Room Air Oxygen Flow Rate 11/16/22 12:00 11/16/22 18:00 11/16/22 20:00 Temperature 36.8 C Pulse Rate 103 H 107 H 113 H Respiratory Rate 20 Blood Pressure 101/79 Pulse Oximetry 100 Oxygen Delivery Oxygen Flow Rate 11/16/22 20:00 11/16/22 20:00 11/16/22 23:47 Temperature 36.5 C Pulse Rate 103 H 103 H 94 Respiratory Rate 20 20 Blood Pressure 120/77 Pulse Oximetry 100 98 Oxygen Delivery Room Air Oxygen Flow Rate 11/16/22 22:00 11/17/22 00:00 11/17/22
[2022-11-17] MEDS: FUROSEMIDE INJ 40 MG/4 ML VIAL IV PUSH (10:34)
--- NOTE | 2022-11-17 11:25 | PC.NURSE ---
This patient, Lorena Jensen, was transferred to [facility] on 11/17/22 at 1125. Personal belongings sent with patient. Report given to Teresa DENNEY. Appropriate documentation sent with patient.
--- NOTE | 2022-11-17 11:34 | PC.NURSE ---
This patient, Lorena Jensen, was received from [IMU ] on 11/17/22 at 1134. Patient/family oriented to unit policies and routines Recieved on RA, non-tele, A-O-4 and no pain.
[2022-11-18] VITALS: BP 122/85; PULSE 95; RESP 18; TEMP 37.1; O2SAT 95
[2022-11-18 04:00] VITALS: BP 115/73; PULSE 92; RESP 18; TEMP 37.3; O2SAT 93
[2022-11-18 08:00] VITALS: PULSE 92; RESP 18; O2SAT 93
[2022-11-18] MEDS: ATORVASTATIN 40 MG TABLET BY MOUTH (08:34)
[2022-11-18] MEDS: ENOXAPARIN 40 MG/0.4 ML SYRINGE SUB-Q (08:34)
[2022-11-18] MEDS: OPTI-GEN TAB 1 TABLET PO (08:34)
[2022-11-18] MEDS: PANTOPRAZOLE 40 MG TABLET BY MOUTH (08:34)
[2022-11-18] MEDS: polyethylene glycoL 3350 17 GM POWD.PACK PO (08:40)
--- NOTE | 2022-11-18 08:43 | PM.IMPN ---
Progress Note: A&P Assessment and Plan (1) Altered mental status: Code(s): R41.82 - Altered mental status, unspecified Status: Resolved Assessment and Plan: 11/16: ABG showed hypercapnia, will initiate BIPAP if still elevated on the recheck Chest x-ray did show subcutaneous gas in the chest wall, will obtain CT chest, will avoid contrast for now due to her kidney disease Check Dopplers for now, consider CTA 11/17: Repeat ABG showed normalized CO2, this was likely secondary to hypoventilation from opiate administration with possible component of OHS, would recommend checking an ApneaLink prior to discharge once off pain medication if still on oxygen vs sleep study outpatient. Dopplers were negative for DVT, do not suspect PE at this time, but still in the differential. Likely component of atelectasis. IS to bedside. Ambulate as able. 11/18: resolved (2) Abnormal head CT: Code(s): R93.0 - Abnormal findings on diagnostic imaging of skull and head, not elsewhere classified Status: Chronic Assessment and Plan: 11/17: Unsure of etiology of abnormal findings on CT head, do not suspect they are contributing to the acute issues at hand, however, will consult neurology to further investigate these findings, if necessary, and attempt to find old records to confirm chronicity. Also, will repeat CT head today 24 hours after initial CTH to confirm hemorrhage not increasing, if present at all 11/18: repeat CTH confirmed no hemorrhage, extensive calcifications noted (3) Pleural effusion: Code(s): J90 - Pleural effusion, not elsewhere classified Status: Acute Assessment and Plan: 11/17: Chest CT and CXR did show diffuse subcutaneous gas likely secondary to surgery as well as pleural effusion Lasix 40 mg IV x1 11/18: repeat CXR pending, weaned to RA (4) Lesion of adrenal gland: Code(s): E27.9 - Disorder of adrenal gland, unspecified Status: Chronic Assessment and Plan: Incidental adrenal mass noted, MR recommended to evaluate, this is ordered and pending MRI of the abdomen showed a 2.8 cm mass in the left adrenal gland containing blood products that is new from previous abdominal imaging, concerning for hematoma, however, MRI with and without contrast is recommended in 3 months to exclude malignancy (5) History of Avery fundoplication: Code(s): Z98.890 - Other specified postprocedural states Status: Acute Assessment and Plan: Postop day 4 from the procedure which was done November 14, 2022 Management per general surgery (6) Stage 3a chronic kidney disease: Code(s): N18.31 - Chronic kidney disease, stage 3a Status: Chronic Assessment and Plan: Creatinine appears to be at baseline, monitor (7) Benign hypertension with chronic kidney disease: Code(s): I12.9 - Hypertensive chronic kidney disease with stage 1 through stage 4 chronic kidney disease, or unspecified chronic kidney disease Status: Chronic (8) HTN (hypertension): Code(s): I10 - Essential (primary) hypertension Status: Acute Assessment and Plan: Blood pressures reviewed 11/18 (9) Hypothyroidism: Code(s): E03.9 - Hypothyroidism, unspecified Status: Acute Assessment and Plan: TSH on the lower side, but wnl, does not appear to be on thyroid replacement hormone? unsure of etiology of this diagnosis? (10) Hyperlipidemia: Code(s): E78.5 - Hyperlipidemia, unspecified Status: Acute Plan DVT prophylaxis with lovenox GI prophylaxis not indicated Code status full code Please follow-up with an MRI with and without contrast of the abdomen in 3 months to exclude malignancy Subjective Date/time seen: 11/18/22 08:43 Interval history: 52-year-old female with history of hypothyroidism, chronic kidney disease, hyperlipidemia, hypertension and GERD presented for Avery fundoplication due to peptic ulce
--- NOTE | 2022-11-18 11:14 | PM.DS ---
DS: Admitting Diagnosis Discharge Date 11/18/22 Admitting Diagnosis GERD Carrillo ulcer obesity HTN CKD stage 3 DS: Discharge Diagnosis Discharge Diagnosis (1) GERD (gastroesophageal reflux disease): Qualifiers: Esophagitis presence: without esophagitis Qualified Code(s): K21.9 - Gastro-esophageal reflux disease without esophagitis Code(s): K21.9 - Gastro-esophageal reflux disease without esophagitis Status: Chronic (2) Carrillo ulcer: Qualifiers: Gastric ulcer chronicity: chronic Qualified Code(s): K25.7 - Chronic gastric ulcer without hemorrhage or perforation Code(s): K25.9 - Gastric ulcer, unspecified as acute or chronic, without hemorrhage or perforation Status: Chronic (3) Altered mental status: Code(s): R41.82 - Altered mental status, unspecified Status: Resolved Assessment and Plan: Occurred 11/16. Probably due to narcotics although not clear that she had taken any Morphine prior, just [place] 10:00pm not before onset. (4) History of Avery fundoplication: Code(s): Z98.890 - Other specified postprocedural states Status: Acute Assessment and Plan: no sx of reflux. Minimal dysphagia. On full liquids. Laparoscopic Avery fundoplication performed 11/14/22. (5) Lesion of adrenal gland: Code(s): E27.9 - Disorder of adrenal gland, unspecified Status: Chronic Assessment and Plan: noted on CT, MRI done but not read. Will be f/u as outpatient (6) Abnormal head CT: Code(s): R93.0 - Abnormal findings on diagnostic imaging of skull and head, not elsewhere classified Status: Chronic Assessment and Plan: Multiple areas dystrophic calcifications. Dr. Deleon, hospitalist, arranging outpt Neuro f/u. (7) Benign hypertension with chronic kidney disease: Code(s): I12.9 - Hypertensive chronic kidney disease with stage 1 through stage 4 chronic kidney disease, or unspecified chronic kidney disease Status: Chronic (8) CKD (chronic kidney disease) stage 3, GFR 30-59 ml/min: Qualifiers: Chronic kidney disease stage 3 subtype: stage 3a (GFR 45-59) Qualified Code(s): N18.31 - Chronic kidney disease, stage 3a Code(s): N18.30 - Chronic kidney disease, stage 3 unspecified Status: Chronic DS: Summary Hospital Course Hospital Course: Patient taken to surgery on 11/14/22 and laparoscopic Avery fundoplication performed. Surgery was uneventful. Patient was doing well and plan was to discharge on 11/16/22 when she was overly sleepy and became unresponsive. Rapid Response was called. Per Computer Technology Trainer, Dr. Casper, patient had a prompt improvement after administration of Narcan. She was still lethargic and slurring words but no longer obtunded. She was transferred to IMU and observed closely. Hospitalist consultation was performed. Thorough evaluation including CT head and chest, CXR, venous dopplers were obtained. Nothing was found to be a proximal cause of the mental status change. Patient felt she got too much Morphine. Medication admin showed she did not receive Morphine the day prior, only 5mg hydrocodone and 325 mg acetaminophen at 10:00pm 11/15/22. CT of head showed multiple areas of dystrophic calcifications and outpatient neurology f/u being arranged. Left adrenal gland enlarged to 2.9cm on CT chest. MRI done but not read at time discharge. Patient had resolution of mental status changes after 24hrs and transferred to floor on 11/17/22. She remained stable and recovering well postop on 11/18 and was discharged on full liquid diet. Status at Discharge Functional status at discharge: independent ambulation Overall status at discharge: patient is progressing back to baseline Time Spent with Patient Time attestation: Total time spent providing and/or coordinating discharge services: Time spent: Less than 30 minutes Discharge Plan Discharge Attending physician on discharge: Cesar Mathews
== END 2022-11-18 13:30 | disposition home or self-care (01) | DRG 327 ==
LOC: ANHSURGERY 16:50 → ANH2MED 16:50 → ANHIMU 11-16 10:39 → ANH3MEDSUR 11-17 11:29
PROVIDERS: Nurse Practitioner Acute Care; Student in an Organized Health Care Education/Training Program; Admitting Provider Surgery; PCP Family Medicine; Visit Provider Surgery
PROC: 0DV44ZZ Restriction of Esophagogastric Junction, Percutaneous Endoscopic Approach (ICD-10-PCS; CPT 43281; principal; 2022-11-14 07:30)
DX: K21.9 Gastro-esophageal reflux disease without esophagitis (principal); I97.191 Other postprocedural cardiac functional disturbances following other surgery; J90 Pleural effusion, not elsewhere classified; N25.81 Secondary hyperparathyroidism of renal origin; K25.7 Chronic gastric ulcer without hemorrhage or perforation; K44.9 Diaphragmatic hernia without obstruction or gangrene; L98.499 Non-pressure chronic ulcer of skin of other sites with unspecified severity; R41.82 Altered mental status, unspecified; T40.605A Adverse effect of unspecified narcotics, initial encounter; E27.9 Disorder of adrenal gland, unspecified; R93.0 Abnormal findings on diagnostic imaging of skull and head, not elsewhere classified; I12.9 Hypertensive chronic kidney disease with stage 1 through stage 4 chronic kidney disease, or unspecified chronic kidney disease; N18.31 Chronic kidney disease, stage 3a; E78.5 Hyperlipidemia, unspecified; E03.9 Hypothyroidism, unspecified; M19.90 Unspecified osteoarthritis, unspecified site; Z96.612 Presence of left artificial shoulder joint; Z96.653 Presence of artificial knee joint, bilateral; Z90.49 Acquired absence of other specified parts of digestive tract; R00.0 Tachycardia, unspecified; E66.9 Obesity, unspecified; Z68.39 Body mass index [BMI] 39.0-39.9, adult
CPT/HCPCS: 36415; 36600; 70450; 71045; 71250; 74181; 80048; 82805; 82948; 84443; 84484; 85025; 85027; 93005; 93970; A9270; J0690; J1100; J1650; J1940; J2250; J2270; J2310; J2371; J2405; J2704; J3010; J7120

== ENCOUNTER 2023-03-02 09:59 | Outpatient (CLI) | payer MEDICARE, MEDICAID, SELFPAY ==
[2023-03-02 10:38] LABS: Albumin Level 3.4 g/dL (3.4-5.0); Anion Gap 9 mmol/L (8-16); Blood Urea Nitrogen 23 mg/dL (7-18); Calcium 8.8 mg/dL (8.5-10.1); Carbon Dioxide 30 mmol/L (21-32); Chloride 104 mmol/L (98-108); Estimated Glomerular Filt Rate 45; Glucose 96 mg/dL (70-99); Osmolality Calculated 299 mOsm/kg (285-295); Phosphorus 3.9 mg/dL (2.6-4.7); Potassium 4.2 mmol/L (3.5-5.1); Sodium 143 mmol/L (136-145)
[2023-03-03 13:14] LABS: Creatinine Urine 102.42 mg/dL (40-278); Sodium Urine Random 110 mmol/L (20-110); Total Protein Urine Random 16.4 mg/dL (0.0-11.9); Ur Ttl Prot Creatinine Ratio 0.16 mg/mg (0-0.20)
[2023-03-06 18:23] LABS: Vitamin D 25 Hydroxy 20 ng/mL (30-100)
[2023-03-06 19:23] LABS: Parathyroid Intact 62 pg/mL (14-64)
== END 2023-03-02 10:00 | disposition home or self-care (01) ==
PROVIDERS: PCP Family Medicine; Visit Provider Internal Medicine Nephrology
DX: E55.9 Vitamin D deficiency, unspecified (principal); I12.9 Hypertensive chronic kidney disease with stage 1 through stage 4 chronic kidney disease, or unspecified chronic kidney disease; N25.81 Secondary hyperparathyroidism of renal origin; N18.32 Chronic kidney disease, stage 3b
CPT/HCPCS: 36415; 80069; 82306; 82570; 83970; 84156; 84300

== ENCOUNTER 2023-03-07 09:32 | Outpatient (CLI) | payer MEDICARE, SELFPAY ==
--- NOTE | ~2023-03-07 | MR_ITS ---
EXAMINATION: MR abdomen wo/w con DATE: 03/07/2023 10:52 INDICATION: Disorder of adrenal gland TECHNIQUE: Magnetic resonance imaging (MRI) of the abdomen was performed without and with 17 mL Multi odilon intravenous contrast. Sequences included coronal and axial T2-weighted SS-FSE, axial FS 2D-FIES TA, coronal and axial dual-echo T1-weighted FSPGR, axial T1-weighted LAVA, and axial STIR FSE. Postco ntrast axial T1-weighted LAVA images were obtained in a time course. Postcontrast coronal T1-weighted LAVA images were obtained. COMPARISON: 11/18/2022 FINDINGS: Heart size is normal. No pericardial or pleural effusion. Postoperative change of prior Avery fundop lication. No interval change in mild intra and extra hepatic biliary ductal dilation likely related t o prior cholecystectomy. 3.1 x 2.3 cm lobular T2 hyperintense with peripheral enhancement which gradu ally fills in centrally on delayed imaging most consistent with a hemangioma. No interval change in a couple T2 hyperintense nonenhancing splenic cysts. Pancreas is normal. There are also bilateral T2 h yperintense nonenhancing renal cysts the largest on the left measuring 1.7 cm. Right adrenal gland is normal. A prior 3.1 x 2.3 cm left adrenal mass has nearly resolved with residual 1.3 x 0.9 cm nodule with signal characteristics on the prior MRI suggesting this represented a now resolving hematoma. V isualized portions of bowels are unremarkable. No pathologically enlarged abdominal lymphadenopathy. Severe lumbar spondylosis with associated degenerative endplate changes. T1 hyperintense hemangioma a t L3. IMPRESSION: 1. Significant decrease in size of a previously 3.1 x 2.3 cm, currently 1.3 x 0.9 centimeters left ad renal nodule which along with the prior MR signal characteristics would be most consistent with a now resolving adrenal hematoma. Reviewed, dictated and finalized at location A. IMPRESSION: 1. Significant decrease in size of a previously 3.1 x 2.3 cm, currently 1.3 x 0 .9 centimeters left adrenal nodule which along with the prior MR signal charact eristics would be most consistent with a now resolving adrenal hematoma.
== END 2023-03-07 09:33 ==
PROVIDERS: PCP Family Medicine; Visit Provider Surgery
DX: E27.9 Disorder of adrenal gland, unspecified (principal)
CPT/HCPCS: 74183; A9577

== ENCOUNTER 2023-05-07 12:19 | Outpatient (CLI) | payer MEDICARE, MEDICAID, SELFPAY ==
--- NOTE | ~2023-05-07 | MM_ITS ---
EXAMINATION: MM screening [facility] BI w lesli HISTORY: Screening mammogram TECHNIQUE: Craniocaudal and mediolateral oblique 3-D tomosynthesis images were obtained and synthetic 2-D images were generated. CAD analysis was submitted and interpreted. COMPARISON: 03/02/2022, 12/08/2020, 11/05/2019 BREAST PARENCHYMAL COMPOSITION: The breasts are almost entirely fatty. FINDINGS: No suspicious mass, calcification, or architectural distortion are identified in either yuliet ast to suggest malignancy. There has been no suspicious interval change. IMPRESSION: 1. No mammographic evidence of malignancy. 2. Recommend routine screening mammography in one year. BI-RADS Category 1: Negative Reviewed, dictated and finalized at location A. P HOOKER
== END 2023-05-07 12:20 | disposition home or self-care (01) ==
LOC: CHSIMG 12:20
PROVIDERS: PCP Family Medicine; Visit Provider Family Medicine
DX: Z12.31 Encounter for screening mammogram for malignant neoplasm of breast (principal)
CPT/HCPCS: 77063; 77067

== ENCOUNTER 2023-05-10 10:09 | Outpatient (CLI) | payer MEDICARE, MEDICAID, SELFPAY ==
[2023-05-10 11:13] LABS: Basophils Absolute Auto 0.1 K/mm3 (0.0-0.1); Basophils Percent Auto 0.6 % (0.2-1.2); Eosinophils Absolute Auto 0.2 K/mm3 (0-0.3); Eosinophils Percent Auto 2.4 % (0-4.4); Hematocrit 43.4 % (37.0-47.0); Hemoglobin 13.4 g/dL (12.0-15.0); Immature Granulocyte Absolute 0.02 K/mm3 (0.00-0.031); Immature Granulocyte Percent A 0.2 % (0-0.5); Lymphocytes Absolute Auto 2.85 K/mm3 (0.9-3.2); Lymphocytes Percent Auto 31.5 % (18.3-44.2); Mean Corpuscular HGB Conc 30.9 g/dl (32-36); Mean Corpuscular Hemoglobin 26.9 pg (26-34); Mean Platelet Volume 10.8 fl (7.4-10.4); Monocytes Absolute Auto 0.7 K/mm3 (0.1-0.6); Monocytes Percent Auto 7.6 % (2.6-8.5); Neutrophils Absolute Auto 5.2 K/mm3 (1.3-6.7); Neutrophils Percent Auto 57.7 % (45.5-73.1); Platelet Count Result 264 k/mm3 (150-375); Red Blood Count 4.99 M/mm3 (4.2-5.4); Red Cell Distribution Width 12.6 % (11.5-14.5); White Blood Count 9.1 K/mm3 (4.5-10.0)
[2023-05-10 11:24] LABS: INR 0.9; Partial Thromboplastin Time 25.9 SECONDS (22.3-36.8); Prothrombin Time 12.7 Seconds (11.1-14.7)
[2023-05-10 11:25] LABS: Anion Gap 10 mmol/L (8-16); Blood Urea Nitrogen 24 mg/dL (7-17); Calcium 8.9 mg/dL (8.4-10.2); Carbon Dioxide 28 mmol/L (22-30); Chloride 103 mmol/L (98-107); Estimated Glomerular Filt Rate 47; Glucose 101 mg/dL (65-110); Potassium 4.3 mmol/L (3.4-5.0); Sodium 141 mmol/L (137-145)
== END 2023-05-10 10:10 | disposition home or self-care (01) ==
LOC: ANHSURGERY 10:15
PROVIDERS: Anesthesiology; PCP Family Medicine; Visit Provider Orthopaedic Surgery
DX: Z01.818 Encounter for other preprocedural examination (principal); N18.30 Chronic kidney disease, stage 3 unspecified; Z51.81 Encounter for therapeutic drug level monitoring; T84.9XXA Unspecified complication of internal orthopedic prosthetic device, implant and graft, initial encounter
CPT/HCPCS: 36415; 80048; 85025; 85610; 85730; 87081

== ENCOUNTER 2023-05-30 12:37 | Outpatient (CLI) | payer MEDICARE, MEDICAID, SELFPAY ==
--- NOTE | ~2023-05-30 | CT_ITS ---
EXAMINATION: CT shoulder LT wo con DATE: 05/30/2023 12:56 INDICATION: Left shoulder arthroplasty. Preoperative planning. TECHNIQUE: Computed tomography (CT) of the left shoulder was performed without intravenous contrast. Automated exposure control and iterative reconstruction technique were employed. The dose-length prod uct was 409.61 mGy-cm. COMPARISON: Left shoulder radiographs 03/01/2023 FINDINGS: There is a total left shoulder arthroplasty. No fracture. No periprosthetic lucency to sugg est loosening or infection. There is a 19 mm loose body in the axillary recess. There is mild osteoar thritis of acromioclavicular joint. IMPRESSION: 1. Total left shoulder arthroplasty in near-anatomic alignment. 2. Loose body in the glenohumeral joint. Reviewed, dictated and finalized at location E. GUN SHELL LOADING MACHINE OPERATOR
== END 2023-05-30 12:38 | disposition home or self-care (01) ==
LOC: ANHIMG 12:39
PROVIDERS: PCP Family Medicine; Visit Provider Orthopaedic Surgery
DX: Z96.612 Presence of left artificial shoulder joint (principal); M24.012 Loose body in left shoulder
CPT/HCPCS: 73200

== ENCOUNTER 2023-06-03 17:16 | Inpatient (IN) | payer MEDICARE, MEDICAID, SELFPAY ==
[2023-05-10 10:27] VITALS: BP 136/89; PULSE 93; RESP 16; TEMP 36.9; O2SAT 97; BMI 39.6
--- NOTE | 2023-05-10 10:43 | PC.NURSE ---
Report to the Outpatient Waiting Room, entrance under the green pavilion located off [facility], at time __10:00AM on date __06/03/23__. Planned Procedure Time: __12:00PM . Time changes happen often and if your time is changed the preop area will call you the afternoon before. - You and your visitor will be asked to self-screen and do not enter if you have any COVID symptoms. - A mask is optional within the hospital at this time. Patients may have clear liquids (water, carbonated beverages, clear teas, apple juice) until 3 hours prior to surgery with a maximum of 20 ounces. - No food from midnight until time of surgery. Take the following medications with a SIP of water the morning of surgery: ___NONE DO NOT STOP ANY OF YOUR OTHER PRESCRIPTION MEDICATIONS PRIOR TO SURGERY ?EXCEPT THE FOLLOWING Medications to discontinue per physician ___HOLD ALL VITAMINS/SUPPLEMENTS 3 DAYS PRE-OP PER DR TANG(PER PATIENT) Date to take last dose__05/30/23 Please no make-up, nail urdu, hairspray, perfume, deodorant, or body powder the day of surgery. No jewelry (including any body piercings) or valuables the day of surgery, leave them at home. Please take a shower or bath the night before, or the morning of, surgery with an antibacterial soap. Wear comfortable, loose fitting clothing. Children are encouraged to wear pajamas. - Jewelry must be removed prior to entering the operating room. Rings and piercings that are not removed may be cut off. - The hospital will not accept responsibility for valuables. - Please leave all valuables, including medications, at home the day of surgery. If you are going home after surgery, a licensed concrete mixer truck driver must drive you home. - NO public transportation without another adult if you receive anesthesia. - We recommend that an adult stay with you for 24 hours following discharge. - We also recommend that you do not drive, make important decision, drink alcoholic beverages, or take any drugs that were not prescribed by your health care provider for at least 24 hours after your discharge time. Follow any additional instructions given to you from your surgeon. If you or anyone in your household have experienced Covid symptoms in the past week, please notify your surgeon or the nurse liaison at the phone number below for possible testing. Telephone instructions given to __PATIENT and asked if any additional questions and then verbalized understanding. Patient advised to call surgeon office or pre surgery nurse liaison [phone] if any additional questions.
[2023-06-03] VITALS (10 sets, daily range): BP systolic 112–142; BP diastolic 50–87; PULSE 72–101; RESP 12–18; TEMP 35.9–36.6; O2SAT 95–100
--- NOTE | ~2023-06-03 | XR_ITS ---
EXAM: XR shoulder LT min 2V DATE: 06/03/2023 16:41 HISTORY: LT REVISION TOTAL SHOULDER . COMPARISON: 03/01/2023. FINDINGS: Interval total left shoulder arthroplasty, hardware in good position. No unexpected radiop aque foreign body. Low lung volumes with crowding and bibasilar atelectasis. IMPRESSION: Expected postsurgical changes, with no radiographic evidence of procedure or hardware rel ated complication. Reviewed, dictated and finalized at location K. TESTER IMPRESSION: Expected postsurgical changes, with no radiographic evidence of pro cedure or hardware related complication.
[2023-06-03] MEDS: ACETAMINOPHEN 500 MG TABLET 1000 MG PO ×3 (11:00→23:22)
[2023-06-03] MEDS: LACTATED RINGERS 1,000 ML 30 ML IV CONT (11:30)
--- NOTE | 2023-06-03 11:47 | WPDANESEPPF ---
Anes - Initial Pre Proc Eval Procedure: Operation Date: 06/03/23 12:00 Proposed Procedures p Left Revision Total Shoulder Arthroplasty with Hardware Removal - Say Kolb MD Date/Time: 06/03/23 11:47 Surgeon: Say Kolb MD Pre Op Diagnosis: Compl of Left Shldr Joint, S.P. Shldr Arthroplasty Patient Data Age: 53 Gender: F Height: 1.52 m Weight: 92.2 kg Last Vital Signs Temp 36.9 C 05/10/23 10:27 Pulse 93 05/10/23 10:27 Resp 16 05/10/23 10:27 BP 136/89 05/10/23 10:27 Pulse Ox 97 05/10/23 10:27 O2 Del Method Room Air 05/10/23 10:27 Allergies Allergy/AdvReac Type Severity Reaction Status Date / Time Sulfa (Sulfonamide Allergy Unknown Rash Verified 06/03/23 11:39 Antibiotics) Home Medications Medication Instructions Recorded Confirmed Type vit C 250 mg-vit E 90 mg-zinc 40 1 tablet PO BID 04/09/22 06/03/23 History mg-copper 1 [id number] capsule (PreserVision AREDS-2) cranberry 1,000 mg capsule 1,000 mg PO DAILY PRN OTHER 09/24/22 06/03/23 History diphenhydramine 25 2 tablet PO HS PRN PAIN/INSOMNIA 09/24/22 06/03/23 History mg-acetaminophen 500 mg tablet (Tylenol PM Extra Strength) atorvastatin 40 mg tablet 40 mg PO DAILY 05/10/23 06/03/23 History cholecalciferol (vitamin D3) 25 25 mcg PO DAILY 05/10/23 06/03/23 History mcg (1,000 unit) capsule lisinopril 20 1 tablet PO QAM 05/10/23 06/03/23 History mg-hydrochlorothiazide 25 mg tablet melatonin 10 mg tablet 10 mg PO HS PRN Insomnia 05/10/23 06/03/23 History Patient hx anesthesia problems: none Family hx anesthesia problems: none Results Review: All pre-operative results and documents have been reviewed as part of the pre-operative evaluation. [facility] Past Medical History Medical History Depression GERD (gastroesophageal reflux disease) Hiatal hernia HTN (hypertension) Hyperlipidemia Hypocalcemia Hypokalemia Hypothyroidism Lesion of adrenal gland Osteoarthritis Surgical History Surgical History History of Avery fundoplication 11/14/2022 - Laparoscopic Avery fundoplication History of shoulder surgery (~07/23/18) Lt - Subscap Tendon Repair History of total replacement of left shoulder joint History of total shoulder replacement (~06/24/18) Lt Hx of cholecystectomy Hx of colonoscopy Hx of total knee replacement Right 2014 Left 2015 Family History Family History Sister Family history of migraine headaches Mother Hypertension Other Heart disease Skin cancer Social History Social History Smoking status: Never smoker Alcohol intake: current Alcohol use details: Occasional use Substance use: never Substance use type: does not use Do You Feel Safe in your Home?: Yes Lack of Transportation: YES Lack of Food: Never True Current Housing: I Have Housing Concerned About Future Housing: No Difficulty Paying Gas/Electric Bills: No Difficulty Paying for Meds: No Currently Unemployed: No Education: High School Diploma/GED Difficulty w/ Childcare or Family Care: No Living arrangements: with family Additional living arrangements comments: [facility] Occupation/Education: other Additional occupation/education comments: Disabled Gender identity (if verbalized by the patient): Female Spiritual care concerns: No Anes - Eval Final PreProcedure Day of Procedure 06/03/23 11:47 Patient weight: morbidly obese Heart: regular rate and rhythm Lungs: decreased breath sounds Airway: Mallampati scale class II Neurological: alert and oriented Last oral intake: >/= 8 hours ASA classification: III Emergent: no Anesthetic plan: proceed Anesthesia type and monitoring: general ETT and standard monitoring Res
[2023-06-03] MEDS: TRANEXAMIC ACID 1,000MG/ISO100 1,000 MG/100 ML BAG 200 MG IVPB (11:50)
--- NOTE | 2023-06-03 12:18 | WPDHPUPDATE1 ---
History and Physical Update Update Date/Time: 06/03/23 12:18 History and Physical has been reviewed, including an updated exam of the patient. There are NO changes in the patient's condition. Risks, benefits, and alternatives have been discussed and questions answered. Patient agrees to proceed with procedure.
[2023-06-03] MEDS: ceFAZolin 2 GM/D5W 50 ML 2 GM/50 ML BAG IVPB ×2 (12:53→20:44)
[2023-06-03] MEDS: VANCOMYCIN HCL 1,000 MG VIAL 1000 MG TOPICAL (13:47)
--- NOTE | 2023-06-03 15:48 | W.PM.PROC2 ---
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 Post-op Diagnosis Same Procedure Performed Revision anatomic total shoulder to reverse total shoulder, left. Surgeon Say Kolb MD Anesthesia General Indications Persistent pain and functional deficit due to anterior superior escape status post lesser tuberosity osteotomy failure and subsequent subscapularis deficiency. Findings No signs of infection. Minimal fluid in the joint appeared benign. No evidence of any inflammation whatsoever. Good bone quality. Three cultures taken from the trunnion of the humeral component. The humeral component was well fixed. The polyethylene acetabulum was excised in the routine fashion. Very small stature patient. 25 mm glenosphere placed over the previous inset circular pegged glenoid component. Previous central peg hole aligned very well. This matched the preoperative templating with the [employer] software. Three plans were initially created 1 with implant retention, a 2nd with a short stem perform humeral implant, and a 3rd with a revision modular humeral implant. The convertible stem was intact, and appropriate to retain for the revision. Description of Procedure Preoperative antibiotics were given. A general anesthetic was administered. The patient was cleared for placed in the beach chair position. The head and neck were carefully positioned. The shoulder was prepped and draped in the usual sterile fashion after marking out the previous incision. The previous scar had widened significantly. This was excised. Careful identification of the deltopectoral interval was performed. The tissue planes remained quite good. The scar was carefully excised down to the upper pectoralis which was incised about 5 mm. Subdeltoid adhesions were carefully released. Multiple sutures at the lesser tuberosity repair site were removed. The bone from the previous lesser tuberosity ostomy was medially and inferiorly displaced and was excised. Careful excision of the anterior capsule was performed. Glenoid exposed rather easily. Overall her tissues were somewhat lax. The inset polyethylene glenoid was removed with the osteotome. The reverse base plate was aligned and 5-10? of inferior tilt was added. The central pin was placed. Reaming was performed and the boss was drilled. The real base plate sat very nicely with good purchase. The central screw was very secure. An additional compression screw was placed posteriorly followed by 2 locking screws superior and inferior. The anterior screw was very short and was not placed. The shoulder was trialed with standard glenosphere. It was fairly tight. The real glenosphere was impacted and attention was turned to the humerus again. Reduction was possible with tightness but the strap muscles were not overly tight and the deltoid had a good wrap without undue tension. Good internal and external rotation was confirmed without any tendency towards instability. There was no evident impingement in abduction. Abduction was to approximately 60? before sub acromial impingement was suggested. Shoulder was copiously irrigated periodically throughout the procedure. The real tray and humeral insert were applied. The humerus tray was placed at the 06:00 o'clock low offset position. Reduction at the 12 o'clock position was not reasonably possible. 1 g of vancomycin powder was placed into the wound. Layers were closed with 2-0 Vicryl suture followed by 3-0 Stratafix and 4-0 Stratafix followed by Steri-Strips. A sterile dressing was applied. The patient was placed in a sling and extubated. Estimated blood loss was 50 mL. There were no complications. Implants Validus-IVC perform glenoid standard base plate 25 mm diameter. 36 mm standard glenosphere. Low offset tray and 36 mm standard polyethylene inser
--- NOTE | 2023-06-03 16:44 | SUR.PHASEI ---
1643: Simple mask removed.
--- NOTE | 2023-06-03 17:35 | ADMGEN ---
This patient, Lorena Jensen, was admitted to Medical Room 349-01. Patient/family oriented to hospital policies and general routines including ID bracelet, bed and alarms, visiting hours, pain management, procedures, bathroom and other care routines, personal items, smoking policy, room service/diet, and visiting hours. Information on how to activate the Rapid Response Team has been discussed. Patient/Family are encouraged to report perceived risks to care and to ask questions if they do not understand what they are told or what they should do.
[2023-06-03] MEDS: ASPIRIN 81 MG ENTERIC TABLET PO (17:50)
[2023-06-03] MEDS: SENNA/DOCUSATE SODIUM TABLET 2 TAB PO (17:50)
[2023-06-03] MEDS: oxyCODONE HCL (*CRX) 5 MG TAB IR PO (17:50)
[2023-06-03] MEDS: MELOXICAM 7.5 MG TABLET PO (17:50)
[2023-06-03] MEDS: FAMOTIDINE 20 MG TABLET PO (20:44)
[2023-06-04 00:52] VITALS: BP 138/88; PULSE 98; RESP 18; TEMP 36.6; O2SAT 96
[2023-06-04 04:05] VITALS: BP 116/83; PULSE 102; RESP 18; TEMP 36.6; O2SAT 97
[2023-06-04] MEDS: ceFAZolin 2 GM/D5W 50 ML 2 GM/50 ML BAG IVPB ×2 (05:02→12:19)
[2023-06-04] MEDS: ACETAMINOPHEN 500 MG TABLET 1000 MG PO ×2 (05:02→12:18)
[2023-06-04 06:21] LABS: Basophils Percent Auto 0.2 % (0.2-1.2); Hematocrit 36.5 % (37.0-47.0); Hemoglobin 11.4 g/dL (12.0-15.0); Immature Granulocyte Absolute 0.07 K/mm3 (0.00-0.031); Immature Granulocyte Percent A 0.4 % (0-0.5); Lymphocytes Absolute Auto 1.48 K/mm3 (0.9-3.2); Lymphocytes Percent Auto 9.1 % (18.3-44.2); Mean Corpuscular HGB Conc 31.2 g/dl (32-36); Mean Corpuscular Hemoglobin 26.6 pg (26-34); Mean Corpuscular Volume 85.1 fl (80-100); Mean Platelet Volume 11.1 fl (7.4-10.4); Monocytes Absolute Auto 1.2 K/mm3 (0.1-0.6); Monocytes Percent Auto 7.1 % (2.6-8.5); Neutrophils Absolute Auto 13.6 K/mm3 (1.3-6.7); Neutrophils Percent Auto 83.2 % (45.5-73.1); Platelet Count Result 205 k/mm3 (150-375); Red Blood Count 4.29 M/mm3 (4.2-5.4); Red Cell Distribution Width 12.6 % (11.5-14.5); White Blood Count 16.3 K/mm3 (4.5-10.0)
[2023-06-04 06:31] LABS: Anion Gap 5 mmol/L (8-16); Blood Urea Nitrogen 24 mg/dL (7-17); Calcium 8.2 mg/dL (8.4-10.2); Carbon Dioxide 30 mmol/L (22-30); Chloride 99 mmol/L (98-107); Estimated CRCL calculation 45 ml/min; Estimated Glomerular Filt Rate 43; Glucose 119 mg/dL (65-110); Potassium 4.5 mmol/L (3.4-5.0); Sodium 134 mmol/L (137-145)
[2023-06-04] MEDS: hydroCHLOROthiazide 25 MG TABLET PO (08:46)
[2023-06-04] MEDS: MELOXICAM 7.5 MG TABLET PO (08:46)
[2023-06-04] MEDS: CHOLECALCIFEROL 1,000 UNITS TABLET 1000 UNITS PO (08:46)
[2023-06-04] MEDS: SENNA/DOCUSATE SODIUM TABLET 2 TAB PO (08:46)
[2023-06-04] MEDS: oxyCODONE HCL (*CRX) 5 MG TAB IR PO (08:46)
[2023-06-04] MEDS: lisinopriL 20 MG TABLET PO (08:46)
[2023-06-04] MEDS: ATORVASTATIN 40 MG TABLET PO (08:46)
[2023-06-04] MEDS: FAMOTIDINE 20 MG TABLET PO (08:47)
[2023-06-04] MEDS: polyethylene glycoL 3350 17 GM POWD.PACK PO (08:47)
[2023-06-04] MEDS: ASPIRIN 81 MG ENTERIC TABLET PO (08:47)
--- NOTE | 2023-06-04 10:31 | PM.DS ---
DS: Admitting Diagnosis Discharge Date 06/04/23 Admitting Diagnosis Failed anatomic total shoulder. DS: Discharge Diagnosis Discharge Diagnosis (1) Status post reverse total arthroplasty of left shoulder: Code(s): Z96.612 - Presence of left artificial shoulder joint Status: Acute Assessment and Plan: Postop day 1: Left reverse total shoulder arthroplasty. Patient tolerated procedure well. No complications. Pain manageable with pain medication. No numbness or tingling. We had a lengthy discussion regarding postoperative wound care, limitations, expectations, and exercises. Patient shows good understanding. She has had initial physical therapy and is tolerating it well. DVT prophylaxis: 81 mg baby aspirin b.i.d. for 14 days. Pain medication: Percocet. Prophylactic antibiotic: Doxycycline. Patient has followup appointment with Dr. Kolb in 3 weeks. DS: Summary Hospital Course Hospital Course: She has had initial PT and OT and is tolerating it well. Status at Discharge Functional status at discharge: independent ambulation Overall status at discharge: patient is progressing back to baseline Time Spent with Patient Time attestation: Total time spent providing and/or coordinating discharge services: Exam Narrative: Overweight 53 y/o Female. Resting comfortably in chair. Wearing sling. Dressing dry and intact with no drainage. Moderate swelling. Mild ecchymosis. No erythema. No hematoma. Range of motion limited due to pain. Calf nontender. Neurologic status intact. No varicosities. Distal pulses palpable. DS: Data Data Completed and Pending Labs on day of discharge: Labs from last 24 hours 06/04/23 06/03/23 06:11 10:51 WBC 16.3 H RBC 4.29 Hgb 11.4 L Hct 36.5 L MCV 85.1 MCH 26.6 MCHC 31.2 L RDW 12.6 Plt Count 205 MPV 11.1 H Immature Gran % (Auto) 0.4 Neut % (Auto) 83.2 H Lymph % (Auto) 9.1 L [place] % (Auto) 7.1 Eos % (Auto) 0.0 Baso % (Auto) 0.2 Lymph # (Auto) 1.48 [place] # (Auto) 1.2 H Eos # (Auto) 0.0 Baso # (Auto) 0.0 Abs Immat Gran (auto) 0.07 H Absolute Neuts (auto) 13.6 H Absolute Nucleated RBC 0.0 Nucleated RBC % 0.0 Sodium 134 L Potassium 4.5 Chloride 99 Carbon Dioxide 30 Anion Gap 5 L BUN 24 H Creatinine 1.30 H Estim Creat Clear Calc 45 Estimated GFR 43 L Glucose 119 H Calcium 8.2 L Blood Type B Positive Antibody Screen Negative Discharge Plan Discharge Attending physician on discharge: Say Kolb Discharging Clinician: Leann Clark Patient Disposition: Home, Self-Care Activity: may shower Diet: as tolerated and regular Wound Care Instructions: follow printed instructions Discharge Instructions: See green instruction sheets Stand Alone Forms: General Discharge Instructions Follow-up/Referrals: Leann Clakr, PA [Physician Community Relations Officer] - Discharge Medications: New aspirin 81 mg tablet,delayed release (DR/EC) 81 mg PO BID 14 Days Qty: 28 0RF oxycodone-acetaminophen 5-325 mg tablet 1 - 2 tablet PO Q4-6H MDD 6 PRN (Reason: pain) Qty: 30 0RF doxycycline hyclate 50 mg capsule 50 mg PO BID 14 Days Qty: 28 0RF Continued cholecalciferol (vitamin D3) 25 mcg (1,000 unit) capsule 25 mcg PO DAILY PreserVision AREDS-2 250-90-40-1 mg capsule 1 tablet PO BID cranberry 1,000 mg Capsule 1,000 mg PO DAILY PRN (Reason: OTHER) Rx Instructions: administer with meals FOR URINARY BURNING diphenhydramine-acetaminophen [Tylenol PM Extra Strength] 25-500 mg Tablet 2 tablet PO HS PRN (Reason: PAIN/INSOMNIA) atorvastatin 40 mg tablet 40 mg PO DAILY Rx Instructions: TAKE 1 TABLET BY MOUTH DAILY lisinopril-hydrochlorothiazide 20-25 mg tablet 1 tablet PO QAM Rx Instructions: TAKE 1 TABLET BY MOUTH DAILY melatonin 10 mg Tablet 10 mg PO HS PRN (Aleida
[2023-06-04 11:20] VITALS: BP 93/72; PULSE 67; RESP 18; TEMP 36.8; O2SAT 96
--- NOTE | 2023-06-04 14:15 | WPDANESPN ---
Anes - Prog Note Post-Op Date/Time: 06/04/23 14:15 Cardiovascular status: normal Respiratory status: normal Airway patency: baseline Mental status: baseline Post-Op hydration status: normal Vital Signs: Last Vital Signs Temp 36.8 C 06/04/23 11:20 Pulse 67 06/04/23 11:20 Resp 18 06/04/23 11:20 BP 93/72 L 06/04/23 11:20 Pulse Ox 96 06/04/23 11:20 O2 Del Method Room Air 06/04/23 08:47 O2 Flow Rate 2 06/03/23 17:05 Pain Score (VAS): 07/13 I/O: Intake & Output 06/03/23 06/04/23 06/04/23 23:59 07:59 15:59 Intake Total 250 500 342 Balance 250 500 342 Laboratory Tests 06/04/23 06:11 06/04/23 06:11 06/04/23 06:11 WBC 16.3 H RBC 4.29 Hgb 11.4 L Hct 36.5 L MCV 85.1 MCH 26.6 MCHC 31.2 L RDW 12.6 Plt Count 205 MPV 11.1 H Immature Gran % (Auto) 0.4 Neut % (Auto) 83.2 H Lymph % (Auto) 9.1 L [place] % (Auto) 7.1 Eos % (Auto) 0.0 Baso % (Auto) 0.2 Lymph # (Auto) 1.48 [place] # (Auto) 1.2 H Eos # (Auto) 0.0 Baso # (Auto) 0.0 Abs Immat Gran (auto) 0.07 H Absolute Neuts (auto) 13.6 H Absolute Nucleated RBC 0.0 Nucleated RBC % 0.0 Sodium 134 L Potassium 4.5 Chloride 99 Carbon Dioxide 30 Anion Gap 5 L BUN 24 H Creatinine 1.30 H Estim Creat Clear Calc 45 Estimated GFR 43 L Glucose 119 H Calcium 8.2 L Post-procedural complaints: none Patient Feedback: Patient satisfied with anesthetic care.
[2023-06-04 16:16] VITALS: BP 107/72; PULSE 98; RESP 17; TEMP 36.9; O2SAT 100
== END 2023-06-04 16:45 | disposition home or self-care (01) | DRG 483 ==
LOC: ANH3MED 17:22
PROVIDERS: Admitting Provider Orthopaedic Surgery; PCP Family Medicine; Visit Provider Physician Assistant Surgical
PROC: 0RRK00Z Replacement of Left Shoulder Joint with Reverse Ball and Socket Synthetic Substitute, Open Approach (ICD-10-PCS; CPT 23472; principal; 2023-06-03 12:00)
DX: T84.098A Other mechanical complication of other internal joint prosthesis, initial encounter (principal); I12.9 Hypertensive chronic kidney disease with stage 1 through stage 4 chronic kidney disease, or unspecified chronic kidney disease; N18.30 Chronic kidney disease, stage 3 unspecified; K21.9 Gastro-esophageal reflux disease without esophagitis; K44.9 Diaphragmatic hernia without obstruction or gangrene; E78.5 Hyperlipidemia, unspecified; E03.9 Hypothyroidism, unspecified; M19.90 Unspecified osteoarthritis, unspecified site; F32.A Depression, unspecified; Z96.612 Presence of left artificial shoulder joint; Z96.653 Presence of artificial knee joint, bilateral
CPT/HCPCS: 36415; 73030; 80048; 85025; 86850; 86900; 86901; 87070; 87205; 97110; 97161; 97165; 97530; 97535; A4565; A9270; J0171; J0690; J1100; J1170; J1596; J1885; J2250; J2270; J2405; J2704; J2710; J2795; J3010; J3370; J7120

== ENCOUNTER 2023-06-10 10:10 | Outpatient (CLI) | payer MEDICARE, MEDICAID, SELFPAY ==
--- NOTE | ~2023-06-10 | XR_ITS ---
XR shoulder LT min 2V DATE: 06/10/2023 10:28 INDICATION: Joint replacement surgery aftercare TECHNIQUE: 4 views of left shoulder COMPARISON: 06/03/2023 left shoulder FINDINGS: There is subcutaneous emphysema which may be related to recent surgery; clinical correlatio n and close follow-up radiograph is recommended as clinically appropriate. Again noted is postoperative change from reverse fvrx-kah-ejueuj left glenohumeral arthroplasty. Norm al alignment at the prosthetic joint. No fracture or dislocation. No periosteal reaction or bone dest ruction. No abnormal radiopaque foreign body. IMPRESSION: Probable residual postoperative subcutaneous emphysema Status post left glenohumeral arthroplasty Reviewed, dictated and finalized at location B. [facility]
== END 2023-06-10 10:11 | disposition home or self-care (01) ==
PROVIDERS: PCP Family Medicine; Visit Provider Orthopaedic Surgery
DX: Z47.1 Aftercare following joint replacement surgery (principal); J43.9 Emphysema, unspecified
CPT/HCPCS: 73030

== ENCOUNTER 2023-06-24 10:27 | Outpatient (CLI) | payer MEDICARE, MEDICAID, SELFPAY ==
--- NOTE | ~2023-06-24 | XR_ITS ---
Left Shoulder Technique: AP and scapular Y views were obtained. Clinical History: Arthroplasty, postoperative COMPARISON: 06/10/2023 Findings: No fracture or dislocation is seen. Reverse left shoulder arthroplasty is unchanged. Soft t issues are unremarkable. Impression: No acute abnormality. Stable left shoulder arthroplasty. Reviewed, dictated and finalized at location . OR STATISTICIAN Impression: No acute abnormality. Stable left shoulder arthroplasty.
== END 2023-06-24 10:28 | disposition home or self-care (01) ==
LOC: ANHIMG 10:32
PROVIDERS: PCP Family Medicine; Visit Provider Orthopaedic Surgery
DX: Z96.612 Presence of left artificial shoulder joint (principal)
CPT/HCPCS: 73030

== ENCOUNTER 2023-08-19 09:00 | Outpatient (CLI) | payer MEDICARE, MEDICAID, SELFPAY ==
--- NOTE | ~2023-08-19 | XR_ITS ---
EXAMINATION: XR shoulder LT min 2V DATE: 08/19/2023 09:16 INDICATION: Aftercare following left total shoulder arthroplasty. TECHNIQUE: AP internally and externally rotated, AP oblique externally rotated and transscapular Y vi ews of the left shoulder were obtained. COMPARISON: None FINDINGS: Reverse right total shoulder arthroplasty which appears well seated in near anatomic alignment. No pe riprosthetic lucency to suggest loosening or infection. No fracture. Acromioclavicular joint space is normal. Likely moderate to severe cervical spondylosis. Visualized portion of the lungs are clear. S oft tissues are unremarkable. IMPRESSION: Expected appearance of a reverse left total shoulder arthroplasty. No acute osseous abnormality. Reviewed, dictated and finalized at location A. IMPRESSION: Expected appearance of a reverse left total shoulder arthroplasty. No acute oss eous abnormality.
== END 2023-08-19 09:01 | disposition home or self-care (01) ==
LOC: ANHIMG 09:02
PROVIDERS: PCP Family Medicine; Visit Provider Orthopaedic Surgery
DX: Z96.612 Presence of left artificial shoulder joint (principal); Z47.1 Aftercare following joint replacement surgery
CPT/HCPCS: 73030

== ENCOUNTER 2023-08-24 09:38 | Outpatient (CLI) | payer MEDICARE, MEDICAID, SELFPAY ==
[2023-08-24 11:30] LABS: Albumin Level 3.8 g/dL (3.4-5.0); Anion Gap 5 mmol/L (4-12); Blood Urea Nitrogen 20 mg/dL (7-18); Calcium 8.8 mg/dL (8.5-10.1); Carbon Dioxide 35 mmol/L (21-32); Chloride 102 mmol/L (98-108); Estimated Glomerular Filt Rate 47; Glucose 101 mg/dL (70-99); Osmolality Calculated 296 mOsm/kg (285-295); Phosphorus 3.1 mg/dL (2.6-4.7); Potassium 4.4 mmol/L (3.5-5.1); Sodium 142 mmol/L (136-145)
[2023-08-25 10:43] LABS: Parathyroid Intact 56 pg/mL (16-77)
[2023-08-26 12:09] LABS: Vitamin D 25 Hydroxy 43 ng/mL (30-100)
== END 2023-08-24 09:39 | disposition home or self-care (01) ==
LOC: CHSLAB 09:42
PROVIDERS: PCP Family Medicine; Visit Provider Internal Medicine Nephrology
DX: N25.81 Secondary hyperparathyroidism of renal origin (principal); N18.31 Chronic kidney disease, stage 3a; E55.9 Vitamin D deficiency, unspecified; I12.9 Hypertensive chronic kidney disease with stage 1 through stage 4 chronic kidney disease, or unspecified chronic kidney disease
CPT/HCPCS: 36415; 80069; 82306; 83970

== ENCOUNTER 2023-08-30 13:25 | Emergency (ER) | payer MEDICARE, MEDICAID, SELFPAY ==
--- NOTE | ~2023-08-30 | CT_ITS ---
EXAMINATION: CT abdomen pelvis wo con DATE: 08/30/2023 14:38 INDICATION: Left-sided abdominal pain, flank pain and hematuria. TECHNIQUE: Computed tomography (CT) of the abdomen and pelvis was performed without intravenous contr ast. Automated exposure control and iterative reconstruction technique were employed. The dose-length product was 939.00 mGy-cm. COMPARISON: 03/07/2023 FINDINGS: Lung bases are clear. Heart size is normal. No pericardial or pleural effusion. Cholecystectomy clips at the gallbladder fossa. Liver, spleen, pancreas and right adrenal gland are normal. No significant interval change in a 14 x 10 mm left adrenal nodule. Right kidney is normal. 6 x 4 mm stone in the d istal left ureter with more proximal mild left hydroureteronephrosis. Small amount of dependent milk of calcium in a 1.5 cm low-attenuation left renal cyst. Bowels including the appendix are normal. Dec ompressed bladder and anteverted uterus are unremarkable. No free intraperitoneal gas or fluid. No pa thologically enlarged abdominal or pelvic lymphadenopathy. Moderate lower thoracic and severe lumbar spondylosis. 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 IMPRESSION: 1. 6 x 4 mm distal left ureteral stone with mild left hydroureteronephrosis. 2. Indeterminate 14 x 10 mm left adrenal nodule, decreased from MRI dated 11/18/2022 but unchanged sin ce 03/07/2023 with decrease likely related to result adrenal hemorrhage. Would consider additional 1 y ear follow-up pre and postcontrast MRI. Reviewed, dictated and finalized at location A. IMPRESSION: 1. 6 x 4 mm distal left ureteral stone with mild left hydroureteronephrosis. 2. Indeterminate 14 x 10 mm left adrenal nodule, decreased from MRI dated 2022 but unchanged since 03/07/2023 with decrease likely related to result adren al hemorrhage. Would consider additional 1 year follow-up pre and postcontrast MRI.
[2023-08-30 13:30] VITALS: PULSE 116; RESP 18; TEMP 36.5; O2SAT 99
--- NOTE | 2023-08-30 13:37 | ED.ABDPAIN ---
HPI - Abdominal Pain General Chief Complaint: Abdominal Pain Stated Complaint: abd pain Time Seen by Provider: 08/30/23 13:36 Source: patient Mode of arrival: EMS Limitations: no limitations History of Present Illness HPI narrative: Patient is a 53 y/o female who presents to the ED via EMS with L sided abdominal pain. Patient reports pain began last night in her left lateral abdomen and was fairly severe. Reported having nausea and vomiting associated with pain last night, but states this has since resolved. Pain persisted into today, which prompted her to contact EMS. She room reports history of previous hernia repair several years ago and states pain feels somewhat similar. Unsure what type of hernia. Per records, patient has history of hiatal hernia repair/cl fundoplication in [address] Mathews. Has not taken anything for pain. Denies current nausea, diarrhea, constipation, fevers, dysuria, hematuria. Denies hx of kidney stones, diverticulitis. Related Data Home Medications Medication Instructions Recorded Confirmed vit C 250 mg-vit E 90 mg-zinc 40 1 tablet PO BID 04/09/22 08/19/23 mg-copper 1 [id number]-uelszh capsule (PreserVision AREDS-2) cranberry 1,000 mg capsule 1,000 mg PO DAILY PRN OTHER 09/24/22 08/19/23 diphenhydramine 25 2 tablet PO HS PRN PAIN/INSOMNIA 09/24/22 08/19/23 mg-acetaminophen 500 mg tablet (Tylenol PM Extra Strength) atorvastatin 40 mg tablet 40 mg PO DAILY 05/10/23 08/19/23 cholecalciferol (vitamin D3) 25 25 mcg PO DAILY 05/10/23 08/19/23 mcg (1,000 unit) capsule melatonin 10 mg tablet 10 mg PO HS PRN Insomnia 05/10/23 08/19/23 Allergies Allergy/AdvReac Type Severity Reaction Status Date / Time Sulfa (Sulfonamide Allergy Unknown Rash Verified 08/30/23 13:36 Antibiotics) Review of Systems Review of Systems: CONSTITUTIONAL: Denies fever, chills, or sweats. CARDIOVASCULAR: Denies chest pain. RESPIRATORY: Denies dyspnea. GASTROINTESTINAL: See HPI. GENITOURINARY: Denies dysuria or hematuria. MUSCULOSKELETAL: Denies back pain, extremity pain, myalgia. All systems reviewed & are unremarkable except as noted in HPI and below PMFSH Past Medical History Medical History Depression GERD (gastroesophageal reflux disease) Hiatal hernia HTN (hypertension) Hyperlipidemia Hypocalcemia Hypokalemia Hypothyroidism Lesion of adrenal gland Osteoarthritis Surgical History Surgical History History of Cl fundoplication 11/14/2022 - Laparoscopic Cl fundoplication History of shoulder surgery (~07/23/18) Lt - Subscap Tendon Repair History of shoulder surgery (~06/03/23) Revision of Lt Total Shoulder Arthroplasty with Hardware Removal History of total replacement of left shoulder joint History of total shoulder replacement (~06/24/18) Lt Hx of cholecystectomy Hx of colonoscopy Hx of total knee replacement Right 2014 Left 2015 Family History Family History Sister Family history of migraine headaches Mother Hypertension Other Heart disease Skin cancer Social History Social History Smoking status: Never smoker Alcohol intake: current Alcohol use details: Occasional use Substance use: never Substance use type: does not use Do You Feel Safe in your Home?: Yes Lack of Transportation: YES Lack of Food: Never True Current Housing: I Have Housing Concerned About Future Housing: No Difficulty Paying Gas/Electric Bills: No Difficulty Paying for Meds: No Currently Unemployed: No Education: High School Diploma/GED Difficulty w/ Childcare or Family Care: No Living arrangements: with family Additional living arrangements comments: [facility] Occupation/Education: other Additional occupation/educ
[2023-08-30] MEDS: SODIUM CHLORIDE 0.9% IV 1,000 ML 999 ML IV CONT (14:19)
[2023-08-30 14:25] LABS: Bacteria Urine 1+ /hpf; Non Pathogenic Casts 0-2; RBC Urine >100 /hpf (0-2); Squamous Epithelial Cell Urine Few /hpf (Few)
[2023-08-30 14:30] VITALS: BP 127/63; PULSE 112; RESP 18; O2SAT 99
[2023-08-30 14:30] LABS: Appearance Urine Cloudy (Clear); Bilirubin Urine Negative (Negative); Blood Urine 3+ (Negative); Glucose Urine UA Negative (Negative); Ketones Urine Negative (Negative); Leukocyte Esterase Ur 1+ LEU/UL (Negative); Nitrate Urine Negative (Negative); Protein Urine 1+ mg/dL (Negative); Specific Grav Ur 1.017 (1.001-1.035); Urobilinogen Urine 0.2 mg/dL (<2.0); pH Urine 5.5 (5.0-9.0)
[2023-08-30 14:31] LABS: Color Urine Red (Yellow)
[2023-08-30 14:32] LABS: Add Urine Microscopic? YES
[2023-08-30 15:02] LABS: Basophils Absolute Auto 0.1 K/mm3 (0.0-0.1); Basophils Percent Auto 0.3 % (0.2-1.2); Eosinophils Absolute Auto 0.1 K/mm3 (0-0.3); Eosinophils Percent Auto 0.5 % (0-4.4); Hematocrit 43.5 % (37.0-47.0); Hemoglobin 13.9 g/dL (12.0-15.0); Immature Granulocyte Absolute 0.06 K/mm3 (0.00-0.031); Immature Granulocyte Percent A 0.4 % (0-0.5); Immature Platelet Fraction Pct 6.6 % (0.9-11.2); Lymphocytes Absolute Auto 3.02 K/mm3 (0.9-3.2); Lymphocytes Percent Auto 20.2 % (18.3-44.2); Mean Corpuscular Volume 84.5 fl (80-100); Mean Platelet Volume 11.7 fl (7.4-10.4); Monocytes Absolute Auto 1.3 K/mm3 (0.1-0.6); Monocytes Percent Auto 8.7 % (2.6-8.5); Neutrophils Absolute Auto 10.4 K/mm3 (1.3-6.7); Neutrophils Percent Auto 69.9 % (45.5-73.1); Platelet Count Result 227 k/mm3 (150-375); Red Blood Count 5.15 M/mm3 (4.2-5.4); Red Cell Distribution Width 13.4 % (11.5-14.5); White Blood Count 14.9 K/mm3 (4.5-10.0)
[2023-08-30 15:10] LABS: Alanine Aminotransferase 24 U/L (6-35); Albumin Level 4.8 g/dL (3.5-5.1); Alkaline Phosphatase 107 U/L (38-126); Anion Gap 7 mmol/L (4-12); Aspartate Amino Transferase 32 U/L (14-36); Bilirubin,Total 0.6 mg/dL (0.2-1.3); Blood Urea Nitrogen 27 mg/dL (7-17); Calcium 9.5 mg/dL (8.4-10.2); Carbon Dioxide 28 mmol/L (22-30); Chloride 102 mmol/L (98-107); Estimated CRCL calculation 44 ml/min; Estimated Glomerular Filt Rate 43; Glucose 104 mg/dL (65-110); Lipase 105 U/L (23-300); Sodium 137 mmol/L (137-145)
[2023-08-30 15:16] LABS: Platelet Clumps Present; Platelet Estimate Adequate (Adequate); Schistocytes None Seen
[2023-08-30] MEDS: ONDANSETRON INJ 4 MG/2 ML VIAL IV PUSH (15:57)
[2023-08-30] MEDS: KETOROLAC 15 MG/ML VIAL (*BKC) IV PUSH (15:57)
[2023-08-30] MEDS: TAMSULOSIN HCL 0.4 MG CAPSULE PO (15:57)
[2023-08-30] MEDS: ACETAMINOPHEN 500 MG TABLET 1000 MG PO (15:57)
[2023-08-30 15:58] VITALS: BP 137/76; PULSE 106; RESP 18; O2SAT 100
[2023-08-30 16:18] VITALS: PULSE 103
[2023-08-30 16:55] VITALS: BP 116/63; PULSE 101; RESP 13; O2SAT 99
== END 2023-08-30 17:51 | disposition home or self-care (01) ==
PROVIDERS: Emergency Provider Physician Assistant; PCP Family Medicine
DX: N13.2 Hydronephrosis with renal and ureteral calculous obstruction (principal); E27.8 Other specified disorders of adrenal gland; R82.998 Other abnormal findings in urine; I10 Essential (primary) hypertension; E78.5 Hyperlipidemia, unspecified; E03.9 Hypothyroidism, unspecified; M19.90 Unspecified osteoarthritis, unspecified site; K21.9 Gastro-esophageal reflux disease without esophagitis; K44.9 Diaphragmatic hernia without obstruction or gangrene; Z96.651 Presence of right artificial knee joint; Z90.49 Acquired absence of other specified parts of digestive tract
CPT/HCPCS: 36415; 74176; 80053; 81001; 83690; 85025; 85055; 87077; 87086; 87088; 87186; 96361; 96365; 96375; 99284; A9270; J0696; J1885; J2405; J7030

== ENCOUNTER 2023-09-02 15:08 | Outpatient (CLI) | payer MEDICARE, MEDICAID, SELFPAY ==
[2023-09-02 15:27] LABS: Bilirubin Urine Negative (Negative); Blood Urine 3+ (Negative); Color Urine Light Yellow (Yellow); Glucose Urine UA Negative (Negative); Ketones Urine Negative (Negative); Leukocyte Esterase Ur Trace (Negative); Nitrate Urine Negative (Negative); Protein Urine Negative (Negative); Urobilinogen Urine 0.2 mg/dL (0.2-1.0)
[2023-09-02 15:33] LABS: Creatinine Urine 131.72 mg/dL (40-278); Total Protein Urine Random 23.5 mg/dL (0.0-11.9); Ur Ttl Prot Creatinine Ratio 0.18 mg/mg (0-0.20)
[2023-09-02 15:42] LABS: Add Urine Microscopic? YES; Appearance Urine Cloudy (Clear); RBC Urine 21-50 /hpf (0-2); Squamous Epithelial Cell Urine Few /hpf (Few); WBC Urine 0-3 /hpf (0-3)
[2023-09-02 15:43] LABS: Bacteria Urine 2+ /hpf
== END 2023-09-02 15:09 | disposition home or self-care (01) ==
LOC: CHSLAB 15:11
PROVIDERS: Internal Medicine Nephrology; PCP Nurse Practitioner Family; Visit Provider Nurse Practitioner Family
DX: N25.81 Secondary hyperparathyroidism of renal origin (principal); N18.31 Chronic kidney disease, stage 3a; E55.9 Vitamin D deficiency, unspecified; N39.0 Urinary tract infection, site not specified; I12.9 Hypertensive chronic kidney disease with stage 1 through stage 4 chronic kidney disease, or unspecified chronic kidney disease
CPT/HCPCS: 81001; 82570; 84156; 87086

== ENCOUNTER 2023-09-19 10:50 | Outpatient (CLI) | payer MEDICARE, MEDICAID, SELFPAY ==
[2023-09-19 15:27] LABS: Appearance Urine Clear (Clear); Bilirubin Urine Negative (Negative); Blood Urine Negative (Negative); Color Urine Light Yellow (Yellow); Glucose Urine UA Negative (Negative); Ketones Urine Negative (Negative); Leukocyte Esterase Ur Trace (Negative); Nitrate Urine Negative (Negative); Protein Urine Negative (Negative); Urobilinogen Urine 0.2 mg/dL (0.2-1.0)
[2023-09-19 15:39] LABS: Add Urine Microscopic? YES; Bacteria Urine Trace /hpf; Mucus Urine Moderate /lpf; RBC Urine None seen /hpf (0-2); Squamous Epithelial Cell Urine Few /hpf (Few); WBC Urine None seen /hpf (0-3)
== END 2023-09-19 10:51 | disposition home or self-care (01) ==
LOC: CHSIMG 10:52
PROVIDERS: PCP Nurse Practitioner Family; Visit Provider Nurse Practitioner Family
DX: N39.0 Urinary tract infection, site not specified (principal)
CPT/HCPCS: 81001; 87077; 87086; 87088; 87181; 87186

== ENCOUNTER 2023-10-10 14:43 | Outpatient (CLI) | payer MEDICARE, MEDICAID, SELFPAY ==
--- NOTE | ~2023-10-10 | CT_ITS ---
Non-contrast CT scan of the Abdomen and Pelvis Clinical indication: Left ureteral stone Technique: 2.5 mm axial scans were obtained through the abdomen and pelvis without intravenous or or al contrast. Dose reduction technique was used on this scan by utilizing automated exposure control a nd iterative reconstruction technique. The dose-length product (DLP) was 408.57 mGy-cm. COMPARISON: 08/30/2023 Findings: Images through the lung bases reveal no abnormalities. There is no evidence of renal or ureteral calculi. The kidneys and the ureters are nondilated. The liver, spleen, pancreas, and right adrenal gland appear normal. Stable probable small left adrena l nodule. Cholecystectomy clips are present. There is no aortic aneurysm. There is no evidence of bowel obstruction. Images through the pelvis were performed. There is no evidence of ascites or lymphadenopathy. Urinary bladder unremarkable. No adnexal mass seen. Severe degenerative spondylosis at L3-L4 and L4-L5 prese nt. Impression: No renal, ureteral, or bladder stone. No hydronephrosis. Distal left ureteral stone seen on prior exa m has passed in the interim. Stable left adrenal nodule. Reviewed, dictated and finalized at location M. Impression: No renal, ureteral, or bladder stone. No hydronephrosis. Distal left ureteral s tone seen on prior exam has passed in the interim. Stable left adrenal nodule.
== END 2023-10-10 14:44 | disposition home or self-care (01) ==
LOC: ANHIMG 14:44
PROVIDERS: PCP Nurse Practitioner Family; Visit Provider Physician Assistant
DX: N20.1 Calculus of ureter (principal); E27.8 Other specified disorders of adrenal gland
CPT/HCPCS: 74176

== ENCOUNTER 2024-02-22 10:02 | Outpatient (CLI) | payer MEDICARE, SELFPAY ==
[2024-02-22 10:43] LABS: Albumin Level 3.5 g/dL (3.4-5.0); Anion Gap 9 mmol/L (4-12); Blood Urea Nitrogen 17 mg/dL (7-18); Calcium 8.8 mg/dL (8.5-10.1); Carbon Dioxide 31 mmol/L (21-32); Chloride 101 mmol/L (98-108); Estimated Glomerular Filt Rate 52; Glucose 95 mg/dL (70-99); Osmolality Calculated 293 mOsm/kg (285-295); Phosphorus 3.1 mg/dL (2.6-4.7); Potassium 3.8 mmol/L (3.5-5.1); Sodium 141 mmol/L (136-145)
== END 2024-02-22 10:03 | disposition home or self-care (01) ==
PROVIDERS: PCP Nurse Practitioner Family; Visit Provider Internal Medicine Nephrology
DX: I12.9 Hypertensive chronic kidney disease with stage 1 through stage 4 chronic kidney disease, or unspecified chronic kidney disease (principal); N18.31 Chronic kidney disease, stage 3a; N20.0 Calculus of kidney
CPT/HCPCS: 36415; 80069

== ENCOUNTER 2024-06-10 13:05 | Outpatient (CLI) | payer MEDICARE, MEDICAID, SELFPAY ==
--- NOTE | ~2024-06-10 | XR_ITS ---
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 The acromioclavicular joint space is maintained. 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 No periprosthetic fracture is appreciated. The positioning of the acetabular component and humeral stem are unchanged from 08/19/2023 The visualized portion of the adjacent left lung is clear. IMPRESSION: No periprosthetic fracture or component abnormality, as detailed above. Reviewed, dictated and finalized at location A. OM BUFFER
--- OUTSIDE RECORDS SUMMARY | 2024-06-10 14:07 | XMS_ITS | Clinical Summary ---
Author Organization [facility] Address [address] [place] [id number] Care Team Providers Care Strategic Planning Director Name Role Phone Unavailable Primary Care Provider Unavailabl e Social History Tobacco Use Types Packs/Day Years Used Date Smoking Tobacco: Never Assessed Comments Unknown Sex and Gender Information Value Date Recorded Sex Assigned at Not on file Legal Sex Female 3:31 PM DOORS PREFITTER Gender Identity Not on file Sexual Orientation Not on file Plan of Treatment Health Maintenance Due Date Last Done Comments Cervical Cancer Screening Pa p Smear (Age 30 to 64) Every 3 Years 1970 Colorectal Cancer Screening Colonoscopy (10 Years) 1970 Annual Physical 1973 Hepatitis C 02/12/1988 DTaP, Tdap and Td Vaccines ( 1 - Tdap) 1989 Hepatitis B Vaccines (1 of 3 - 19+ 3-dose series) 1989 Mammogram Screening 2010 Zoster Vaccines (1 of 2) 02/12/2020 COVID-19 Vaccine (2023-2 5 season) 2024 Influenza Adult (#1) 2024 Cervical Cancer Screening Pa p with HPV Testing (Age 30 to 64) Every 5 Years 04/12/2026 04/12/2021 Cervical Cancer Screening with HPV 04/12/2026 Meningococcal B Vaccine Aged Out No l onger eligible based on patient's age to complete this topic Meningococcal Vaccine Aged Out No marcelo stefania eligible based on patient's age to complete this topic Pneumococcal Vaccine: Pediat rics (0 to 5 Years) and At-Risk Patients (6 to 64 Years) Aged Out No longer eligi ble based on patient's age to complete this topic RSV Immunizations Under 20 Months Aged Out No longer eligible based on patient's age to complete this topic Procedures Procedure Name Priority Date/Time Associated Diagnosis Comments HUMAN PAPILLOMAVIRUS, HIGH-RISK TYPES Routine 04/12/2021 8:00 AM DOORS PREFITTER from Last 3 Months or Most Recently Relevant to Health Maintenance Results * HUMAN PAPILLOMAVIRUS, HIGH-RISK TYPES (04/12/2021 8:00 AM DOORS PREFITTER) SPEC DESCRIPTION CERVIX 04/14/20 3:55 PM DOORS PREFITTER [facility] HPV DNA HIGH RISK NEGATIVE NEGATIVE 04/17/2021 2:49 PM DOORS PREFITTER [facility] Comment:SEE CYTOLOGY REPORT 04/12/2021 8:00 AM DOORS PREFITTER Sameera Salazar [employer] PROFESSOR PATHOLOGY/CYTOLOGY ORDERA BLES Final Result [facility] [address] [place] [address], [place] [phone] from Last 3 Months or Most Recently Relevant to Health Maintenance
--- OUTSIDE RECORDS SUMMARY | 2024-06-10 14:07 | XMS_ITS | Clinical Summary ---
Author Organization [facility] Address [address] [facility], [facility] [address] [place] [address] Phone Care Team Providers Care Infection Control Specialist Name Role Phone Provider, Not On File Primary Care Provider Unav ailable Allergies Active Allergy Reactions Criticality Noted Date Comments Sulfa Antibiotics Hives,Itching Medium Medications nystatin (MYCOSTATIN) 426162 UNIT/GM Cream Apply 1 Applicator 2 times daily. Active Diphenhydramine -APAP, sleep, (TYLENOL PM EXTRA STRENGTH PO) Take 1 Tab by mouth nightly. Active hydroCHLOROthia zide 25 MG Tablet Take 25 mg by mouth daily. Active Calcium Carbonate-Vit D-Min (CALCIUM 1200 PO) Take by mouth. Activ e Plant Sterols and Stanols (CHOLESTOFF PO) Take by mouth. Active Ferrous Sulfate (IRON) 325 (65 Fe) MG Tablet Take by mouth. A ctive Acetaminophen (MAPAP) 500 MG Capsule Take 500 mg by mouth every 4 hours as needed. Active potassium chloride (KLOR-CON) 20 MEQ Pack Take 20 mEq by mouth 2 times daily. Active omeprazole (PriLOSEC) 40 MG CAPSULE DELAYED RELEASE Take 1 Cap by mouth daily. 90 Cap 3 0 Active Active Problems No known active problems Immunizations Immunization Administration Dates Next Due Influenza Vaccine 04/06/2013 Influenza Vaccine, Quadrivalent, PF 04/10/2019 TD VACCINE 06/06/2010 Family History Medical History Relation Name Comments Hypertension Mother Other-comment Son Lung disease. Relation Name Status Comments Father Alive Mother Son Social History Tobacco Use Types Packs/Day Years Used Date Smoking Tobacco: Never Smokeless Tobacco: Never Tobacco Cessation:Counseling Given: No Alcohol Use Standard Drinks/Week Comments No 0 (1 standard drink = 0.6 oz pur e alcohol) Comments No Sex and Gender Information Value Date Recorded Sex Assigned at Not on file Legal Sex Female 12:38 AM CDT Gender Identity Not on file Sexual Orientation Not on file Last Filed Vital Signs Vital Sign Reading Time Taken Comments Blood Pressure 124/86 12/10/2019 3:09 PM CDT Pulse 82 12/10/2019 3:09 PM CDT Temperature 36.1 C (97 F) 12/10/2019 3:09 PM CDT Respiratory Rate 18 12/10/2019 3:09 PM CDT Oxygen Saturation 98% 12/10/2019 3: 09 PM CDT Inhaled Oxygen Concentration - - Weight 95.6 kg (210 lb 12.8 oz) 12/10/2019 3:09 PM CDT Height 152.4 cm (5') 04/10/2019 11:[address] Body Mass Index 41.17 04/10/2019 11:[address] Plan of Treatment Health Maintenance Due Date Last Done Comments Hepatitis C Virus (HCV) Screening 1970 TdaP Immunization 1970 Hepatitis B Immunization (1 of 3 - 19+ 3-dose series) 1989 Pap Smear 1991 Cervical Cancer Screening (CCS) 02/12/2000 HPV/Cotest 02/12/2000 Cologuard 02/12/2020 Immunochemical Fecal Occult Blood 02/12/2020 Mammogram 02/12/2020 Pneumococcal Immunization (5 0+ years) (1 of 1 - PCV) 02/12/2020 Zoster Immunization (1 of 2) 02/12/2020 Influenza Immunization (#1) 01/05/202410/2018, 04/06/2013 SARS-COV-2 Immunization ( - season) 2024 Colonoscopy 11/10/2027 11/09/2017, 05/05/2013 Colorectal Cancer Screening 11/10/2027 Respiratory Syncytial Virus (RSV) Immunization (Adult) (1 - 1-dose 75+ series) 2045 11/09/2017, 05/05/2013 DTaP/Tdap/Td Immunization Discontinued 06/06/2010 Meningococcal Immunization (ACWY) Aged Out No longer eligible based on patient's age to complete this topic Pneumococcal Immunization Combined Aged Out No longer eligible based on patient's age to complete this topic Rotavirus Immunization Aged Out No lo nger eligible based on patient's age to complete this topic Procedures Procedure Name Priority Date/Time Associated Diagnosis Comments COLONOSCOPY Routine 11/09/2017 from Last 3 Months or Most Recently Relevant to Health Maintenance Results * HM COLONOSCOPY (11/09/2017) Ricardo Roa DO PROCEDURE/MINOR SURGICAL ORDERA BLES Final Result from Last 3 Months or Most Recently Relevant to Health Maintenance Insurance MEDICAID [place] MEDICARE C [employer] on file Care Teams Infection Control Specialist Relationship Specialty Start Date End Date Provider, Not On File [place] PCP - General 07/17/19
--- OUTSIDE RECORDS SUMMARY | 2024-06-10 14:07 | XMS_ITS | Clinical Summary ---
Author Organization [facility] Healthcare Address [address] [place] [address] Care Team Providers Care Geothermal Operations Engineer Name Role Phone Francisco Lowery MD Primary Care Provider Allergies Active Allergy Reactions Criticality Noted Date Comments Acetaminophen Buspirone Diclofenac Divalproex Lorazepam Propoxyphene Pseudoephedrine Sulfa (Sulfonamide Antibiotics) Hives,Itching Medium Medications hydrALAZINE (APRESOLINE) 25 mg tablet Take 25 mg by mouth Active nabumetone (RELAFEN) 500 mg tablet 02/01/2020 Active diphenhydrAMINE -acetaminophen (TYLENOL PM) 25-500 mg tablet Take 1 tablet by mouth daily Active Nyamyc powder 11/25/2020 Activ e atorvastatin (LIPITOR) 40 mg tablet 12/09/2020 Active Mapap, acetaminophen, 500 mg capsule 12/25/2020 Acti ve famotidine (PEPCID) 20 mg tablet Take 20 mg by mouth nightly 08/26/2021 Active lisinopril-hydr oCHLOROthiazide (ZESTORETIC) 20-25 mg per tablet 11/13/[address] (PROTONIX) 40 mg EC tablet 11/21/2021 Active Active Problems No known active problems Surgical History Surgery Date Site/Laterality Comments SECTION section CHOLECYSTECTOMY KNEE SURGERY CARPAL TUNNEL RELEASE ANKLE SURGERY Medical History Medical History Date Comments Gastroesophageal reflux disease GERD Depression Depression Hypertension Hypertension Family History Medical History Relation Name Comments Other Father 2 Alive and well; Other Mother 2 Alive and well; Relation Name Status Comments Father 1 Alive Father 2 Mother 1 Alive Mother 2 Social History Tobacco Use Types Packs/Day Years Used Date Smoking Tobacco: Never Alcohol Use Standard Drinks/Week Comments Yes 0 (1 standard drink = 0.6 oz pur e alcohol) Comments Unknown Sex and Gender Information Value Date Recorded Sex Assigned at Not on file Legal Sex Female 9:17 AM SERVICE LIAISON REPRESENTATIVE Gender Identity Female 12/23/2020 5:24 PM CDT Sexual Orientation Straight 12/23/2020 5: 24 PM CDT Obstetrics History Last Filed Vital Signs Vital Sign Reading Time Taken Comments Blood Pressure 98/38 12/18/2021 8:43 AM CDT Pulse 88 12/18/2021 8:43 AM CDT Temperature 36.7 C (98 F) 12/30/2020 1:49 PM CDT Respiratory Rate 20 12/18/2021 8:43 AM CDT Oxygen Saturation 98% 12/26/2017 8:24 AM CDT Inhaled Oxygen Concentration - - Weight 94.3 kg (208 lb) 12/18/2021 8:43 AM CDT Height 152.4 cm (5') 12/18/2021 8:43 AM CDT Body Mass Index 40.62 12/18/2021 8:43 AM CDT Plan of Treatment Health Maintenance Due Date Last Done Comments Breast Cancer Screening-Mammogram 1970 Cervical Cancer Screening 1970 Colon Cancer Screening-Colonoscopy 1970 Depression Screening 1970 Hepatitis C Screening 1970 Hepatitis B Screening 02/12/1988 Regular Well Visit/Exam 18-64 02/12/1988 Zoster Vaccine (1 of 2) 02/12/2020 Influenza Vaccine (#1) 2024 0, 04/10/2019, 04/06/2013 DTaP/Tdap/Td Vaccine (2 - Td or Tdap) 01/26/2030 01/27/2020, 06/06/2010 Pneumococcal vaccine <65 Aged Out No longer eligible based on patient's age to complete this topic Insurance MEDICARE SOLUTIONS [facility] MEDICARE SOLUTIONS MEDICARE [place] [id number] MEDICARE SOLUTIONS [id number] Care Teams Geothermal Operations Engineer Relationship Specialty Start Date End Date Francisco Lowery MD PCP - General Family Medicine 01/15/20
--- OUTSIDE RECORDS SUMMARY | 2024-06-10 14:07 | XMS_ITS | Referral Summary ---
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
== END 2024-06-10 13:06 | disposition home or self-care (01) ==
PROVIDERS: PCP Family Medicine; Visit Provider Orthopaedic Surgery
DX: Z96.612 Presence of left artificial shoulder joint (principal)
CPT/HCPCS: 73030

== ENCOUNTER 2024-08-05 15:51 | Outpatient (NON) | payer MEDICARE, MEDICAID, SELFPAY ==
--- OUTSIDE RECORDS SUMMARY | 2024-08-05 16:41 | XMS_ITS | Clinical Summary ---
Author Organization [facility] Address [address] [facility], [facility] [address] [place] [address] Phone Care Team Providers Care Pediatric Psychiatrist Name Role Phone Provider, Not On File Primary Care Provider Unav ailable Allergies Active Allergy Reactions Criticality Noted Date Comments Sulfa Antibiotics Hives,Itching Medium Medications nystatin (MYCOSTATIN) 809407 UNIT/GM Cream Apply 1 Applicator 2 times [...] 3:09 PM CDT Oxygen Saturation 98% 12/10/2019 3:09 PM CDT Inhaled Oxygen Concentration - - Weight 95.6 kg (210 lb 12.8 oz) 12/10/2019 3:09 PM CDT Height 152.4 cm (5') 04/10/2019 11:07 AM DEPARTMENT HEAD Body Mass Index 41.17 04/10/2019 11:07 AM DEPARTMENT HEAD Plan of Treatment Health Maintenance Due Date Last Done Comments Hepatitis C Virus (HCV) Screening 1970 TdaP Immunization 1970 Hepatitis B Immunization (1 of 3 - 19+ 3-dose series) 1989 Cologuard 02/12/2020 Immunochemical Fecal Occult Blood 02/12/2020 Pneumococcal Immunization (5 0+ years) (1 [...] Recently Relevant to Health Maintenance Results * COLONOSCOPY (11/09/2017) Ricardo Roa DO PROCEDURE/MINOR SURGICAL ORDERA BLES Final Result from Last 3 Months or Most Recently Relevant to Health Maintenance Insurance MEDICAID [place] MEDICARE C [employer] on file Care Teams Pediatric Psychiatrist Relationship Specialty Start Date End Date Provider, Not On File [place] PCP - General 07/17/19
--- OUTSIDE RECORDS SUMMARY | 2024-08-05 16:41 | XMS_ITS | Clinical Summary ---
Author Organization [facility] Healthcare Address [address] [place] [address] Care Team Providers Care Trim Master Operator Name Role Phone Francisco Lowery MD [...] Active Active Problems No known active problems Encounters Date Type Department Care Team Description 07/28/2024 7:43 AM CDT - 07/28/2024 11:59 PM CDT Hospital Encounter [facility] [address] [place] [address] [phone] Discharge Disposition: Discharge to home or self care 07/28/2024 7:42 AM CDT - 07/28/2024 11:59 PM CDT Hospital Encounter 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 There will be no report generated by a [facility] Radiologist. Narrative [email or web address] - 07/28/2024 7:43 AM CDT EXAMINATION: Images For Reference Purposes Only us Mason Davis MD IMG CT PROCEDURES Final Re sult Performing Organization Address [facility] Co de Phone Number [email or web address] * Neuro CT Outside Reference (07/28/2024 7:42 AM CDT) Impressions [email or web address] - 07/28/2024 7:42 AM CDT These images are for Reference purposes only and have not been reviewed by [facility] Radiology. There will be no report generated by a [facility] Radiologist. Narrative [email or web address] - 07/28/2024 7:42 AM CDT EXAMINATION: Images For Reference Purposes Only Mason Davis MD IMG CT PROCEDURES Final Re sult Performing Organization Address [facility] Co de Phone Number [email or web address] from Last 3 Months Insurance MEDICARE ADVANTAGE [place] [id number] [facility] MEDICARE ADVANTAGE [place] [id number] MEDICARE [facility] Address: [address] [address] [place] [address] [facility] MEDICARE ADVANTAGE [employer] Care Teams Trim Master Operator Relationship Specialty Start Date End Date Francisco Lowery MD PCP - General Family Medicine 01/15/20
--- OUTSIDE RECORDS SUMMARY | 2024-08-05 16:41 | XMS_ITS | Continuity of Care Document ---
Author Organization [facility] [place] Address [address] [place] [address] [address] [place] [address] Phone Care Team Providers Care Nuclear Power Reactor Operator Name Role Phone Cosme PT,MPT,ATC, Gilbert [...] STIMULATION UNATT Mobility: Walking And Moving Limitations -[facility] Mobility: Walking And Moving Limitation- Goal [...] Diagnoses Date Provider Providers Copied on Encounter [facility] [facility], [place], [place], [id number], [place] tel:[phone] [place] Presence of left artificial shoulder joint 9 [place], [place], [place]. Referring Provider: Say Kolb , [address], [place], [address]. tel:[phone] [facility], [place], [place], [address], [place] tel:[phone] [place] Presence of left artificial shoulder joint [place]-2 9 Cosme Gilbert. , [place], [place]. Referring Provider: Raad Rock [facility] [address], [place], [facility]. tel: [facility], [address], [place], [place], [address], [place] tel:[phone] [place] Presence of left artificial shoulder joint [place]-1 9- 9 Cosme Gilbert. , [place], [place]. Referring Provider: Raad Rock [facility] [address], [place], [facility]. tel: [facility], [address], [place], [place], [address], [place] tel:[phone] [place] Presence of left artificial shoulder joint [place]-1 9 Cosme [place]. , [place], [place]. Referring Provider: Raad Rock [facility] [address], [place], [facility]. tel: [facility], [address], [place], [place], [address], [place] tel:[phone] [place] Presence of left artificial shoulder joint [place]-1 9 Cosme [place]. , [place], [place]. Referring Provider: Raad Rock [facility] [address], [place], [facility]. tel: [facility], [address], [place], [place], [address], [place] tel:[phone] [place] Presence of left artificial shoulder joint [place]-1 9 Cosme Gilbert. , [place], [place]. Referring Provider: Raad Rock [facility] [address], [place], [facility]. tel: [facility], [place], [place], [address], [place] tel:[phone] [place] Presence of left artificial shoulder joint [place]-1 0-201 9 [place]. , [place], [place]. Referring Provider: Raad Rock [facility] [address], [place], [facility]. tel:[phone] [facility], [address], [place], [place], [address], [place] tel:[phone] [place] Presence of left artificial shoulder joint [place]-0 7-201 9 [place]. , [place], [place]. Referring Provider: Raad Rock [facility] [address], [place], [facility]. tel: [facility] [address], [place], [place], [address], [place] tel:[phone] [place] Presence of left artificial shoulder joint [place]-0 5-201 9 [facility] , [place]. Referring Provider: Raad Rock [facility] [address], [place], [facility]. tel: [facility] [address], [place], [place], [address], [place] tel:[phone] [place] Presence of left artificial shoulder joint [place]-0 3-201 9 [facility] , [place]. Referring Provider: Raad Rock [facility] [address], [place], [facility]. tel: [facility] [address], [place], [place], [address], [place] tel:[phone] [place] Presence of left artificial shoulder joint May-2 9-201 9 Niederhoffer Larissa. . Referring Provider: Raad Rock [facility] [address], [place], [facility]. tel: [facility], [place], [place], [address], [place] tel:[phone] [place] Presence of left artificial shoulder joint May-2 2-201 9 Niederhoffer Larissa. . Referring Provider: Raad Rock [facility] [address], [place], [facility]. tel:[phone] [facility] [address] [facility], [place], [place], [address], [place] tel:[phone] [place] Presence of left artificial shoulder joint September-2 0- 9 [facility] , [place]. Referring Provider: Raad Rock [facility] [address], [place], [facility]. tel:[phone] [facility] [address], [place], [place], [address], [place] tel:[phone] [place] Presence of left artificial shoulder joint 9 [facility] , [place]. Referring Provider: Raad Rock [facility] [address], [place], [facility]. tel:[phone] [facility] [address] [facility] 300, [place], [place], [address], [place] tel:[phone] [place] Presence of left artificial shoulder joint 0 9 [facility] , [place]. Referring Provider: Raad Rock [facility] [address], [place], [facility]. tel:[phone] [facility] [address] [facility] [address], [place], [place], [address], [place] tel:[phone] [place] Pain in left shoulderStiff ness of left shoulder, not elsewhere classifiedOth symptoms and signs involving the musculoskelet al systemAbnorma l postureUnspec ified osteoarthriti s, unspecified site 0 201 8 [facility] , [place]. Referring Provider: Raad Rock [facility] [address], [place], [facility]. tel:[phone] [facility] [facility], [place], [place], [address], [place] tel:[phone] [place] Pain in left shoulderStiff ness of left shoulder, not elsewhere classifiedOth symptoms and signs involving the musculoskelet al systemAbnorma l postureUnspec ified osteoarthriti s, unspecified site 8 [place], [place]. Referring Provider: Raad Rock [facility] [address], [place], [facility]. tel:[phone] [facility] [address] [address], [place], [place], [address], [place] tel:[phone] [place] Pain in left shoulderStiff ness of left shoulder, not elsewhere classifiedOth symptoms and signs involving the musculoskelet al systemAbnorma l postureUnspec ified osteoarthriti s, unspecified site 8 Guido Morrison. . Referring Provider: Raad Rock [facility] [address] , [place], [facility]. tel:[phone] [facility] [address] [place] [address] [address], [place], [place], [address], [place] tel:[phone] [place] No Information 2 5 Luis Alberto Savannah. [address] [place] [address], [address] [place] [address], [facility], [place]. tel:[phone] Referring Provider: Raad Rock [facility] [address], [place], [facility]. tel:[phone] [facility] [address] [facility] 300, [place], [place], [address], [place] tel:[phone] [place] No Information 2 5 Luis Alberto Sav[place]. [address] [facility], [address], [place], [facility], [place]. tel:[phone] Referring Provider: Raad Rock [facility] [address], [place], [facility]. tel:[phone] [facility] [facility], [place], [place], [address], [place] tel:[phone] [place] No Information 2 0 5 Luis Alberto Savannah. [address] [place] [address], [address], [place], [address], [place]. tel:[phone] Referring Provider: Say Kolb [address] [place] [address] [address], [place], [address]. tel:[phone], [place], [place], [address], [place] tel:[phone] [place] No Information Luis Alberto Savannah. [address] [place] [address], [address], [place], [address], [place]. tel:[phone] Referring Provider: Say Kolb [address] [place] [address] 162 [address], [place], [address]. tel:[phone] [address], [place], [place], [address], [place] tel:[phone] [place] No Information Luis Alberto Savannah. [address] [place] [address], [address], [place], [address], [place]. tel:[phone] Referring Provider: Say Kolb [address] [place] [address] 162 [address], [place], [address]. tel:[phone] [address], [place], [place], [address], [place] tel:[phone] [place] No Information 5 Luis Alberto Savannah. [address] [place] [address], [address], [place], [address], [place]. tel:[phone] Referring Provider: Say Kolb [facility] [address], [place], [address]. tel:[phone] [address], [place], [place], [address], [place] tel:[phone] [place] No Information 5 Luis Alberto Nuñez. [address] [facility], [address], [place], [address], [place]. tel:[phone] Referring Provider: Say Kolb [address] [place] [address] 162 [address], [place], [address]. tel:[phone], [place], [place], [address], [place] tel:[phone] [place] No Information 0 5 Luis Alberto Nuñez. [address] [facility], [address], [place], [facility], [place]. tel:[phone] Referring Provider: Say Kolb [address] [place] [address] 162 [address], [place], [address]. tel:[phone], [place], [place], [address], [place] tel:[phone] [place] No Information 5 Luis Alberto Nuñez. [address] [place] [address], [address], [place], [facility], [place]. tel:[phone] Referring Provider: Say Kolb [address] [place] [address] 162 [address], [place], [address]. tel:[phone] [address], [place], [place], [address], [place] tel:[phone] [place] Pain in joint involving lower leg Dec-0 3 5 Luis Alberto Savannah. [address] [place] [address], [address], [place], [address], [place]. tel:[phone] Referring Provider: Raad Rock [facility] [address], [place], [address]. tel:[phone] [address], [place], [place], [address], [place] tel:[phone] [place] No Information 4 Cordovaelsi Ortegai. [address] [place] [address], [address], [place], [facility], [place]. tel:[phone] Referring Provider: Say Kolb [address] [place] [address] 162 [address], [place], [address]. tel:[phone] [facility], [address] [place] [address] [address], [place], [place], [address], [place] tel:[phone] [place] No Information Oct-0 6-201 4 Cordova Mayelin. [address] [place] [address], [address], [place], [facility], . tel:[phone] Referring Provider: Say Kolb [address] [place] [address], [facility]. tel:[phone] [facility] [address] [place], [place] [address], [place], [place], [address], tel:[phone] [place] No Information Oct-0 3-201 4 Cordova Mayelin. [address] [place] [address], [address], [place], [facility], . tel:[phone] Referring Provider: Say Klob [address] [place] [address] [place] [address], [facility]. tel:[phone] [facility] [address] [place], [place] [address], [place], [place], [address], tel:[phone] [place] No Information Sep-2 9-201 4 Cordova Mayelin. [address] [place] [address], [address], [place], [facility], . tel:[phone] Referring Provider: Say Kolb [address] [place] [address] 162 [address], [place], [facility]. tel:[phone] [address], [place], [place], [address], [place] tel:[phone] [place] No Information Sep-2 6-201 4 Cordova Mayelin. [address] [place] [address], [address], [place], [facility], . tel:[phone] Referring Provider: Say Kolb [address] [place] [address] 162 [address], [place], [facility]. tel:[phone] [facility] [address] [place], [place] [address], [place], [place], [address], tel:[phone] [place] No Information Sep-2 2-201 4 Cordova Mayelin. [address] [place] [address], [address], [place], [address], [place]. tel:[phone] Referring Provider: Say Kolb [address] [place] [address] 162 [address] , [place], [facility]. tel:[phone] [address], [place], [place], [address], [place] tel:[phone] [place] No Information Sep-1 6-201 4 Cordova Mayelin. [address] [place] [address], [address], [place], [facility], [place]. tel:[phone] Referring Provider: Raad Rock [facility] [address] [place] [address], [facility]. tel:[phone] [address], [place], [place], [address], [place] tel:[phone] [place] No Information Sep-1 2-201 4 Cordova Mayelin. [address] [place] [address], [address], [place], [facility], [place]. tel:[phone] Referring Provider: Raad Rock [facility] [address], [place], [address]. tel:[phone] [address], [place], [place], [address], [place] tel:[phone] [place] No Information Sep-0 8-201 4 Cordova Mayelin. [address] [place] [address], [address], [place], [address], [place]. tel:[phone] Referring Provider: Ela Rock[address] [place] [address] [address] [place] [address], [address]. tel:[phone] [address], [place], [place], [address], [place] tel:[phone] [place] No Information Sep-0 5-201 4 Cordova Mayelin. [address] [place] [address], [address], [place], [address], [place]. tel:[phone] Referring Provider: Say Kolb [facility] [address], [place], [address]. tel:[phone] [address], [place], [place], [address], tel:[phone] [place] No Information Sep-0 3-201 4 Cordova Mayelin. [address] [place] [address], [address], [place], [facility], [place]. tel:[phone] Referring Provider: Say Kolb [address] [place] [address] 162 [address], [place], [address]. tel:[phone] [address], [place], [place], [address], tel:[phone] [place] No Information Aug-2 8-201 4 Cordova Mayelin. [address] [place] [address], [address], [place], [facility], [place]. tel:[phone] Referring Provider: Say Kolb [address] [place] [address] 162 [address], [place], [address]. tel:[phone] [address], [place], [place], [address], [place] tel:[phone] [place] No Information Aug-2 6-201 4 Cordova Mayelin. [address] [place] [address], [address], [place], [facility], . tel:[phone] Referring Provider: Say Kolb [address] [place] [address] 162 [address], [place], [address]. tel:[phone] [address], [place], [place], [address], [place] tel:[phone] [place] No Information Aug-2 5-201 4 Cordova Mayelin. [address] [place] [address], [address], [place], [facility], [place]. tel:[phone] Referring Provider: Say Kolb [address] [place] [address] 162 [address], [place], [address]. tel:[phone] [facility] [address], [place], [place], [address], [place] tel:[phone] [place] No Information 4 Cordova Mayelin. [address] [place] [address], [address], [place], [facility], . tel:[phone] Referring Provider: Say Kolb [address] [place] [address] [address], [place], [facility]. tel:[phone], [place], [place], [address], [place] tel:[phone] [place] No Information 4 Cordova Mayelin. [address] [place] [address], [address], [place], [facility], . tel:[phone] Referring Provider: Say Kolb [address] [place] [address] [place] [address], [facility]. tel:[phone] [facility] [address] [place], [place] [address], [place], [place], [address], [place] tel:[phone] [place] No Information 4 Cordova Mayelin. [address] [place] [address], [address], [place], [facility], [place]. tel:[phone] Referring Provider: Say Kolb [address] [place] [address] [address], [place], [address]. tel:[phone] [address], [place], [place], [address], [place] tel:[phone] [place] No Information 4 Cordova Mayelin. [address] [place] [address], [address], [place], [facility], . tel:[phone] Referring Provider: Say Kolb [address] [place] [address] [address], [place], [facility]. tel:[phone] [facility] [address] [place], [place] [address], [place], [place], [address], [place] tel:[phone] [place] No Information 2 4 Cordova Mayelin. [address] [place] [address], [address], [place], [facility], . tel:[phone] Referring Provider: Raad Rock [address], [facility]. tel:[phone], [address], tel:[phone] [place] No Information 4 Cordova Mayelin. [address] [place] [address], [address], [place], [facility], . tel:[phone] Referring Provider: Ela Rock[address] [place] [address], [facility]. tel:[phone], [address], tel:[phone] [place] No Information 201 4 Cordova Mayelin. [address] [place] [address], [address], [place], [facility], . tel:[phone] Referring Provider: Raad Rock [address], [facility]. tel:[phone], [address], tel:[phone] [place] Pain in joint involving ankle and foot 201 4 Cordova Mayelin. [address] [place] [address], [address], [place], [facility], . tel:[phone] Referring Provider: Raad Rock [address] [address] [place] [address], [facility]. tel:[phone] Family History Family Member Type Diagnosis Age At Onset No Information Payers Payer name Insurance type Covered alliance party ID Sloane meier(s) [employer] CI [id number] Social History Type Description Quantity Date Captured [...]
--- OUTSIDE RECORDS SUMMARY | 2024-08-05 16:41 | XMS_ITS | Referral Summary ---
Author Organization [facility] Healthcare Address [address] [place] [address] Care Team Providers Care Ultrasound Sonographer Name Role Phone Francisco Lowery MD Primary Care Provider Encounters Date Type Department Care Team Description 07/28/2024 7:43 AM CDT - 07/28/2024 11:59 PM CDT Hospital Encounter [facility] ([facility]) [address] [place] [address] Discharge Disposition: Discharge to home or self care 07/28/2024 7:42 AM CDT - 07/28/2024 11:59 PM CDT Hospital Encounter [facility] ([facility]) [address] [place] [address] Discharge Disposition: Discharge to home or self care from Last 3 Months Allergies Active Allergy Reactions Criticality Noted Date [...] on file 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 There will be no report generated by a [facility] Radiologist. Narrative [facility]_PACS[facility] - 07/28/2024 7:43 AM CDT EXAMINATION: Images For Reference Purposes Only us Mason Davis MD IMG CT PROCEDURES Final Re sult Performing Organization Address [facility] Co de Phone Number [facility] * Neuro CT Outside Reference (07/28/2024 7:42 AM CDT) Impressions [facility] - 07/28/2024 7:42 AM CDT These images are for Reference purposes only and have not been reviewed by [facility] Radiology. There will be no report generated by a [facility] Radiologist. Narrative [facility] - 07/28/2024 7:42 AM CDT EXAMINATION: Images For Reference Purposes Only us Mason Davis MD IMG CT PROCEDURES Final Re sult Performing Organization Address [facility] Co de Phone Number [facility] from Last 3 Months Insurance [facility] [address] [facility] MEDICARE ADVANTAGE MEDICARE [facility] Address: [address] [address] [place] [address] [facility] [place] [address] Care Teams Ultrasound Sonographer Relationship Specialty Start Date End Date Francisco Lowery MD PCP - General Family Medicine 01/15/20
--- OUTSIDE RECORDS SUMMARY | 2024-08-05 16:41 | XMS_ITS | Clinical Summary ---
Author Organization [facility] Address [address] [place] [address] Care Team Providers Care Shook Splicer Name Role Phone Unavailable Primary Care Provider Unavailabl e Social History Tobacco Use Types Packs/Day Years Used Date Smoking Tobacco: Never Assessed Comments Unknown Sex and Gender Information Value Date Recorded Sex Assigned at Not on file Legal Sex Female 3:31 PM CASH GRAIN GROWER Gender Identity Not on file Sexual Orientation [...] 02/12/2020 COVID-19 Vaccine (2023-2 5 season) 2024 Cervical Cancer Screening Pa p with [...] PAPILLOMAVIRUS, HIGH-RISK TYPES Routine 04/12/2021 8:00 AM CASH GRAIN GROWER from Last 3 Months or Most Recently Relevant to Health Maintenance Results * HUMAN PAPILLOMAVIRUS, HIGH-RISK TYPES (04/12/2021 8:00 AM CASH GRAIN GROWER) SPEC DESCRIPTION CERVIX 04/14/20 21 3:55 PM CASH GRAIN GROWER [facility] HPV DNA HIGH RISK NEGATIVE NEGATIVE 04/17/2021 2:49 PM CASH GRAIN GROWER [facility] Comment:SEE CYTOLOGY REPORT 04/12/2021 8:00 AM CASH GRAIN GROWER Sameera Salazar HYDROMETEOROLOGICAL TECHNICIAN PATHOLOGY/CYTOLOGY ORDERA BLES Final Result [facility] [address] [place] [address], from Last 3 Months or Most Recently Relevant to Health Maintenance
== END 2024-08-05 15:52 | disposition home or self-care (01) ==
LOC: CHSLAB 15:52
PROVIDERS: PCP Family Medicine; Visit Provider Family Medicine
DX: L72.0 Epidermal cyst (principal)
CPT/HCPCS: 88305

== ENCOUNTER 2024-08-21 10:21 | Outpatient (CLI) | payer MEDICARE, SELFPAY ==
--- OUTSIDE RECORDS SUMMARY | 2024-08-21 10:29 | XMS_ITS | Clinical Summary ---
Author Organization [facility] Address [address] [facility], [facility] [address] [place] [address] Phone Care Team Providers Care Cigar Brander Name Role Phone Provider, Not On File Primary Care Provider Unav ailable Allergies Active Allergy Reactions Criticality Noted Date Comments Sulfa Antibiotics Hives,Itching Medium Medications nystatin (MYCOSTATIN) 189266 UNIT/GM Cream Apply 1 Applicator 2 times [...] Height 152.4 cm (5') 04/10/2019 11:07 AM INFORMATICS NURSE SPECIALIST Body Mass Index 41.17 04/10/2019 11:07 AM INFORMATICS NURSE SPECIALIST Plan of Treatment Health Maintenance Due Date [...] MEDICARE C [employer] on file Care Teams Cigar Brander Relationship Specialty Start Date End Date Provider, Not On File [place] PCP - General 07/17/19
--- OUTSIDE RECORDS SUMMARY | 2024-08-21 10:29 | XMS_ITS | Clinical Summary ---
Author Organization [facility] Address [address] [place] [address] Care Team Providers Care Insurance Verify Rep Name Role Phone Unavailable Primary Care Provider Unavailabl e Social History Tobacco Use Types Packs/Day Years Used Date Smoking Tobacco: Never Assessed Comments Unknown Sex and Gender Information Value Date Recorded Sex Assigned at Not on file Legal Sex Female 3:31 PM CARDER BLANKETS Gender Identity Not on file Sexual Orientation [...] 5 Years) and At-Risk Patients (6 to 49 Years) Aged Out No longer eligi ble based on patient's age to complete this topic RSV Immunizations Under 20 Months Aged Out No longer eligible based on patient's age to complete this topic Procedures Procedure Name Priority Date/Time Associated Diagnosis Comments HUMAN PAPILLOMAVIRUS, HIGH-RISK TYPES Routine 04/12/2021 8:00 AM CARDER BLANKETS from Last 3 Months or Most Recently Relevant to Health Maintenance Results * HUMAN PAPILLOMAVIRUS, HIGH-RISK TYPES (04/12/2021 8:00 AM CARDER BLANKETS) SPEC DESCRIPTION CERVIX 04/14/20 21 3:55 PM CARDER BLANKETS [facility] HPV DNA HIGH RISK NEGATIVE NEGATIVE 04/17/2021 2:49 PM CARDER BLANKETS [facility] Comment:SEE CYTOLOGY REPORT 04/12/2021 8:00 AM CARDER BLANKETS Sameera Salazar HARDSCAPE FOREMAN PATHOLOGY/CYTOLOGY ORDERA BLES Final Result [facility] [address] [place] [address], from Last 3 Months or Most Recently Relevant to Health Maintenance
--- OUTSIDE RECORDS SUMMARY | 2024-08-21 10:29 | XMS_ITS | Clinical Summary ---
Author Organization [facility] Address [address] [place] [address] Care Team Providers Care Gear Lapper Name Role Phone Francisco Lowery MD Primary [...] - 07/28/2024 11:59 PM CDT Hospital Encounter [facility] [address] [place] [address] [id number] Discharge Disposition: Discharge to home or self care 07/28/2024 7:42 AM CDT - 07/28/2024 11:59 PM CDT Hospital Encounter [facility]) [address] [place] [address] Discharge Disposition: Discharge to home or self [...] on file Legal Sex Female 9:17 AM PRODUCT TEST SPECIALIST Gender Identity Female 12/23/2020 5:24 PM CDT [...] Vaccine (1 of 2) 02/12/2020 Influenza Vaccine (Season Ended) 2025 02/04/2020, 04/10/2019, 04/06/2013 DTaP/Tdap/Td Vaccine (2 - Td [...] only and have not been reviewed by [facility]. There will be no report generated by a [facility] Radiologist. Narrative RAD_PACS[facility] - 07/28/2024 7:43 AM CDT EXAMINATION: Images For Reference Purposes Only us Mason Davis MD IMG CT PROCEDURES Final Re sult Performing Organization Address [facility] Co de Phone Number [email or web address] * Neuro CT Outside Reference (07/28/2024 7:42 AM CDT) Impressions [facility] - 07/28/2024 7:42 AM CDT These images are for Reference purposes only and have not been reviewed by [facility]. There will be no report generated by a [facility] Radiologist. Narrative RAD_PACS[facility] - 07/28/2024 7:42 AM CDT EXAMINATION: Images For Reference Purposes Only Mason Davis MD IMG CT PROCEDURES Final Re sult Performing Organization Address [facility] Co de Phone Number [facility] from Last 3 Months Insurance MEDICARE ADVANTAGE [place] [id number] [facility] MEDICARE ADVANTAGE [place] [id number] MEDICARE [facility] Address: [address] [address] [place] [address] [facility] MEDICARE ADVANTAGE [employer] Care Teams Gear Lapper Relationship Specialty Start Date End Date Francisco Lowery MD PCP - General Family Medicine 01/15/20
--- OUTSIDE RECORDS SUMMARY | 2024-08-21 10:29 | XMS_ITS | Referral Summary ---
Author Organization [facility] Healthcare Address [address] [place] [address] Care Team Providers Care Parts Analyst Name Role Phone Francisco Lowery MD Primary Care Provider Encounters Date Type Department Care Team Description 07/28/2024 7:43 AM CDT - 07/28/2024 11:59 PM CDT Hospital Encounter [facility] ([facility]) [address] [place] [address] Discharge Disposition: Discharge to home or self care 07/28/2024 7:42 AM CDT - 07/28/2024 11:59 PM CDT Hospital Encounter [facility] ([facility]) [address] [place] [address] Discharge Disposition: Discharge to home or self [...] on file Legal Sex Female 9:17 AM HOUSECLEANER Gender Identity Female 12/23/2020 5:24 PM CDT [...] only and have not been reviewed by [facility]. There will be no report generated by a [facility] Radiologist. Narrative RAD_PACS_[facility] - 07/28/2024 7:43 AM CDT EXAMINATION: Images For Reference Purposes Only us Mason Davis MD IMG CT PROCEDURES Final Re sult Performing Organization Address [facility] Co de Phone Number [facility] * Neuro CT Outside Reference (07/28/2024 7:42 AM CDT) Impressions [facility] - 07/28/2024 7:42 AM CDT These images are for Reference purposes only and have not been reviewed by [facility]. There will be no report generated by a [facility] Radiologist. Narrative [facility] - 07/28/2024 7:42 AM CDT EXAMINATION: Images For Reference Purposes Only us Mason Davis MD IMG CT PROCEDURES Final Re sult Performing Organization Address [facility] Co de Phone Number [facility] from Last 3 Months Insurance [facility] MEDICARE ADVANTAGE [facility]IC[facility] Address[facility] [address] [place] [address] [facility] MEDICARE ADVANTAGE MEDICARE [facility] MEDICARE ADVANTAGE [employer] Care Teams Parts Analyst Relationship Specialty Start Date End Date Francisco Lowrey MD PCP - General Family Medicine 01/15/20
[2024-08-21 10:39] LABS: Total Protein Urine Random 23.9 mg/dL (0.0-11.9); Ur Ttl Prot Creatinine Ratio 0.17 mg/mg (0-0.20)
[2024-08-21 10:56] LABS: Albumin Level 3.4 g/dL (3.4-5.0); Anion Gap 7 mmol/L (4-12); Blood Urea Nitrogen 19 mg/dL (7-18); Calcium 8.6 mg/dL (8.5-10.1); Carbon Dioxide 30 mmol/L (21-32); Chloride 106 mmol/L (98-108); Estimated Glomerular Filt Rate 49; Glucose 89 mg/dL (70-99); Osmolality Calculated 297 mOsm/kg (285-295); Phosphorus 3.9 mg/dL (2.6-4.7); Potassium 4.4 mmol/L (3.5-5.1); Sodium 143 mmol/L (136-145)
[2024-08-22 13:23] LABS: Vitamin D 25 Hydroxy 35 ng/mL (30-100)
[2024-08-23 07:19] LABS: Parathyroid Intact 41 pg/mL (16-77)
== END 2024-08-21 10:22 | disposition home or self-care (01) ==
LOC: CHSLAB 10:22
PROVIDERS: PCP Family Medicine; Visit Provider Internal Medicine Nephrology
DX: I12.9 Hypertensive chronic kidney disease with stage 1 through stage 4 chronic kidney disease, or unspecified chronic kidney disease (principal); N18.31 Chronic kidney disease, stage 3a; N25.81 Secondary hyperparathyroidism of renal origin; E55.9 Vitamin D deficiency, unspecified
CPT/HCPCS: 36415; 80069; 82306; 82570; 83970; 84156

== ENCOUNTER 2024-09-05 09:03 | Outpatient (CLI) | payer MEDICARE, MEDICAID, SELFPAY ==
--- NOTE | ~2024-09-05 | MR_ITS ---
EXAMINATION: MR abdomen wo/w con DATE: 09/05/2024 09:53 INDICATION: Evolving left adrenal nodule. TECHNIQUE: Magnetic resonance imaging (MRI) of the abdomen was performed without and with 20 mL Multi odilon intravenous contrast. Sequences included coronal and axial T2-weighted SS-FSE, axial FS 2D-FIES TA, coronal and axial dual-echo T1-weighted FSPGR, axial T1-weighted LAVA, and axial STIR FSE. Postco ntrast axial T1-weighted LAVA images were obtained in a time course. Postcontrast coronal T1-weighted LAVA images were obtained. COMPARISON: MR dated 03/07/2023 and 11/18/[address] dated 10/10/2023 FINDINGS: Heart size is normal. No pericardial or pleural effusion. Unchanged mild intra and extra hepatic bili zoey ductal dilation likely related to prior cholecystectomy. No significant change in a 3 cm T2 hyper intense hemangioma with lobular margins in the left hepatic lobe with peripheral enhancement which fi lls in on delayed imaging, better appreciated on the prior studies. No interval change in a couple sm all T2 hyperintense nonenhancing splenic cysts. Pancreas and right adrenal gland are normal. No inter everett change in appearance of the left gland since 03/07/2023 with 1.1 x 1 cm nodule at the confluence o f the mildly thickened appearing medial and lateral limbs. Given the interval stability this could re present an adenoma or residual scarring related to an earlier since resolved left adrenal hematoma se en on study dated 11/18/2022. There are bilateral T2 hyperintense nonenhancing renal cysts the larger on the left measuring 1.8 cm. Visualized portions of bowels are unremarkable. Severe lumbar spondylos is with low signal intensity sclerotic Modic type III endplate changes at L3-L4. IMPRESSION: 1. No interval change since 03/07/2023 in a likely benign 1.1 x 1.0 cm left adrenal nodule which could represent either an adenoma or residual scarring at the site of a prior, now resolved left adrenal h ematoma. Reviewed, dictated and finalized at location A. IMPRESSION: 1. No interval change since 03/07/2023 in a likely benign 1.1 x 1.0 cm left adre nal nodule which could represent either an adenoma or residual scarring at the site of a prior, now resolved left adrenal hematoma.
--- OUTSIDE RECORDS SUMMARY | 2024-09-05 16:02 | XMS_ITS | Clinical Summary ---
Author Organization [facility] Address [address] [facility] [address] [place] [address] Phone Care Team Providers Care Diagrammer And Seamer Name Role Phone Provider, Not On File Primary Care Provider Unav ailable Allergies Active Allergy Reactions Criticality Noted Date Comments Sulfa Antibiotics Hives,Itching Medium Medications nystatin (MYCOSTATIN) 033881 UNIT/GM Cream Apply 1 Applicator 2 times [...] Height 152.4 cm (5') 04/10/2019 11:07 AM RECONNAISSANCE MAN Body Mass Index 41.17 04/10/2019 11:07 AM RECONNAISSANCE MAN Plan of Treatment Health Maintenance Due Date [...] MEDICARE C [employer] on file Care Teams Diagrammer And Seamer Relationship Specialty Start Date End Date Provider, Not On File [place] PCP - General 07/17/19
--- OUTSIDE RECORDS SUMMARY | 2024-09-05 16:02 | XMS_ITS | Clinical Summary ---
Author Organization [facility] Address [address] [place] [address] Care Team Providers Care Sap Data Analyst Name Role Phone Unavailable Primary Care Provider Unavailabl e Social History Tobacco Use Types Packs/Day Years Used Date Smoking Tobacco: Never Assessed Comments Unknown Sex and Gender Information Value Date Recorded Sex Assigned at Not on file Legal Sex Female 3:31 PM GENERAL CAR YARD SUPERVISOR Gender Identity Not on file Sexual Orientation [...] 19+ 3-dose series) 1989 Mammogram Screening 2010 Pneumococcal Vaccine: 50+ Ye ars (1 of 1 - PCV) 02/12/2020 Zoster Vaccines (1 of 2) 02/12/2020 COVID-19 Vaccine ( - 2023-2 5 season) 2024 Cervical Cancer Screening Pa [...] PAPILLOMAVIRUS, HIGH-RISK TYPES Routine 04/12/2021 8:00 AM GENERAL CAR YARD SUPERVISOR from Last 3 Months or Most Recently Relevant to Health Maintenance Results * HUMAN PAPILLOMAVIRUS, HIGH-RISK TYPES (04/12/2021 8:00 AM GENERAL CAR YARD SUPERVISOR) SPEC DESCRIPTION CERVIX 04/14/20 21 3:55 PM GENERAL CAR YARD SUPERVISOR [facility] HPV DNA HIGH RISK NEGATIVE NEGATIVE 04/17/2021 2:49 PM GENERAL CAR YARD SUPERVISOR [facility] Comment:SEE CYTOLOGY REPORT 04/12/2021 8:00 AM GENERAL CAR YARD SUPERVISOR Sameera Salazar REAL ESTATE LOAN OFFICER PATHOLOGY/CYTOLOGY ORDERA BLES Final Result [facility] [address] [place] [address], [place] [phone] from Last 3 Months or Most Recently Relevant to Health Maintenance
--- OUTSIDE RECORDS SUMMARY | 2024-09-05 16:02 | XMS_ITS | Continuity of Care Document ---
Author Organization [facility] Address [address] [place] [address] [address] [place] [address] Phone Care Team Providers Care Equipment Scheduler Name Role Phone Cosme PT,MPT,ATC, Gilbert Unavailable [...] STIMULATION UNATT Mobility: Walking And Moving Limitations -[facility] Mobility: Walking And Moving Limitation- Goal [...] Diagnoses Date Provider Providers Copied on Encounter [facility] [facility], [place], [place], [address], [place] tel:[phone] [place] Presence of left artificial shoulder joint 9 [place], [place], [place]. Referring Provider: Say Kolb , [address], [place], [address]. tel:[phone] [facility], [place], [place], [address], [place] tel:[phone] [place] Presence of left artificial shoulder joint [place]-2 9 Csome Gilbert. , [place], [place]. Referring Provider: Raad Rock [facility] [address], [place], [facility]. tel: [facility], [address], [place], [place], [address], [place] tel:[phone] [place] Presence of left artificial shoulder joint [place]-1 9- 9 Cosme Gilbert. , [place], [place]. Referring Provider: Raad Rock [facility] [address], [place], [facility]. tel: [facility], [address], [place], [place], [address], [place] tel:[phone] [place] Presence of left artificial shoulder joint [place]-1 9 Cosme [place]. , [place], [place]. Referring Provider: Raad Rock [facility] [address], [place], [facility]. tel: [facility], [address], [place], [place], [address], [place] tel:[phone] [place] Presence of left artificial shoulder joint [place]-1 9 Cosme [place]. , [place], [place]. Referring Provider: aRad Rock [facility] [address], [place], [facility]. tel: [facility], [address], [place], [place], [address], [place] tel:[phone] [place] Presence of left artificial shoulder joint [place]-1 9 Cosme Gilbert. , [place], [place]. Referring Provider: Raad Rock [facility] [address], [place], [facility]. tel: [facility], [place], [place], [address], [place] tel:[phone] [place] Presence of left artificial shoulder joint [place]-1 0-201 9 [place]. , [place], [place]. Referring Provider: Raad Rock [facility] [address], [place], [facility]. tel:[phone] [facility], [address], [place], [place], [address], [place] tel:[phone] [place] Presence of left artificial shoulder joint [place]-0 7-201 9 [place]. , [place], [place]. Referring Provider: Raad Rock [facility] [address], [place], [facility]. tel: [facility] [address], [place], [place], [address], [place] tel:[phone] [place] Presence of left artificial shoulder joint [place]-0 5-201 9 [facility] , [place] [place]. Referring Provider: Raad Rock [facility] [address], [place], [facility]. tel: [facility] [address], [place], [place], [address], [place] tel:[phone] [place] Presence of left artificial shoulder joint [place]-0 3-201 9 [facility] , [place]. Referring Provider: Raad Rock [facility] [address], [place], [facility]. tel: [facility] [address], [place], [place], [address], [place] tel:[phone] [place] Presence of left artificial shoulder joint May-2 9-201 9 Niederhoffer Larissa. . Referring Provider: Raad Rock [facility] [address], [place], [facility]. tel: [facility], [place], [place], [address], [place] tel:[phone] [place] Presence of left artificial shoulder joint May-2 2-201 9 Niederhoffer Larissa. . Referring Provider: Raad Rock [facility] [address], [place], [facility]. tel:[phone] [facility] [address] [facility], [place], [place], [address], [place] tel:[phone] [place] Presence of left artificial shoulder joint September-2 0- 9 [facility] , [place]. Referring Provider: Raad Rock [facility] [address], [place], [facility]. tel:[phone] [facility] [address], [place], [place], [address], [place] tel:[phone] [place] Presence of left artificial shoulder joint 9 [facility] , [place]. Referring Provider: Raad Rock [facility] [address], [place], [facility]. tel:[phone] [facility] [address] [facility] 300, [place], [place], [address], [place] tel:[phone] [place] Presence of left artificial shoulder joint 0 9 [facility] , [place]. Referring Provider: Raad Rock [facility] [address], [place], [facility]. tel:[phone] [facility] [address] [facility], [place], [place], [address], [place] tel:[phone] [place] Pain in left shoulderStiff ness of left shoulder, not elsewhere classifiedOth symptoms and signs involving the musculoskelet al systemAbnorma l postureUnspec ified osteoarthriti s, unspecified site 0 201 8 [facility] , [place], [place]. Referring Provider: Raad Rock [facility] [address], [place], [facility]. tel:[phone] [facility] [facility], [place], [place], [address], [place] tel:[phone] [place] Pain in left shoulderStiff ness of left shoulder, not elsewhere classifiedOth symptoms and signs involving the musculoskelet al systemAbnorma l postureUnspec ified osteoarthriti s, unspecified site 8 Ba HuntSP[place]ER, [place], [place]. Referring Provider: Raad Rock [facility] [address], [place], [facility]. tel:[phone] [facility] [address] [address], [place], [place], [address], [place] tel:[phone] [place] Pain in left shoulderStiff ness of left shoulder, not elsewhere classifiedOth symptoms and signs involving the musculoskelet al systemAbnorma l postureUnspec ified osteoarthriti s, unspecified site 8 Guido Morrison. . Referring Provider: Raad Rock [facility] [address] , [place], [facility]. tel:[phone] [facility] [address] [place] [address] [address], [place], [place], [address], [place] tel:[phone] [place] No Information 2 5 Luis Alberto Savannah. [address] [place] [address], [address] [place] [address], [facility], [place]. tel:[phone] Referring Provider: Raad Rock [facility] [address], [place], [facility]. tel:[phone] [facility] [address] [facility] 300, [place], [place], [address], [place] tel:[phone] [place] No Information 2 5 Luis Alberto Sav[place]. [address] [facility], [address], [place], [facility], [place]. tel:[phone] Referring Provider: Raad Rock [facility] [address], [place], [facility]. tel:[phone] [facility] [facility], [place], [place], [address], [place] tel:[phone] [place] No Information 2 0 5 Luis Alberto Savannah. [address] [place] [address], [address], [place], [address], [place]. tel:[phone] Referring Provider: Say Kolb [address] [place] [address] [address], [place], [address]. tel:[phone], [place], [place], [address], [place] tel:[phone] [place] No Information Luis Alberto Savannah. [address] [place] [address], [address], [place], [address], [place]. tel:[phone] Referring Provider: Say Kolb [address] [place] [address] [address], [place], [address]. tel:[phone] [address], [place], [place], [address], [place] tel:[phone] [place] No Information Luis Alberto Savannah. [address] [place] [address], [address], [place], [address], [place]. tel:[phone] Referring Provider: Say Kolb [address] [place] [address] [address], [place], [address]. tel:[phone] [address], [place], [place], [address], [place] tel:[phone] [place] No Information 5 Luis Alberto Savannah. [address] [place] [address], [address], [place], [address], [place]. tel:[phone] Referring Provider: Say Kolb [facility] [address], [place], [address]. tel:[phone] [address], [place], [place], [address], [place] tel:[phone] [place] No Information 5 Luis Alberto Nuñez. [address] [facility], [address], [place], [address], [place]. tel:[phone] Referring Provider: Say Kolb [address] [place] [address] [address], [place], [address]. tel:[phone], [place], [place], [address], [place] tel:[phone] [place] No Information 0 5 Luis Alberto Nuñez. [address] [facility], [address], [place], [facility], [place]. tel:[phone] Referring Provider: Say Kolb [address] [place] [address] [address], [place], [address]. tel:[phone], [place], [place], [address], [place] tel:[phone] [place] No Information 5 Luis Alberto Nuñez. [address] [place] [address], [address], [place], [facility], [place]. tel:[phone] Referring Provider: Say Kolb [address] [place] [address] [address], [place], [address]. tel:[phone] [address], [place], [place], [address], [place] tel:[phone] [place] Pain in joint involving lower leg Dec-0 3 5 Luis Alberto Savannah. [address] [place] [address], [address], [place], [address], [place]. tel:[phone] Referring Provider: Raad Rock [facility] [address], [place], [address]. tel:[phone] [address], [place], [place], [address], [place] tel:[phone] [place] No Information 4 Cordovaelsi Ortegai. [address] [place] [address], [address], [place], [facility], [place]. tel:[phone] Referring Provider: Say Kolb [address] [place] [address] 162 [address], [place], [address]. tel:[phone] [facility], [address] [place] [address] [address], [place], [place], [address], [place] tel:[phone] [place] No Information Oct-0 6-201 4 Cordova Mayelin. [address] [place] [address], [address], [place], [facility], . tel:[phone] Referring Provider: Say Kolb [address] [place] [address], [facility]. tel:[phone] [facility] [address] [place], [place] [address], [place], [place], [address], tel:[phone] [place] No Information Oct-0 3-201 4 Cordova Mayelin. [address] [place] [address], [address], [place], [facility], . tel:[phone] Referring Provider: Say Kolb [address] [place] [address] [place] [address], [facility]. tel:[phone] [facility] [address] [place], [place] [address], [place], [place], [address], tel:[phone] [place] No Information Sep-2 9-201 4 Cordova Mayelin. [address] [place] [address], [address], [place], [facility], . tel:[phone] Referring Provider: Say Kolb [address] [place] [address] [address], [place], [facility]. tel:[phone] [address], [place], [place], [address], [place] tel:[phone] [place] No Information Sep-2 6-201 4 Cordova Mayelin. [address] [place] [address], [address], [place], [facility], . tel:[phone] Referring Provider: Say Kolb [address] [place] [address] [address], [place], [facility]. tel:[phone] [facility] [address] [place], [place] [address], [place], [place], [address], tel:[phone] [place] No Information Sep-2 2-201 4 Cordova Mayelin. [address] [place] [address], [address], [place], [address], [place]. tel:[phone] Referring Provider: Say Kolb [address] [place] [address] 162 [address] , [place], [facility]. tel:[phone] [address], [place], [place], [address], [place] tel:[phone] [place] No Information Sep-1 6-201 4 Cordova Mayelin. [address] [place] [address], [address], [place], [facility], [place]. tel:[phone] Referring Provider: Raad Rock [facility] [address] [place] [address], [facility]. tel:[phone] [address], [place], [place], [address], [place] tel:[phone] [place] No Information Sep-1 2-201 4 Cordova Mayelin. [address] [place] [address], [address], [place], [facility], [place]. tel:[phone] Referring Provider: Raad Rock [facility] [address], [place], [address]. tel:[phone] [address], [place], [place], [address], [place] tel:[phone] [place] No Information Sep-0 8-201 4 Cordova Mayelin. [address] [place] [address], [address], [place], [address], [place]. tel:[phone] Referring Provider: Ela Rock[address] [place] [address] [address] [place] [address], [address]. tel:[phone] [address], [place], [place], [address], [place] tel:[phone] [place] No Information Sep-0 5-201 4 Cordova Mayelin. [address] [place] [address], [address], [place], [address], [place]. tel:[phone] Referring Provider: Say Kolb [facility] [address], [place], [address]. tel:[phone] [address], [place], [place], [address], tel:[phone] [place] No Information Sep-0 3-201 4 Cordova Mayelin. [address] [place] [address], [address], [place], [facility], [place]. tel:[phone] Referring Provider: Say Kolb [address] [place] [address] [address], [place], [address]. tel:[phone] [address], [place], [place], [address], tel:[phone] [place] No Information Aug-2 8-201 4 Cordova Mayelin. [address] [place] [address], [address], [place], [facility], [place]. tel:[phone] Referring Provider: Say Kolb [address] [place] [address] 162 [address], [place], [address]. tel:[phone] [address], [place], [place], [address], [place] tel:[phone] [place] No Information Aug-2 6-201 4 Cordova Mayelin. [address] [place] [address], [address], [place], [facility], . tel:[phone] Referring Provider: Say Kolb [address] [place] [address] 162 [address], [place], [address]. tel:[phone] [address], [place], [place], [address], [place] tel:[phone] [place] No Information Aug-2 5-201 4 Cordova Mayelin. [address] [place] [address], [address], [place], [facility], [place]. tel:[phone] Referring Provider: Say Kolb [address] [place] [address] 162 [address], [place], [address]. tel:[phone] [facility] [address], [place], [place], [address], [place] tel:[phone] [place] No Information 4 Cordova Mayelin. [address] [place] [address], [address], [place], [facility], . tel:[phone] Referring Provider: Say Kolb [address] [place] [address] [address], [place], [facility]. tel:[phone], [place], [place], [address], [place] tel:[phone] [place] No Information 4 Cordova Mayelin. [address] [place] [address], [address], [facility], . tel:[phone] Referring Provider: Say Kolb [address] [place] [address] [place] [address], [facility]. tel:[phone] [facility] [address] [place], [place] [address], [place], [place], [address], [place] tel:[phone] [place] No Information 4 Cordova Mayelin. [address] [place] [address], [address], [place], [facility], [place]. tel:[phone] Referring Provider: aSy Kolb [address] [place] [address] [address], [place], [address]. tel:[phone] [address], [place], [place], [address], [place] tel:[phone] [place] No Information 4 Cordova Mayelin. [address] [place] [address], [address], [place], [facility], . tel:[phone] Referring Provider: Say Kolb [address] [place] [address] [address], [place], [facility]. tel:[phone] [facility] [address] [place], [place] [address], [place], [place], [address], [place] tel:[phone] [place] No Information 2 4 Cordova Mayelin. [address] [place] [address], [address], [place], [facility], . tel:[phone] Referring Provider: Raad Rock [address], [facility]. tel:[phone], [address], tel:[phone] [place] No Information 4 Cordova Mayelin. [address] [place] [address], [address], [place], [facility], . tel:[phone] Referring Provider: Ela Rock[address] [place] [address], [facility]. tel:[phone], [address], tel:[phone] [place] No Information 201 4 Cordova Mayelin. [address] [place] [address], [address], [place], [facility], . tel:[phone] Referring Provider: Raad Rock [address], [facility]. tel:[phone], [address], tel:[phone] [place] Pain in joint involving ankle and foot 201 4 Cordova Mayelin. [address] [place] [address], [address], [place], [facility], . tel:[phone] Referring Provider: Raad Rock [address] [place] [address], [facility]. tel:[phone] Family History Family Member Type Diagnosis Age At Onset No Information Payers Payer name Insurance type Covered constitution party ID Sloane meier(s) [employer] CI [id number] Social History Type Description Quantity Date Captured [...]
== END 2024-09-05 09:04 | disposition home or self-care (01) ==
LOC: CHSIMG 09:04
PROVIDERS: PCP Family Medicine; Visit Provider Nurse Practitioner Family
DX: E27.8 Other specified disorders of adrenal gland (principal)
CPT/HCPCS: 74183; A9577

== ENCOUNTER 2025-02-20 10:18 | Outpatient (CLI) | payer MEDICARE, MEDICAID, SELFPAY ==
--- OUTSIDE RECORDS SUMMARY | 2018-10-28 12:30 | XMS_ITS | Continuity of Care Document ---
Author Organization [employer] [place] Address [address] [place] [address] [address] [place] [address] Phone Care Team Providers Care Circular Shear Operator Name Role Phone Cosme PT,MPT,ATC, Gilbert Unavailable Unavai lable Procedures Procedure Date Therapeutic Exercise Therapeutic Activities Neuromuscular Re-Ed Progress Note Therapeutic Exercise Therapeutic Activities Neuromuscular Re-Ed Therapeutic Exercise Therapeutic Activities Neuromuscular Re-Ed Therapeutic Exercise Therapeutic Activities Neuromuscular Re-Ed Therapeutic Exercise Therapeutic Activities Manual Therapy Therapeutic Exercise Therapeutic Activities Manual Therapy Therapeutic Exercise Therapeutic Activities Manual Therapy Therapeutic Exercise Therapeutic Activities Manual Therapy Therapeutic Exercise Therapeutic Activities Manual Therapy Therapeutic Exercise Therapeutic Activities Manual Therapy Therapeutic Exercise Therapeutic Activities Manual Therapy Therapeutic Exercise Therapeutic Activities Manual Therapy Therapeutic Exercise Therapeutic Activities Manual Therapy Therapeutic Exercise Therapeutic Activities Manual Therapy PT Evaluation High Complexity 9 Therapeutic Exercise Therapeutic Activities Therapeutic Exercise Other PT/OT Primary Functional Limitatio n-Current Other PT/OT Primary Functional Limitaion -Goal Therapeutic Exercise PT Evaluation Moderate Complexity Therapeutic Exercise Other PT/OT Primary Functional Limitatio n-Current Other PT/OT Primary Functional Limitaion -Goal THERAPEUTIC EXERCISES NEUROMUSCULAR RE-ED MANUAL THERAPY FUNC ACTIVITY HOT/COLD PACK ELECTRIC STIMULATION UNATT Medications Name Dose Freq Route DOC Dec THERAPEUTIC EXERCISES NEUROMUSCULAR RE-ED MANUAL THERAPY FUNC ACTIVITY HOT/COLD PACK ELECTRIC STIMULATION UNATT PT RE-EVALUATION THERAPEUTIC EXERCISES NEUROMUSCULAR RE-ED MANUAL THERAPY FUNC ACTIVITY /COLD PACK ELECTRIC STIMULATION UNATT Mobility: Walking And Moving Limitations -[facility] Mobility: Walking And Moving Limitation- Goal Medications Name Dose Freq Route DOC Dec THERAPEUTIC EXERCISES NEUROMUSCULAR RE-ED MANUAL THERAPY FUNC ACTIVITY HOT/COLD PACK ELECTRIC STIMULATION UNATT THERAPEUTIC EXERCISES NEUROMUSCULAR RE-ED MANUAL THERAPY FUNC ACTIVITY HOT/COLD PACK ELECTRIC STIMULATION UNATT THERAPEUTIC EXERCISES NEUROMUSCULAR RE-ED MANUAL THERAPY FUNC ACTIVITY HOT/COLD PACK ELECTRIC STIMULATION UNATT 13-2015 THERAPEUTIC EXERCISES NEUROMUSCULAR RE-ED MANUAL THERAPY FUNC ACTIVITY HOT/COLD PACK ELECTRIC STIMULATION UNA Medications Name Dose Freq Route DOC Dec THERAPEUTIC EXERCISES NEUROMUSCULAR RE-ED MANUAL THERAPY FUNC ACTIVITY HOT/COLD PACK ELECTRIC STIMULATION UNA THERAPEUTIC EXERCISES MANUAL THERAPY FUNC ACTIVITY HOT/COLD PACK ELECTRIC STIMULATION UNA PT EVALUATION THERAPEUTIC EXERCISES HOT/COLD PACK ELECTRIC STIMULATION UNA Mobility: Walking And Moving Limitations -Curent Mobility: Walking And Moving Limitation- Goal Medications Name Dose Freq Route DOC Dec Pain Assess Positive DOC 2014 BMI NOT Performed or Calculated NO F/U P jamia NO Reason Specified Functional Outcome Assessmen t documented, deficits identified, treatment plan es THERAPEUTIC EXERCISES NEUROMUSCULAR RE-ED MANUAL THERAPY FUNC ACTIVITY PT RE-EVALUATION THERAPEUTIC EXERCISES NEUROMUSCULAR RE-ED MANUAL THERAPY FUNC ACTIVITY HOT/COLD PACK ELECTRIC STIMULATION UNA THERAPEUTIC EXERCISES NEUROMUSCULAR RE-ED MANUAL THERAPY FUNC ACTIVITY HOT/COLD PACK ELECTRIC STIMULATION THERAPEUTIC EXERCISES NEUROMUSCULAR RE-ED MANUAL THERAPY FUNC ACTIVITY HOT/COLD PACK ELECTRIC STIMULATION UNA THERAPEUTIC EXERCISES NEUROMUSCULAR RE-ED MANUAL THERAPY FUNC ACTIVITY HOT/COLD PACK ELECTRIC STIMULATION UNA THERAPEUTIC EXERCISES NEUROMUSCULAR RE-ED MANUAL THERAPY FUNC ACTIVITY HOT/COLD PACK ELECTRIC STIMULATION UNATT THERAPEUTIC EXERCISES NEUROMUSCULAR RE-ED MANUAL THERAPY FUNC ACTIVITY HOT/COLD PACK ELECTRIC STIMULATION UNA THERAPEUTIC EXERCISES NEUROMUSCULAR RE-ED MANUAL THERAPY FUNC ACTIVITY HOT/COLD PACK ELECTRIC STIMULATION UNA THERAPEUTIC EXERCISES NEUROMUSCULAR RE-ED MANUAL THERAPY FUNC ACTIVITY HOT/COLD PACK ELECTRIC STIMULATION UNATT THERAPEUTIC EXERCISES NEUROMUSCULAR RE-ED MANUAL THERAPY FUNC ACTIVITY HOT/COLD PACK ELECTRIC STIMULATION UNA THERAPEUTIC EXERCISES NEUROMUSCULAR RE-ED MANUAL THERAPY FUNC ACTIVITY HOT/COLD PACK ELECTRIC STIMULATION UNA THERAPEUTIC EXERCISES NEUROMUSCULAR RE-ED MANUAL THERAPY FUNC ACTIVITY HOT/COLD PACK ELECTRIC STIMULATION UNA THERAPEUTIC EXERCISES NEUROMUSCULAR RE-ED MANUAL THERAPY FUNC ACTIVITY GAIT TRAINING 15 MIN HOT/COLD PACK ELECTRIC STIMULATION UNA PT RE-EVALUATION THERAPEUTIC EXERCISES NEUROMUSCULAR RE-ED MANUAL THERAPY FUNC ACTIVITY GAIT TRAINING 15 MIN HOT/COLD PACK ELECTRIC STIMULATION UNA THERAPEUTIC EXERCISES NEUROMUSCULAR RE-ED MANUAL THERAPY FUNC ACTIVITY GAIT TRAINING 15 MIN HOT/COLD PACK ELECTRIC STIMULATION UNATT THERAPEUTIC EXERCISES NEUROMUSCULAR RE-ED MANUAL THERAPY FUNC ACTIVITY HOT/COLD PACK ELECTRIC STIMULATION UNATT THERAPEUTIC EXERCISES NEUROMUSCULAR RE-ED MANUAL THERAPY FUNC ACTIVITY HOT/COLD PACK ELECTRIC STIMULATION UNATT THERAPEUTIC EXERCISES NEUROMUSCULAR RE-ED MANUAL THERAPY FUNC ACTIVITY HOT/COLD PACK ELECTRIC STIMULATION UNATT THERAPEUTIC EXERCISES MANUAL THERAPY FUNC ACTIVITY GAIT TRAINING 15 MIN HOT/COLD PACK ELECTRIC STIMULATION UNATT THERAPEUTIC EXERCISES MANUAL THERAPY FUNC ACTIVITY GAIT TRAINING 15 MIN HOT/COLD PACK ELECTRIC STIMULATION UNATT THERAPEUTIC EXERCISES MANUAL THERAPY /COLD PACK ELECTRIC STIMULATION UNATT PT EVALUATION THERAPEUTIC EXERCISES MANUAL THERAPY HOT/COLD PACK ELECTRIC STIMULATION UNATT Advance Directives Directive Yes / No Effective Date File Name No Information Encounters Encounter Description Practice Location Reason(s) For Visit Diagnoses Date Provider Providers Copied on Encounter [facility] [facility], [place], [place], [id number], [place] tel:[phone] [place] Presence of left artificial shoulder joint 9 [place], [place], [place]. Referring Provider: Say Kolb , [address], [place], [address]. tel:[phone] [facility], [place], [place], [address], [place] tel:[phone] [place] Presence of left artificial shoulder joint [place]-2 9 Cosme Gilbert. , [place], [place]. Referring Provider: Raad Rock [facility] [address], [place], [facility]. tel: [facility], [address], [place], [place], [address], [place] tel:[phone] [place] Presence of left artificial shoulder joint [place]-1 9- 9 Cosme Gilbert. , [place]. Referring Provider: Raad Rock [facility] [address], [place], [facility]. tel: [facility], [address], [place], [place], [address], [place] tel:[phone] [place] Presence of left artificial shoulder joint [place]-1 9 Cosme Gilbert. , [place], [place]. Referring Provider: Raad Rock [facility] [address], [place], [facility]. tel: [facility], [address], [place], [place], [address], [place] tel:[phone] [place] Presence of left artificial shoulder joint [place]-1 9 Cosme Gilbert. , [place], [place]. Referring Provider: Raad Rock [facility] [address], [place], [facility]. tel: [facility], [address], [place], [place], [address], [place] tel:[phone] [place] Presence of left artificial shoulder joint [place]-1 9 Cosme Gilbert. , [place], [place]. Referring Provider: Raad Rock [facility] [address], [place], [facility]. tel: [facility], [place], [place], [address], [place] tel:[phone] [place] Presence of left artificial shoulder joint [place]-1 0-201 9 [place]. , [place], [place]. Referring Provider: Raad Rock [facility] [address], [place], [facility]. tel:[phone] [facility], [address], [place], [place], [address], [place] tel:[phone] [place] Presence of left artificial shoulder joint [place]-0 7-201 9 [place] Gilbert. , [place], [place]. Referring Provider: Raad Rock [facility] [address], [place], [facility]. tel: [facility] [address], [place], [place], [address], [place] tel:[phone] [place] Presence of left artificial shoulder joint [place]-0 5-201 9 [facility] [place] [place]. Referring Provider: Raad Rock [facility] [address], [place], [facility]. tel: [facility] [address], [place], [place], [address], [place] tel:[phone] [place] Presence of left artificial shoulder joint [place]-0 3-201 9 [facility] [place] Referring Provider: Raad Rock [facility] [address], [place], [facility]. tel: [facility] [address], [place], [place], [address], [place] tel:[phone] [place] Presence of left artificial shoulder joint May-2 9-201 9 Niederhoffer Larsisa. . Referring Provider: Raad Rock [facility] [address], [place], [facility]. tel: [facility], [place], [place], [address], [place] tel:[phone] [place] Presence of left artificial shoulder joint May-2 2-201 9 Niederhoffer Larissa. . Referring Provider: Raad Rock [facility] [address], [place], [facility]. tel:[phone] [facility] [address] [facility] [address], [place], [place], [address], [place] tel:[phone] [place] Presence of left artificial shoulder joint September-2 0- 9 [facility] [place] Referring Provider: Raad Rock [facility] [address], [place], [facility]. tel:[phone] [facility] [address], [place], [place], [address], [place] tel:[phone] [place] Presence of left artificial shoulder joint 9 [facility] [place] Referring Provider: Raad Rock [facility] [address], [place], [facility]. tel:[phone] [facility] [address] [facility] [address], [place], [place], [address], [place] tel:[phone] [place] Presence of left artificial shoulder joint 0 9 [facility] [place] Referring Provider: Raad Rock [facility] [address], [place], [facility]. tel:[phone] [facility] [address] [facility] [facility] [address] [address], [place], [place], [address], [place] tel:[phone] [place] Pain in left shoulderStiff ness of left shoulder, not elsewhere classifiedOth symptoms and signs involving the musculoskelet al systemAbnorma l postureUnspec ified osteoarthriti s, unspecified site 0 201 8 [facility] , [place]. Referring Provider: Raad Rock [facility] [address], [place], [facility]. tel:[phone] [facility], [place], [place], [address], [place] tel:[phone] [place] Pain in left shoulderStiff ness of left shoulder, not elsewhere classifiedOth symptoms and signs involving the musculoskelet al systemAbnorma l postureUnspec ified osteoarthriti s, unspecified site 8 [place], [place]. Referring Provider: Raad Rock [facility] [address], [place], [facility]. tel:[phone] [facility] [address] [address], [place], [place], [address], [place] tel:[phone] [place] Pain in left shoulderStiff ness of left shoulder, not elsewhere classifiedOth symptoms and signs involving the musculoskelet al systemAbnorma l postureUnspec ified osteoarthriti s, unspecified site 8 Guido Morrison. . Referring Provider: Raad Rock [facility] [address] , [place], [facility]. tel:[phone] [facility] [address] [place] [address] 300, [place], [place], [address], [place] tel:[phone] [place] No Information 2 5 Luis Alberto [place]. [address] [place] [address], [address] [place] [address], [facility], [place]. tel:[phone] Referring Provider: Raad Rock [facility] [address], [place], [facility]. tel:[phone] [facility] [address] [facility] 300, [place], [place], [address], [place] tel:[phone] [place] No Information 2 5 Luis Alberto [place]. [address] [facility], [address], [place], [facility], [place]. tel:[phone] Referring Provider: Raad Rock [facility] [address], [place], [facility]. tel:[phone] [facility] [facility] [address], [place], [place], [address], [place] tel:[phone] [place] No Information 2 0 5 Luis Alberto Sav[place]. [address] [place] [address], [address], [place], [address], [place]. tel:[phone] Referring Provider: Say Kolb [address] [place] [address] [address], [place], [address]. tel:[phone], [place], [place], [address], [place] tel:[phone] [place] No Information Luis Alberto Savannah. [address] [place] [address], [address], [place], [address], [place]. tel:[phone] Referring Provider: Say Kolb [address] [place] [address] 162 [address], [place], [address]. tel:[phone] [address], [place], [place], [address], [place] tel:[phone] [place] No Information Luis Alberto Savannah. [address] [place] [address], [address], [place], [address], [place]. tel:[phone] Referring Provider: Say Kolb [address] [place] [address] 162 [address], [place], [address]. tel:[phone] [address], [place], [place], [address], [place] tel:[phone] [place] No Information 5 Luis Alberto Savannah. [address] [place] [address], [address], [place], [address], [place]. tel:[phone] Referring Provider: Say Kolb [facility] [address], [place], [address]. tel:[phone] [address], [place], [place], [address], [place] tel:[phone] [place] No Information 5 Luis Alberto Nuñez. [address] [facility], [address], [place], [address], [place]. tel:[phone] Referring Provider: Say Kolb [address] [place] [address] [address], [place], [address]. tel:[phone], [place], [place], [address], [place] tel:[phone] [place] No Information 0 5 Luis Alberto Nuñez. [address] [facility], [address], [place], [place], [facility], [place]. tel:[phone] Referring Provider: Say Kolb [address] [place] [address] [address], [place], [address]. tel:[phone], [place], [place], [address], [place] tel:[phone] [place] No Information 5 Luis Alberto Nuñez. [address] [place] [address], [address], [place], [facility], [place]. tel:[phone] Referring Provider: Say Kolb [address] [place] [address] 162 [address], [place], [address]. tel:[phone] [address], [place], [place], [address], [place] tel:[phone] [place] Pain in joint involving lower leg Dec-0 3 5 Luis Alberto Savannah. [address] [place] [address], [address], [place], [address], [place]. tel:[phone] Referring Provider: Raad Rock [facility] [address], [place], [address]. tel:[phone] [address], [place], [place], [address], [place] tel:[phone] [place] No Information 4 Cordovaelsi Ortegai. [address] [place] [address], [address], [place], [facility], [place]. tel:[phone] Referring Provider: Say Kolb [address] [place] [address] 162 [address], [place], [address]. tel:[phone] [facility], [address] [place] [address] [address], [place], [place], [address], [place] tel:[phone] [place] No Information Oct-0 6-201 4 Cordova Mayelin. [address] [place] [address], [address], [facility], . tel:[phone] Referring Provider: Say Kolb [address] [place] [address], [facility]. tel:[phone] [facility] [address] [place], [place] [address], [place], [place], [address], tel:[phone] [place] No Information Oct-0 3-201 4 Cordova Mayelin. [address] [place] [address], [address], [facility], . tel:[phone] Referring Provider: Say Kolb [address] [place] [address] [place] [address], [facility]. tel:[phone] [facility] [address] [place], [place] [address], [place], [place], [address], tel:[phone] [place] No Information Sep-2 9-201 4 Cordova Mayelin. [address] [place] [address], [address], [facility], . tel:[phone] Referring Provider: Say Kolb [address] [place] [address] 162 [address], [place], [facility]. tel:[phone] [address], [place], [place], [address], [place] tel:[phone] [place] No Information Sep-2 6-201 4 Cordova Mayelin. [address] [place] [address], [address], [facility], . tel:[phone] Referring Provider: Say Kolb [address] [place] [address] 162 [address], [place], [facility]. tel:[phone] [facility] [address] [place], [place] [address], [place], [place], [address], tel:[phone] [place] No Information Sep-2 2-201 4 Cordova Mayelin. [address] [place] [address], [address], [place], [address], [place]. tel:[phone] Referring Provider: Say Kolb [address] [place] [address] 162 [address] , [place], [facility]. tel:[phone] [address], [place], [place], [address], [place] tel:[phone] [place] No Information Sep-1 6-201 4 Cordova Mayelin. [address] [place] [address], [address], [place], [facility], [place]. tel:[phone] Referring Provider: Raad Rock [facility] [address] [place] [address], [facility]. tel:[phone] [address], [place], [place], [address], [place] tel:[phone] [place] No Information Sep-1 2-201 4 Cordova Mayelin. [address] [place] [address], [address], [place], [facility], [place]. tel:[phone] Referring Provider: Raad Rock [facility] [address], [place], [address]. tel:[phone] [address], [place], [place], [address], [place] tel:[phone] [place] No Information Sep-0 8-201 4 Cordova Mayelin. [address] [place] [address], [address], [place], [address], [place]. tel:[phone] Referring Provider: Ela Rock[address] [place] [address] [address] [place] [address], [address]. tel:[phone] [address], [place], [place], [address], [place] tel:[phone] [place] No Information Sep-0 5-201 4 Cordova Mayelin. [address] [place] [address], [address], [place], [address], [place]. tel:[phone] Referring Provider: Say Kolb [facility] [address], [place], [address]. tel:[phone] [address], [place], [place], [address], tel:[phone] [place] No Information Sep-0 3-201 4 Cordova Mayelin. [address] [place] [address], [address], [place], [facility], [place]. tel:[phone] Referring Provider: Say Kolb [address] [place] [address] [address], [place], [address]. tel:[phone] [address], [place], [place], [address], tel:[phone] [place] No Information Aug-2 8-201 4 Cordova Mayelin. [address] [place] [address], [address], [facility], [place]. tel:[phone] Referring Provider: Say Kolb [address] [place] [address] 162 [address], [address]. tel:[phone] [address], [place], [place], [address], [place] tel:[phone] [place] No Information Aug-2 6-201 4 Cordova Mayelin. [address] [place] [address], [address], [facility], . tel:[phone] Referring Provider: Say Kolb [address] [place] [address] 162 [address], [place], [address]. tel:[phone] [address], [place], [place], [address], [place] tel:[phone] [place] No Information Aug-2 5-201 4 Cordova Mayelin. [address] [place] [address], [address], [place], [facility], [place]. tel:[phone] Referring Provider: Say Kolb [address] [place] [address] 162 [address], [place], [address]. tel:[phone] [facility] [address], [place], [place], [address], [place] tel:[phone] [place] No Information 4 Cordova Mayelin. [address] [place] [address], [address], [facility], . tel:[phone] Referring Provider: Say Kolb [address] [place] [address] 162 [address], [facility]. tel:[phone], [place], [place], [address], [place] tel:[phone] [place] No Information 4 Cordova Mayelin. [address] [place] [address], [address], [facility], . tel:[phone] Referring Provider: Say Kolb [address] [place] [address] [place] [address], [facility]. tel:[phone] [facility] [address] [place], [place] [address], [place], [place], [address], [place] tel:[phone] [place] No Information 4 Cordova Mayelin. [address] [place] [address], [address], [facility], [place]. tel:[phone] Referring Provider: Say Kolb [address] [place] [address] 162 [address], [address]. tel:[phone] [address], [place], [place], [address], [place] tel:[phone] [place] No Information 4 Cordova Mayelin. [address] [place] [address], [address], [facility], . tel:[phone] Referring Provider: Say Kolb [address] [place] [address] 162 [address], [facility]. tel:[phone] [facility] [address] [place], [place] [address], [place], [place], [address], [place] tel:[phone] [place] No Information 2 4 Cordova Mayelin. [address] [place] [address], [address], [facility], . tel:[phone] Referring Provider: Raad Rock [address], [facility]. tel:[phone], [id number], tel:[phone] [place] No Information 4 Cordova Mayelin. [address] [place] [address], [address], [facility], . tel:[phone] Referring Provider: Ela Rock[address] [place] [address], [facility]. tel:[phone], [id number], tel:[phone] [place] No Information [address]. [address] [place] [address], [address], [place], [facility], . tel:[phone] Referring Provider: Raad Rock [address], [facility]. tel:[phone], [id number], tel:[phone] [place] Pain in joint involving ankle and foot [address] [place] [address], [address], [place], [facility], . tel:[phone] Referring Provider: Raad Rock [place] [address] [place] [address], [facility]. tel:[phone] Family History Family Member Type Diagnosis Age At Onset No Information Payers Payer name Insurance type Covered alliance party ID Sloane meier(s) [employer] CI [id number] Social History Type Description Quantity Date Captured Comments Sex Female Smoking Status No Information Chief Complaint And Reason For Visit No Information Reason For Referral Reason For Referral No Information History Of Present Illness Encounter Date Complaint History Of Prese nt Illness No Information Functional Status Date Functional Assessmen t No Information Instructions Date Instruction Additional Infor mation No Information Assessments Type Assessment Date No Information Patient Care Teams Name Effective Dates (start - stop) Status Members No Information
--- OUTSIDE RECORDS SUMMARY | 2025-02-20 10:21 | XMS_ITS | Clinical Summary ---
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 Body Mass Index 41.17 04/10/2019 11:07 AM 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 Plan of Treatment Health Maintenance Due Date Last Done Comments Hepatitis C Virus (HCV) Screening 1970 TdaP Immunization 1970 Hepatitis B Immunization (1 of 3 - 19+ 3-dose series) 1989 Pap Smear 1991 Medicare Initial AWV [id number] 08/04/1994 Cervical Cancer Screening (CCS) 02/12/2000 HPV/Cotest 02/12/2000 Cologuard 2015 Immunochemical Fecal Occult Blood 2015 Pneumococcal Immunization (5 0+ years) (1 of 1 - PCV) 02/12/2020 Zoster Immunization (1 of 2) 02/12/2020 Influenza Immunization (#1) 2025 12/0 10/2018, 04/06/2013 SARS-COV-2 Immunization (1 - 2023- season) 2025 Colonoscopy 11/10/2027 11/09/2017, 05/05/2013 Colorectal Cancer Screening 11/10/2027 Respiratory Syncytial Virus (RSV) Immunization (Adult) (1 - 1-dose 75+ series) 2045 DTaP/Tdap/Td Immunization Discontinued 06/06/2010 Human Papillomavirus (HPV) Immunization Aged Out No longer eligible based on patient's age to complete this topic Meningococcal Immunization (ACWY) Aged Out No longer eligible based on patient's age to complete this topic Rotavirus Immunization Aged Out No lo nger eligible based on patient's age to complete this topic Procedures Procedure Name Priority Date/Time Associated Diagnosis Comments COLONOSCOPY Routine 11/09/2017 from Last 3 Months or Most Recently Relevant to Health Maintenance Results * COLONOSCOPY (11/09/2017) Ricardo Kate Crispin DO PROCEDURE/MINOR SURGICAL ORDERA BLES Final Result from Last 3 Months or Most Recently Relevant to Health Maintenance Insurance MEDICAID [place] MEDICARE C [employer] on file Care Teams Distribution Systems Superintendent Relationship Specialty Start Date End Date Provider, Not On File [place] PCP - General 07/17/19
--- OUTSIDE RECORDS SUMMARY | 2025-02-20 10:21 | XMS_ITS | Clinical Summary ---
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 Gender Identity Not on file Sexual Orientation [...] COVID-19 Vaccine ( - 2023-2 5 season) 2025 Influenza Adult (#1) 2025 Cervical Cancer Screening Pa p with HPV [...] PAPILLOMAVIRUS, HIGH-RISK TYPES Routine 04/12/2021 8:00 AM DROPHAMMER OPERATOR from Last 3 Months or Most Recently Relevant to Health Maintenance Results * HUMAN PAPILLOMAVIRUS, HIGH-RISK TYPES (04/12/2021 8:00 AM DROPHAMMER OPERATOR) SPEC DESCRIPTION CERVIX 04/14/20 3:55 PM DROPHAMMER OPERATOR [facility] HPV DNA HIGH RISK NEGATIVE NEGATIVE 04/17/2021 2:49 PM DROPHAMMER OPERATOR [facility] Comment:SEE CYTOLOGY REPORT 04/12/2021 8:00 AM DROPHAMMER OPERATOR Sameera Salazar PACKER DRIED BEEF PATHOLOGY/CYTOLOGY ORDERA BLES Final Result [facility] [address] [place] [address], from Last 3 Months or Most Recently Relevant to Health Maintenance
--- OUTSIDE RECORDS SUMMARY | 2025-02-20 10:21 | XMS_ITS | Patient Health Record ---
Author Organization [facility] Address [address] [place], [place] [id number] Care Team Providers Care Pbx Technician Name Role Phone GURVINDER OTTO Unavailable [phone] Francisco Lowery Unavailable Unavailable Reason For Referral No Information Medications Medication SIG (Take, Route, Frequency, Duration) Notes Start Date End Date Status Medrol Dosepak ORAL Medrol DosepakOr iginal MedicationMedrol Dosepak *Reorder from qualifyor for eRx and Interaction Alerts* 03/26/2016 Active Nabumetone 500 MG Oral Tablet ORAL nabumetone 500 MG Oral TabletOriginal Medicationnabumetone 500 MG Oral Tablet *Reorder from qualifyor for eRx and Interaction Alerts* 03/19/2016 Active Plan Of Treatment No Information Insurance Providers Payer Name Payer Address Payer Phone Subscriber Number Group Number Insured Name Patient Relationship to Insured Coverage Start Date Coverage End Date [employer] [address] [place] [phone] [id number] SABRINA STAHL Spouse - patient is the spouse of the insured [employer] [address] [place] [phone] [id number] LETY STAHL Self - patient is the insured
--- OUTSIDE RECORDS SUMMARY | 2025-02-20 10:21 | XMS_ITS | Clinical Summary ---
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
[2025-02-20 12:30] LABS: Total Protein Urine Random < 7 mg/dL; Ur Ttl Prot Creatinine Ratio 0.05 mg/mg (0-0.20)
[2025-02-20 12:31] LABS: Albumin Level 4.1 g/dL (3.5-5.1); Anion Gap 5 mmol/L (4-12); Blood Urea Nitrogen 16 mg/dL (7-17); Calcium 9.1 mg/dL (8.4-10.2); Carbon Dioxide 33 mmol/L (22-30); Chloride 102 mmol/L (98-107); Estimated Glomerular Filt Rate 49; Glucose 100 mg/dL (65-110); Osmolality Calculated 291 mOsm/kg (285-295); Potassium 4.6 mmol/L (3.4-5.0); Sodium 140 mmol/L (137-145)
== END 2025-02-20 10:19 | disposition home or self-care (01) ==
LOC: CHSLAB 10:19
PROVIDERS: PCP Family Medicine; Visit Provider Internal Medicine Nephrology
DX: I12.9 Hypertensive chronic kidney disease with stage 1 through stage 4 chronic kidney disease, or unspecified chronic kidney disease (principal); N18.31 Chronic kidney disease, stage 3a
CPT/HCPCS: 36415; 80069; 82570; 84156